=== PATIENT | male | born 1955 | race Caucasian/White ===

== ENCOUNTER 2021-09-04 23:52 | Emergency (ER) | payer MEDICARE, OTHER ==
[~2021-09-04] VITALS: Ht 182.9 cm; Wt 104.3 kg
[2021-09-05] MEDS ORDERED: METOPROLOL SUCCINATE XL 50 MG TAB PO ONE (00:15)
[2021-09-05] MEDS ORDERED: OXYCODONE W/ ACETAMINOPHEN 5/325MG TABLET PO ONE (03:30)
[2021-09-05] MEDS ORDERED: HYDROmorphone HCL 2 MG/ML VL IV ONE (04:30)
[2021-09-05] MEDS ORDERED: ONDANSETRON HCL 4 MG/2 ML VIAL IV ONE (04:30)
[2021-09-05 05:30] VITALS: BP 180/99
== END 2021-09-05 06:17 | disposition home or self-care (01) ==
LOC: EDBD 23:52 → ER 23:57
DX: S42.002A Fracture of unspecified part of left clavicle, initial encounter for closed fracture (principal); E78.5 Hyperlipidemia, unspecified; I10 Essential (primary) hypertension; W18.39XA Other fall on same level, initial encounter; Y93.89 Activity, other specified; Y92.89 Other specified places as the place of occurrence of the external cause; Y99.8 Other external cause status
CPT/HCPCS: 70450; 72125; 73030; 96374; 96375; 99285; J1170; J2405

== ENCOUNTER 2022-04-03 00:56 | Inpatient (IN) | payer OTHER ==
[~2022-04-03] VITALS: Ht 182.9 cm; Wt 93.4 kg
[2022-04-03 02:33] LABS: Basophils # (auto) 0 10 ^3/uL (0-0.2); Eosinophils # (auto) 0 10 ^3/uL (0-0.8); Eosinophils % (auto) 0.2 % (0.0-7.0); Lymphocytes # (auto) 0.5 10 ^3/uL (0.4-5.4); Monocytes # (auto) 0.4 10 ^3/uL (0-1.3)
[2022-04-03 02:34] LABS: Basophils % (auto) 0.2 % (0.0-2.0); Hematocrit 18.4 % (41.0-53.0); Lymphocytes % (auto) 6.4 % (10.0-50.0); Mean Corpuscular Hemoglobin 30.4 pg (28.0-32.0); Mean Corpuscular Hgb Conc. 33.8 g/dL (32.0-36.0); Mean Corpuscular Volume 89.8 fL (80.0-100.0); Monocytes % (auto) 4.6 % (0.0-12.0); Neutrophils # (auto) 7.2 10 ^3/uL (1.6-8.6); Neutrophils % (auto) 88.6 % (37.0-80.0); Red Blood Cells 2.05 10^6/uL (4.5-5.90); White Blood Cell 8.1 10^3/uL (4.4-10.8)
[2022-04-03 02:41] LABS: Hemoglobin 6.2 g/dL (13.5-17.5)
[2022-04-03 02:53] LABS: Urine Bacteria MANY /hpf (None Seen); Urine Blood 3+ /uL (Negative); Urine WBC 37 /hpf (0 - 3); Urine WBC Clumps PRESENT /hpf (None Seen)
[2022-04-03 02:53] LABS: Albumin 2.5 g/dL (3.4-5.0); BUN/Creatinine Ratio 24.9; Calcium 7.3 mg/dL (8.5-10.1); Potassium 4.4 mmol/L (3.5-5.1)
[2022-04-03 02:57] LABS: Bilirubin, Total 0.6 mg/dL (0.2-1.0)
[2022-04-03] MEDS ORDERED: PIPERACILLIN-TAZOB 3.375GM 100 ML IV ONE (04:30)
[2022-04-03] MEDS ORDERED: VANCOMYCIN 1GM/250ML 250 ML IV ONE (04:30)
[2022-04-03] MEDS ORDERED: DOCUSATE SOD 100 MG CAP PO PRN (06:45)
[2022-04-03] MEDS ORDERED: SODIUM CHLORIDE 0.9% 2,000 ML IV ONE (06:45)
[2022-04-03] MEDS ORDERED: FUROSEMIDE 40 MG/4 ML VIAL IV ONE (06:45)
[2022-04-03] MEDS ORDERED: MORPHINE SULFATE INJ 2 MG/ml SYRG IV PRN (07:15)
[2022-04-03] MEDS ORDERED: ALBUMIN 25% 100 ML IV ONE (07:15)
[2022-04-03] MEDS ORDERED: NITROGLYCERIN 0.4 MG SL TAB SL PRN (07:15)
[2022-04-03] MEDS: HYDROcodone-ACET 5/325MG TAB PO PRN ×2 (08:01→21:05)
[2022-04-03 08:18] LABS: Basophils # (auto) 0 10 ^3/uL (0-0.2); Basophils % (auto) 0.2 % (0.0-2.0); Eosinophils # (auto) 0 10 ^3/uL (0-0.8); Eosinophils % (auto) 0.2 % (0.0-7.0); Hematocrit 28.5 % (41.0-53.0); Hemoglobin 9.4 g/dL (13.5-17.5); Lymphocytes # (auto) 1.1 10 ^3/uL (0.4-5.4); Lymphocytes % (auto) 9.1 % (10.0-50.0); Mean Corpuscular Hemoglobin 29.4 pg (28.0-32.0); Mean Corpuscular Hgb Conc. 33.1 g/dL (32.0-36.0); Mean Corpuscular Volume 88.7 fL (80.0-100.0); Monocytes # (auto) 0.6 10 ^3/uL (0-1.3); Monocytes % (auto) 5.2 % (0.0-12.0); Neutrophils # (auto) 10.1 10 ^3/uL (1.6-8.6); Neutrophils % (auto) 85.3 % (37.0-80.0); Red Blood Cells 3.21 10^6/uL (4.5-5.90); Red Cell Distribution Width 19.3 % (11.8-14.3); White Blood Cell 11.8 10^3/uL (4.4-10.8)
[2022-04-03 08:39] LABS: Albumin 2.5 g/dL (3.4-5.0); Calcium 7.6 mg/dL (8.5-10.1); Potassium 4.4 mmol/L (3.5-5.1)
[2022-04-03 08:43] LABS: Bilirubin, Total 1.2 mg/dL (0.2-1.0); Total Protein 5.1 g/dL (6.4-8.2)
[2022-04-03] MEDS ORDERED: cefTRIAXone 1GM/50ML D5W 50 ML IV SCH (09:00)
[2022-04-03 09:10] LABS: BUN/Creatinine Ratio 25.7
[2022-04-03] MEDS: DOXYCYCLINE 100MG/250ML 250 ML IV SCH ×2 (09:15→21:06)
[2022-04-03 09:55] LABS: Thyroid Stimulating Hormone 6.49 uIU/mL (0.358-3.74)
[2022-04-03 10:01] LABS: % Iron Saturation 7.5 % (20-55)
[2022-04-03 10:12] LABS: Ferritin 813.4 ng/mL (10-322)
[2022-04-03 10:19] LABS: INR 1.09 (0.9-1.15); Partial Thromboplastin Time 28.1 sec (24.6-33.4)
[2022-04-03 10:22] LABS: Protein, Urine 127.4 mg/dL (0.0-11.9)
[2022-04-03] MEDS: PANTOPRAZOLE 40 MG/10 ML VIAL INJ IV SCH ×2 (11:08→21:05)
[2022-04-03] MEDS: FAMOTIDINE (10MG/ML) 2ML VL IV SCH (11:08)
[2022-04-03] MEDS: MULTIPLE VITAMIN TAB PO SCH (11:09)
[2022-04-03] MEDS: FUROSEMIDE 40 MG/4 ML VIAL IV SCH (11:09)
[2022-04-03] MEDS: PIPERACILLIN-TAZOB 2.25GM 50 ML IV SCH ×2 (13:42→20:58)
[2022-04-03] MEDS: LACTULOSE 20Gm/30ML SOLN PO SCH ×2 (13:51→20:57)
[2022-04-03] MEDS: SODIUM CHLOR 0.9% PF (SALINE LOCK) 10ML VIAL/SYR IV SCH ×2 (14:08→20:58)
[2022-04-03] MEDS: hydrALAZINE HCL 20 MG/ML VL IV PRN (20:57)
[2022-04-03 21:00] VITALS: BP 155/56
[2022-04-03 22:07] VITALS: BP 147/49
[2022-04-04] MEDS: PIPERACILLIN-TAZOB 2.25GM 50 ML IV SCH ×4 (00:59→19:19)
[2022-04-04] MEDS: HYDROcodone-ACET 5/325MG TAB PO PRN ×2 (00:59→06:00)
[2022-04-04] MEDS: LACTULOSE 20Gm/30ML SOLN PO SCH ×4 (00:59→18:00)
[2022-04-04] MEDS: SODIUM CHLOR 0.9% PF (SALINE LOCK) 10ML VIAL/SYR IV SCH ×3 (04:16→22:47)
[2022-04-04 05:00] VITALS: BP 156/55
[2022-04-04 05:21] LABS: Basophils # (auto) 0 10 ^3/uL (0-0.2); Eosinophils # (auto) 0.1 10 ^3/uL (0-0.8); Hematocrit 22.5 % (41.0-53.0); Hemoglobin 7.6 g/dL (13.5-17.5); Lymphocytes # (auto) 0.9 10 ^3/uL (0.4-5.4); Mean Corpuscular Hemoglobin 29.9 pg (28.0-32.0); Monocytes % (auto) 5.8 % (0.0-12.0); Red Blood Cells 2.55 10^6/uL (4.5-5.90)
[2022-04-04 05:24] LABS: Basophils % (auto) 0.2 % (0.0-2.0); Eosinophils % (auto) 1.2 % (0.0-7.0); Lymphocytes % (auto) 9.5 % (10.0-50.0); Mean Corpuscular Volume 88.1 fL (80.0-100.0); Monocytes # (auto) 0.6 10 ^3/uL (0-1.3); Neutrophils # (auto) 7.9 10 ^3/uL (1.6-8.6); Neutrophils % (auto) 83.3 % (37.0-80.0); Red Cell Distribution Width 18.8 % (11.8-14.3); White Blood Cell 9.5 10^3/uL (4.4-10.8)
[2022-04-04 05:48] LABS: Potassium 3.8 mmol/L (3.5-5.1)
[2022-04-04 05:58] LABS: Albumin 2.1 g/dL (3.4-5.0); BUN/Creatinine Ratio 22.7; Bilirubin, Total 0.7 mg/dL (0.2-1.0); Calcium 7.3 mg/dL (8.5-10.1); Magnesium 1.9 mg/dL (1.6-2.6); Phosphorus 4.6 mg/dL (2.5-4.90); Total Protein 4.5 g/dL (6.4-8.2); Uric Acid 8.8 mg/dL (3.5-7.2)
[2022-04-04] MEDS: LEVOTHYROXINE SODIUM 50 MCG TAB PO SCH (06:01)
[2022-04-04 09:50] LABS: Folate (Folic Acid) 13.62 ng/mL (5.38-24)
[2022-04-04] MEDS: DOXYCYCLINE 100MG/250ML 250 ML IV SCH ×2 (11:45→21:45)
[2022-04-04] MEDS: FAMOTIDINE (10MG/ML) 2ML VL IV SCH (12:16)
[2022-04-04] MEDS: PANTOPRAZOLE 40 MG/10 ML VIAL INJ IV SCH ×2 (12:16→22:46)
[2022-04-04] MEDS: LINEZOLID 600MG/300ML 300 ML IV SCH ×2 (12:16→22:46)
[2022-04-04] MEDS: MULTIPLE VITAMIN TAB PO SCH (12:17)
[2022-04-04] MEDS: FUROSEMIDE 40 MG/4 ML VIAL IV SCH (12:17)
[2022-04-04] MEDS ORDERED: SOD CHL 0.45% 1,000 ML IV SCH (12:45)
[2022-04-04 13:00] VITALS: BP 131/56
[2022-04-04 14:35] LABS: Calcium 7.6 mg/dL (8.5-10.1); Potassium 3.9 mmol/L (3.5-5.1)
[2022-04-04 16:47] VITALS: BP 162/55
[2022-04-04] MEDS ORDERED: CYANOCOBALAMIN (B-12) 1000 MCG/1 ML VIAL IM ONE (18:00)
[2022-04-04 21:43] VITALS: BP 177/60
[2022-04-05] MEDS: HYDROcodone-ACET 5/325MG TAB PO PRN ×3 (00:17→18:03)
[2022-04-05] MEDS: PIPERACILLIN-TAZOB 2.25GM 50 ML IV SCH ×4 (00:52→18:45)
[2022-04-05] MEDS: ONDANSETRON HCL 4 MG/2 ML VIAL IV PRN ×2 (02:10→20:47)
[2022-04-05 05:00] VITALS: BP 119/47
[2022-04-05] MEDS: LACTULOSE 20Gm/30ML SOLN PO SCH ×4 (06:00→18:00)
[2022-04-05 06:19] LABS: Basophils # (auto) 0 10 ^3/uL (0-0.2); Basophils % (auto) 0.3 % (0.0-2.0); Eosinophils # (auto) 0.1 10 ^3/uL (0-0.8); Eosinophils % (auto) 0.9 % (0.0-7.0); Hemoglobin 7.4 g/dL (13.5-17.5)
[2022-04-05] MEDS: SODIUM CHLOR 0.9% PF (SALINE LOCK) 10ML VIAL/SYR IV SCH ×3 (06:23→20:47)
[2022-04-05] MEDS: LEVOTHYROXINE SODIUM 50 MCG TAB PO SCH (06:34)
[2022-04-05 06:35] LABS: Hematocrit 21.9 % (41.0-53.0); Lymphocytes # (auto) 0.9 10 ^3/uL (0.4-5.4); Lymphocytes % (auto) 9.7 % (10.0-50.0); Mean Corpuscular Hemoglobin 29.9 pg (28.0-32.0); Mean Corpuscular Hgb Conc. 33.7 g/dL (32.0-36.0); Mean Corpuscular Volume 88.6 fL (80.0-100.0); Monocytes # (auto) 0.5 10 ^3/uL (0-1.3); Monocytes % (auto) 5.8 % (0.0-12.0); Neutrophils # (auto) 7.7 10 ^3/uL (1.6-8.6); Neutrophils % (auto) 83.3 % (37.0-80.0); Red Blood Cells 2.47 10^6/uL (4.5-5.90); White Blood Cell 9.3 10^3/uL (4.4-10.8)
[2022-04-05 06:46] LABS: BUN/Creatinine Ratio 19.5; Calcium 6.8 mg/dL (8.5-10.1); Potassium 3.6 mmol/L (3.5-5.1)
[2022-04-05 09:00] VITALS: BP 143/51
[2022-04-05] MEDS: DOXYCYCLINE 100MG/250ML 250 ML IV SCH ×2 (09:34→20:47)
[2022-04-05] MEDS: FAMOTIDINE (10MG/ML) 2ML VL IV SCH (09:35)
[2022-04-05] MEDS: CYANOCOBALAMIN (B-12) 1000 MCG/1 ML VIAL IM SCH (09:35)
[2022-04-05] MEDS: LINEZOLID 600MG/300ML 300 ML IV SCH ×2 (09:36→22:48)
[2022-04-05] MEDS: PANTOPRAZOLE 40 MG/10 ML VIAL INJ IV SCH ×2 (09:36→20:47)
[2022-04-05] MEDS: MULTIPLE VITAMIN TAB PO SCH (09:36)
[2022-04-05] MEDS: FUROSEMIDE 40 MG/4 ML VIAL IV SCH (09:38)
[2022-04-05] MEDS: ALBUMIN 25% 100 ML IV SCH ×2 (10:00→11:00)
[2022-04-05] MEDS: SODIUM FERR GLUC 62.5MG/5ML 125 MG in SODIUM CHL 0.9% 100 ML IV SCH (12:53)
[2022-04-05 12:54] VITALS: BP 156/55
[2022-04-05] MEDS: ALBUMIN 25% 50 ML IV SCH ×4 (16:01→18:02)
[2022-04-05 16:47] VITALS: BP 153/52
[2022-04-05 22:00] VITALS: BP 129/47
[2022-04-06] MEDS: PIPERACILLIN-TAZOB 2.25GM 50 ML IV SCH ×3 (00:02→14:42)
[2022-04-06] MEDS: HYDROcodone-ACET 5/325MG TAB PO PRN ×3 (02:54→21:05)
[2022-04-06 05:00] VITALS: BP 150/57
[2022-04-06] MEDS: SODIUM CHLOR 0.9% PF (SALINE LOCK) 10ML VIAL/SYR IV SCH ×3 (05:53→21:57)
[2022-04-06] MEDS: LEVOTHYROXINE SODIUM 50 MCG TAB PO SCH (05:54)
[2022-04-06] MEDS: LACTULOSE 20Gm/30ML SOLN PO SCH ×4 (05:54→17:29)
[2022-04-06 05:57] LABS: Basophils # (auto) 0 10 ^3/uL (0-0.2); Basophils % (auto) 0.6 % (0.0-2.0); Eosinophils # (auto) 0.2 10 ^3/uL (0-0.8); Hematocrit 21.7 % (41.0-53.0); Hemoglobin 7.3 g/dL (13.5-17.5); Lymphocytes # (auto) 0.9 10 ^3/uL (0.4-5.4); Mean Corpuscular Hgb Conc. 33.7 g/dL (32.0-36.0); Neutrophils # (auto) 4.7 10 ^3/uL (1.6-8.6); Red Blood Cells 2.44 10^6/uL (4.5-5.90)
[2022-04-06 06:01] LABS: Eosinophils % (auto) 3.2 % (0.0-7.0); Lymphocytes % (auto) 14.7 % (10.0-50.0); Monocytes # (auto) 0.6 10 ^3/uL (0-1.3); Neutrophils % (auto) 72.5 % (37.0-80.0); Nucleated Red Blood Cells % 0.1 %; Red Cell Distribution Width 18.8 % (11.8-14.3); White Blood Cell 6.4 10^3/uL (4.4-10.8)
[2022-04-06 06:04] LABS: BUN/Creatinine Ratio 17.7; Calcium 7.1 mg/dL (8.5-10.1); Potassium 3.6 mmol/L (3.5-5.1)
[2022-04-06 09:00] VITALS: BP 153/50
[2022-04-06] MEDS: SODIUM CHLORIDE 0.9% 1,000 ML IV SCH (09:30)
[2022-04-06] MEDS: CYANOCOBALAMIN (B-12) 1000 MCG/1 ML VIAL IM SCH (09:40)
[2022-04-06] MEDS: LINEZOLID 600MG/300ML 300 ML IV SCH ×2 (09:41→21:57)
[2022-04-06] MEDS: PANTOPRAZOLE 40 MG/10 ML VIAL INJ IV SCH ×2 (09:41→21:56)
[2022-04-06] MEDS: FAMOTIDINE (10MG/ML) 2ML VL IV SCH (09:41)
[2022-04-06] MEDS: MULTIPLE VITAMIN TAB PO SCH (09:42)
[2022-04-06] MEDS: FUROSEMIDE 40 MG/4 ML VIAL IV SCH (09:45)
[2022-04-06] MEDS: SODIUM FERR GLUC 62.5MG/5ML 125 MG in SODIUM CHL 0.9% 100 ML IV SCH (12:43)
[2022-04-06 12:53] VITALS: BP 148/51
[2022-04-06 16:21] LABS: Calcium 7.3 mg/dL (8.5-10.1); Potassium 3.6 mmol/L (3.5-5.1)
[2022-04-06 16:23] LABS: BUN/Creatinine Ratio 16.6
[2022-04-06 17:00] VITALS: BP 152/61
[2022-04-06] MEDS: hydrALAZINE HCL 20 MG/ML VL IV PRN (17:51)
[2022-04-06 22:00] VITALS: BP 163/60
[2022-04-07] MEDS: PIPERACILLIN-TAZOB 2.25GM 50 ML IV SCH ×3 (00:06→14:03)
[2022-04-07] MEDS: SODIUM CHLORIDE 0.9% 1,000 ML IV SCH (02:23)
[2022-04-07] MEDS: HYDROcodone-ACET 5/325MG TAB PO PRN ×3 (04:42→23:26)
[2022-04-07 05:00] VITALS: BP 152/63
[2022-04-07 05:44] LABS: Basophils # (auto) 0.1 10 ^3/uL (0-0.2); Eosinophils # (auto) 0.2 10 ^3/uL (0-0.8); Hemoglobin 7.8 g/dL (13.5-17.5); Monocytes # (auto) 0.6 10 ^3/uL (0-1.3); Neutrophils # (auto) 4.2 10 ^3/uL (1.6-8.6); Nucleated Red Blood Cells % 0.1 %; White Blood Cell 6.1 10^3/uL (4.4-10.8)
[2022-04-07 05:47] LABS: Basophils % (auto) 0.8 % (0.0-2.0); Eosinophils % (auto) 3.3 % (0.0-7.0); Hematocrit 23.1 % (41.0-53.0); Lymphocytes % (auto) 17.2 % (10.0-50.0); Mean Corpuscular Hemoglobin 29.7 pg (28.0-32.0); Mean Corpuscular Hgb Conc. 33.6 g/dL (32.0-36.0); Mean Corpuscular Volume 88.4 fL (80.0-100.0); Monocytes % (auto) 9.8 % (0.0-12.0); Neutrophils % (auto) 68.9 % (37.0-80.0); Red Blood Cells 2.62 10^6/uL (4.5-5.90); Red Cell Distribution Width 18.3 % (11.8-14.3)
[2022-04-07 05:53] LABS: BUN/Creatinine Ratio 15.8; Calcium 7.2 mg/dL (8.5-10.1); Potassium 3.5 mmol/L (3.5-5.1)
[2022-04-07] MEDS: LACTULOSE 20Gm/30ML SOLN PO SCH ×4 (06:00→17:37)
[2022-04-07] MEDS: LEVOTHYROXINE SODIUM 50 MCG TAB PO SCH (06:11)
[2022-04-07] MEDS: hydrALAZINE HCL 20 MG/ML VL IV PRN ×2 (08:00→14:04)
[2022-04-07 08:49] VITALS: BP 178/66
[2022-04-07] MEDS: FUROSEMIDE 40 MG/4 ML VIAL IV SCH (10:49)
[2022-04-07] MEDS: LINEZOLID 600MG/300ML 300 ML IV SCH ×2 (10:49→23:26)
[2022-04-07] MEDS: PANTOPRAZOLE 40 MG/10 ML VIAL INJ IV SCH ×2 (10:49→23:26)
[2022-04-07] MEDS: MULTIPLE VITAMIN TAB PO SCH (10:49)
[2022-04-07] MEDS: FAMOTIDINE (10MG/ML) 2ML VL IV SCH (10:49)
[2022-04-07] MEDS: CYANOCOBALAMIN (B-12) 1000 MCG/1 ML VIAL IM SCH (10:50)
[2022-04-07] MEDS: SODIUM CHLOR 0.9% PF (SALINE LOCK) 10ML VIAL/SYR IV SCH ×3 (12:00→23:26)
[2022-04-07] MEDS: SODIUM FERR GLUC 62.5MG/5ML 125 MG in SODIUM CHL 0.9% 100 ML IV SCH (12:30)
[2022-04-07 13:00] VITALS: BP 168/71
[2022-04-07 17:00] VITALS: BP 142/58
[2022-04-07 21:58] VITALS: BP 119/53
[2022-04-08] MEDS: SODIUM CHLORIDE 0.9% 1,000 ML IV SCH
[2022-04-08] MEDS: PIPERACILLIN-TAZOB 2.25GM 50 ML IV SCH ×4 (00:03→22:17)
[2022-04-08 05:00] VITALS: BP 162/64
[2022-04-08] MEDS: SODIUM CHLOR 0.9% PF (SALINE LOCK) 10ML VIAL/SYR IV SCH ×3 (06:14→22:12)
[2022-04-08] MEDS: LACTULOSE 20Gm/30ML SOLN PO SCH ×4 (06:24→18:00)
[2022-04-08] MEDS: LEVOTHYROXINE SODIUM 50 MCG TAB PO SCH (06:24)
[2022-04-08] MEDS: hydrALAZINE HCL 20 MG/ML VL IV PRN (06:27)
[2022-04-08 06:42] LABS: Basophils # (auto) 0 10 ^3/uL (0-0.2); Eosinophils # (auto) 0.1 10 ^3/uL (0-0.8); Eosinophils % (auto) 2.7 % (0.0-7.0); Mean Corpuscular Hemoglobin 30.9 pg (28.0-32.0); Mean Corpuscular Hgb Conc. 34.8 g/dL (32.0-36.0); Monocytes # (auto) 0.5 10 ^3/uL (0-1.3); Nucleated Red Blood Cells % 0.1 %; Red Cell Distribution Width 18.9 % (11.8-14.3); White Blood Cell 5.4 10^3/uL (4.4-10.8)
[2022-04-08 06:44] LABS: Basophils % (auto) 0.8 % (0.0-2.0); Hematocrit 23.4 % (41.0-53.0); Hemoglobin 8.1 g/dL (13.5-17.5); Lymphocytes % (auto) 18.1 % (10.0-50.0); Monocytes % (auto) 8.7 % (0.0-12.0); Neutrophils # (auto) 3.8 10 ^3/uL (1.6-8.6); Neutrophils % (auto) 69.7 % (37.0-80.0); Red Blood Cells 2.63 10^6/uL (4.5-5.90)
[2022-04-08 06:48] LABS: BUN/Creatinine Ratio 14.6; Calcium 7.4 mg/dL (8.5-10.1); Potassium 3.5 mmol/L (3.5-5.1)
[2022-04-08] MEDS ORDERED: SODIUM CHL 0.9% 1000 ML BAG XX ONE (07:00)
[2022-04-08] MEDS: LINEZOLID 600MG/300ML 300 ML IV SCH ×2 (09:40→22:17)
[2022-04-08] MEDS: FAMOTIDINE (10MG/ML) 2ML VL IV SCH (09:40)
[2022-04-08] MEDS: PANTOPRAZOLE 40 MG/10 ML VIAL INJ IV SCH ×2 (09:40→22:17)
[2022-04-08] MEDS: MULTIPLE VITAMIN TAB PO SCH (09:41)
[2022-04-08] MEDS: FUROSEMIDE 40 MG/4 ML VIAL IV SCH (09:42)
[2022-04-08] MEDS ORDERED: LIDOCAINE 2%HCL (LOCAL ANESTH.) INJ 20ML MDV ONE (10:13)
[2022-04-08] MEDS ORDERED: fentaNYL CITRATE 100 MCG/2 ML VL ONE (10:17)
[2022-04-08] MEDS ORDERED: MIDAZOLAM HCL 2MG/2ML 2ml VIAL (1mg/ml) ONE (10:18)
[2022-04-08 10:29] LABS: INR 1.06 (0.9-1.15); Partial Thromboplastin Time 34.4 sec (24.6-33.4)
[2022-04-08] MEDS ORDERED: HEPARIN SODIUM (PORCINE) 5000 UNITS/ML 1ML VIAL ONE (10:47)
[2022-04-08] MEDS: hydrALAZINE HCL 25 MG TAB PO PRN ×2 (11:13→22:16)
[2022-04-08] MEDS: CYANOCOBALAMIN (B-12) 1000 MCG/1 ML VIAL IM SCH (12:30)
[2022-04-08 13:00] VITALS: BP 195/83
[2022-04-08] MEDS: SODIUM FERR GLUC 62.5MG/5ML 125 MG in SODIUM CHL 0.9% 100 ML IV SCH (13:00)
[2022-04-08] MEDS: HYDROcodone-ACET 5/325MG TAB PO PRN ×2 (17:15→22:17)
[2022-04-08] MEDS: Juven Fruit Punch Powder PACKET 28.8gm PO SCH (18:00)
[2022-04-08] MEDS: SOD CHL 0.45% 1,000 ML IV SCH (18:15)
[2022-04-08] MEDS ORDERED: EPOETIN ALFA-EPBX 10,000 UNIT/1ML VIAL SC ONE (21:00)
[2022-04-08 22:00] VITALS: BP 185/67
[2022-04-09] MEDS: hydrALAZINE HCL 20 MG/ML VL IV PRN ×2 (01:34→23:19)
[2022-04-09] MEDS: SOD CHL 0.45% 1,000 ML IV SCH ×3 (02:15→18:15)
[2022-04-09 05:00] VITALS: BP 185/73
[2022-04-09] MEDS: LACTULOSE 20Gm/30ML SOLN PO SCH ×4 (06:00→18:00)
[2022-04-09 06:16] LABS: Basophils # (auto) 0.1 10 ^3/uL (0-0.2); Eosinophils # (auto) 0.1 10 ^3/uL (0-0.8); Eosinophils % (auto) 1.8 % (0.0-7.0); Hematocrit 24.9 % (41.0-53.0); Hemoglobin 8.5 g/dL (13.5-17.5); Lymphocytes # (auto) 1.1 10 ^3/uL (0.4-5.4); Lymphocytes % (auto) 17.1 % (10.0-50.0); Mean Corpuscular Hemoglobin 30.2 pg (28.0-32.0); Mean Corpuscular Hgb Conc. 34.1 g/dL (32.0-36.0); Mean Corpuscular Volume 88.4 fL (80.0-100.0); Monocytes # (auto) 0.4 10 ^3/uL (0-1.3); Monocytes % (auto) 7.2 % (0.0-12.0); Neutrophils # (auto) 4.5 10 ^3/uL (1.6-8.6); Neutrophils % (auto) 72.9 % (37.0-80.0); Red Blood Cells 2.82 10^6/uL (4.5-5.90); Red Cell Distribution Width 18.4 % (11.8-14.3); White Blood Cell 6.2 10^3/uL (4.4-10.8)
[2022-04-09] MEDS: LEVOTHYROXINE SODIUM 50 MCG TAB PO SCH (06:19)
[2022-04-09] MEDS: PIPERACILLIN-TAZOB 2.25GM 50 ML IV SCH ×3 (06:20→21:28)
[2022-04-09] MEDS: SODIUM CHLOR 0.9% PF (SALINE LOCK) 10ML VIAL/SYR IV SCH ×3 (06:20→21:28)
[2022-04-09 06:28] LABS: Calcium 7.4 mg/dL (8.5-10.1); Potassium 3.4 mmol/L (3.5-5.1)
[2022-04-09 06:32] LABS: BUN/Creatinine Ratio 12.9
[2022-04-09 08:00] VITALS: BP 196/78
[2022-04-09] MEDS: Juven Fruit Punch Powder PACKET 28.8gm PO SCH ×2 (08:00→18:00)
[2022-04-09 08:57] VITALS: BP 180/75
[2022-04-09] MEDS ORDERED: SODIUM CHL 0.9% 1000 ML BAG XX ONE (09:30)
[2022-04-09] MEDS: PANTOPRAZOLE 40 MG/10 ML VIAL INJ IV SCH ×2 (09:33→21:26)
[2022-04-09] MEDS: ONDANSETRON HCL 4 MG/2 ML VIAL IV PRN (09:38)
[2022-04-09] MEDS: FAMOTIDINE (10MG/ML) 2ML VL IV SCH (09:39)
[2022-04-09] MEDS: LINEZOLID 600MG/300ML 300 ML IV SCH ×2 (12:14→23:58)
[2022-04-09] MEDS: MULTIPLE VITAMIN TAB PO SCH (12:14)
[2022-04-09 12:30] VITALS: BP 172/62
[2022-04-09] MEDS: hydrALAZINE HCL 25 MG TAB PO PRN ×2 (12:43→21:40)
[2022-04-09] MEDS: CYANOCOBALAMIN (B-12) 1000 MCG/1 ML VIAL IM SCH (13:05)
[2022-04-09] MEDS: HYDROcodone-ACET 5/325MG TAB PO PRN ×2 (13:24→21:25)
[2022-04-09 16:38] VITALS: BP 167/64
[2022-04-09] MEDS: SODIUM FERR GLUC 62.5MG/5ML 125 MG in SODIUM CHL 0.9% 100 ML IV SCH (17:27)
[2022-04-09 22:00] VITALS: BP 177/73
[2022-04-10 00:33] VITALS: BP 147/81
[2022-04-10 05:00] VITALS: BP 149/57
[2022-04-10] MEDS: PIPERACILLIN-TAZOB 2.25GM 50 ML IV SCH ×3 (05:33→22:58)
[2022-04-10] MEDS: LACTULOSE 20Gm/30ML SOLN PO SCH ×4 (05:33→17:29)
[2022-04-10] MEDS: SODIUM CHLOR 0.9% PF (SALINE LOCK) 10ML VIAL/SYR IV SCH ×3 (05:35→20:47)
[2022-04-10] MEDS: LEVOTHYROXINE SODIUM 50 MCG TAB PO SCH (06:07)
[2022-04-10 08:00] VITALS: BP_SYST 178; BP_SYST 188; BP_DIAS 75; BP_DIAS 81
[2022-04-10] MEDS: Juven Fruit Punch Powder PACKET 28.8gm PO SCH ×2 (08:00→17:29)
[2022-04-10] MEDS: hydrALAZINE HCL 25 MG TAB PO PRN ×2 (09:27→17:35)
[2022-04-10] MEDS: ACETAMINOPHEN 325 MG TAB PO PRN ×2 (09:28→20:02)
[2022-04-10] MEDS: CYANOCOBALAMIN (B-12) 1000 MCG/1 ML VIAL IM SCH (09:28)
[2022-04-10] MEDS: MULTIPLE VITAMIN TAB PO SCH (09:29)
[2022-04-10] MEDS: LINEZOLID 600MG/300ML 300 ML IV SCH ×2 (09:29→20:47)
[2022-04-10] MEDS: PANTOPRAZOLE 40 MG/10 ML VIAL INJ IV SCH ×2 (09:29→22:40)
[2022-04-10] MEDS: SOD CHL 0.45% 1,000 ML IV SCH ×2 (10:15→10:28)
[2022-04-10 11:47] LABS: Potassium 3.3 mmol/L (3.5-5.1)
[2022-04-10 11:49] LABS: BUN/Creatinine Ratio 10.9; Calcium 7.2 mg/dL (8.5-10.1)
[2022-04-10] MEDS: SODIUM FERR GLUC 62.5MG/5ML 125 MG in SODIUM CHL 0.9% 100 ML IV SCH (11:49)
[2022-04-10 12:00] VITALS: BP 176/70
[2022-04-10] MEDS: hydrALAZINE HCL 20 MG/ML VL IV PRN (12:41)
[2022-04-10] MEDS ORDERED: MECLIZINE HCL 25 MG TAB PO PRN (15:15)
[2022-04-10 16:00] VITALS: BP 179/79
[2022-04-10 22:00] VITALS: BP 179/74
[2022-04-10] MEDS: hydrALAZINE HCL 25 MG TAB PO SCH (22:40)
[2022-04-11] VITALS (7 sets, daily range): BP systolic 155–187; BP diastolic 60–81
[2022-04-11] MEDS: hydrALAZINE HCL 20 MG/ML VL IV PRN ×2 (00:05→07:22)
[2022-04-11] MEDS: hydrALAZINE HCL 25 MG TAB PO SCH ×3 (04:58→22:59)
[2022-04-11] MEDS: SODIUM CHLOR 0.9% PF (SALINE LOCK) 10ML VIAL/SYR IV SCH ×3 (04:58→22:57)
[2022-04-11] MEDS: PIPERACILLIN-TAZOB 2.25GM 50 ML IV SCH ×3 (05:31→22:57)
[2022-04-11] MEDS: LACTULOSE 20Gm/30ML SOLN PO SCH ×4 (05:46→17:36)
[2022-04-11] MEDS: LEVOTHYROXINE SODIUM 50 MCG TAB PO SCH (06:04)
[2022-04-11 06:23] LABS: Basophils # (auto) 0 10 ^3/uL (0-0.2); Basophils % (auto) 0.9 % (0.0-2.0); Eosinophils # (auto) 0.1 10 ^3/uL (0-0.8); Hematocrit 24.6 % (41.0-53.0); Hemoglobin 8.5 g/dL (13.5-17.5); Lymphocytes % (auto) 21.3 % (10.0-50.0); Mean Corpuscular Hgb Conc. 34.6 g/dL (32.0-36.0); Mean Corpuscular Volume 89.5 fL (80.0-100.0); Monocytes # (auto) 0.3 10 ^3/uL (0-1.3); Neutrophils # (auto) 3.1 10 ^3/uL (1.6-8.6); Neutrophils % (auto) 68.8 % (37.0-80.0); Nucleated Red Blood Cells % 0.1 %; Red Blood Cells 2.74 10^6/uL (4.5-5.90); White Blood Cell 4.5 10^3/uL (4.4-10.8)
[2022-04-11 06:39] LABS: BUN/Creatinine Ratio 10.5; Calcium 7.3 mg/dL (8.5-10.1); Potassium 3.3 mmol/L (3.5-5.1)
[2022-04-11] MEDS: Juven Fruit Punch Powder PACKET 28.8gm PO SCH ×2 (08:00→18:00)
[2022-04-11] MEDS: HYDROcodone-ACET 5/325MG TAB PO PRN ×2 (09:03→20:35)
[2022-04-11] MEDS: LINEZOLID 600MG/300ML 300 ML IV SCH ×2 (10:52→22:58)
[2022-04-11] MEDS: FAMOTIDINE (10MG/ML) 2ML VL IV SCH (10:54)
[2022-04-11] MEDS: CYANOCOBALAMIN (B-12) 1000 MCG/1 ML VIAL IM SCH (10:56)
[2022-04-11] MEDS: PANTOPRAZOLE 40 MG/10 ML VIAL INJ IV SCH ×2 (10:56→22:57)
[2022-04-11] MEDS: MULTIPLE VITAMIN TAB PO SCH (10:57)
[2022-04-11] MEDS: ONDANSETRON HCL 4 MG/2 ML VIAL IV PRN ×2 (11:01→20:35)
[2022-04-11] MEDS ORDERED: FUROSEMIDE 40 MG/4 ML VIAL IV ONE (12:30)
[2022-04-11 14:00] LABS: Protein, Urine 227.2 mg/dL (0.0-11.9)
[2022-04-11] MEDS ORDERED: SODIUM FERR GLUC 62.5MG/5ML 125 MG in SODIUM CHL 0.9% 100 ML IV ONE (14:00)
[2022-04-12] MEDS: LACTULOSE 20Gm/30ML SOLN PO SCH ×4 (01:15→18:00)
[2022-04-12 05:00] VITALS: BP 162/65
[2022-04-12] MEDS: SODIUM CHLOR 0.9% PF (SALINE LOCK) 10ML VIAL/SYR IV SCH ×3 (05:47→21:26)
[2022-04-12] MEDS: hydrALAZINE HCL 25 MG TAB PO SCH ×3 (05:47→21:28)
[2022-04-12] MEDS: LEVOTHYROXINE SODIUM 25 MCG TAB PO SCH (05:48)
[2022-04-12] MEDS: LEVOTHYROXINE SODIUM 50 MCG TAB PO SCH (05:48)
[2022-04-12 06:10] LABS: Eosinophils # (auto) 0.1 10 ^3/uL (0-0.8); Hemoglobin 7.6 g/dL (13.5-17.5); Monocytes # (auto) 0.3 10 ^3/uL (0-1.3)
[2022-04-12] MEDS: PIPERACILLIN-TAZOB 2.25GM 50 ML IV SCH (06:14)
[2022-04-12 06:15] LABS: Basophils # (auto) 0 10 ^3/uL (0-0.2); Eosinophils % (auto) 1.8 % (0.0-7.0); Hematocrit 21.8 % (41.0-53.0); Lymphocytes % (auto) 24.7 % (10.0-50.0); Mean Corpuscular Hemoglobin 30.6 pg (28.0-32.0); Mean Corpuscular Hgb Conc. 34.7 g/dL (32.0-36.0); Mean Corpuscular Volume 88.2 fL (80.0-100.0); Monocytes % (auto) 7.2 % (0.0-12.0); Neutrophils # (auto) 2.7 10 ^3/uL (1.6-8.6); Neutrophils % (auto) 65.3 % (37.0-80.0); Nucleated Red Blood Cells % 0.2 %; Red Blood Cells 2.47 10^6/uL (4.5-5.90); Red Cell Distribution Width 19.1 % (11.8-14.3); White Blood Cell 4.2 10^3/uL (4.4-10.8)
[2022-04-12 06:30] LABS: BUN/Creatinine Ratio 9.7; Calcium 7.3 mg/dL (8.5-10.1); Potassium 3.4 mmol/L (3.5-5.1)
[2022-04-12] MEDS ORDERED: SODIUM CHL 0.9% 1000 ML BAG XX ONE (07:00)
[2022-04-12] MEDS: HYDROcodone-ACET 5/325MG TAB PO PRN ×3 (07:14→21:29)
[2022-04-12] MEDS: Juven Fruit Punch Powder PACKET 28.8gm PO SCH ×2 (08:00→18:18)
[2022-04-12 08:25] VITALS: BP 170/75
[2022-04-12] MEDS ORDERED: POTASSIUM CHL 10 Meq TABLET PO ONE (08:30)
[2022-04-12] MEDS ORDERED: POTASSIUM CHL 20 Meq TABLET PO ONE (10:15)
[2022-04-12] MEDS: PANTOPRAZOLE 40 MG/10 ML VIAL INJ IV SCH ×2 (14:46→21:26)
[2022-04-12] MEDS: CYANOCOBALAMIN (B-12) 1000 MCG/1 ML VIAL IM SCH (14:54)
[2022-04-12] MEDS: MULTIPLE VITAMIN TAB PO SCH (14:55)
[2022-04-12] MEDS ORDERED: FUROSEMIDE 40 MG/4 ML VIAL ONE (15:16)
[2022-04-12] MEDS: SODIUM FERR GLUC 62.5MG/5ML 125 MG in SODIUM CHL 0.9% 100 ML IV SCH (16:07)
[2022-04-12 16:20] VITALS: BP 187/74
[2022-04-12] MEDS: hydrALAZINE HCL 20 MG/ML VL IV PRN (16:59)
[2022-04-12] MEDS ORDERED: EPOETIN ALFA-EPBX 10,000 UNIT/1ML VIAL SC ONE (21:00)
[2022-04-12 21:29] VITALS: BP 159/60
[2022-04-12 22:00] VITALS: BP 159/60
[2022-04-13] VITALS (8 sets, daily range): BP systolic 141–181; BP diastolic 45–81
[2022-04-13] MEDS: LACTULOSE 20Gm/30ML SOLN PO SCH ×4 (05:13→18:00)
[2022-04-13] MEDS: SODIUM CHLOR 0.9% PF (SALINE LOCK) 10ML VIAL/SYR IV SCH ×3 (05:13→21:39)
[2022-04-13] MEDS: hydrALAZINE HCL 25 MG TAB PO SCH ×3 (05:20→21:38)
[2022-04-13] MEDS: LEVOTHYROXINE SODIUM 50 MCG TAB PO SCH (05:20)
[2022-04-13] MEDS: LEVOTHYROXINE SODIUM 25 MCG TAB PO SCH (05:20)
[2022-04-13 06:23] LABS: Basophils # (auto) 0 10 ^3/uL (0-0.2); Hemoglobin 7.7 g/dL (13.5-17.5)
[2022-04-13 06:28] LABS: Basophils % (auto) 1.2 % (0.0-2.0); Eosinophils # (auto) 0.1 10 ^3/uL (0-0.8); Eosinophils % (auto) 1.4 % (0.0-7.0); Hematocrit 23.3 % (41.0-53.0); Lymphocytes # (auto) 1.1 10 ^3/uL (0.4-5.4); Mean Corpuscular Hemoglobin 30.1 pg (28.0-32.0); Mean Corpuscular Hgb Conc. 33.1 g/dL (32.0-36.0); Mean Corpuscular Volume 90.7 fL (80.0-100.0); Monocytes # (auto) 0.3 10 ^3/uL (0-1.3); Monocytes % (auto) 8.9 % (0.0-12.0); Neutrophils # (auto) 2.1 10 ^3/uL (1.6-8.6); Neutrophils % (auto) 58.5 % (37.0-80.0); Nucleated Red Blood Cells % 0.3 %; Red Blood Cells 2.57 10^6/uL (4.5-5.90); Red Cell Distribution Width 18.8 % (11.8-14.3); White Blood Cell 3.6 10^3/uL (4.4-10.8)
[2022-04-13 06:39] LABS: BUN/Creatinine Ratio 8.5; Calcium 7.3 mg/dL (8.5-10.1); Potassium 3.4 mmol/L (3.5-5.1)
[2022-04-13] MEDS: Juven Fruit Punch Powder PACKET 28.8gm PO SCH ×2 (08:00→18:00)
[2022-04-13] MEDS: PANTOPRAZOLE 40 MG/10 ML VIAL INJ IV SCH (09:50)
[2022-04-13] MEDS: CYANOCOBALAMIN (B-12) 1000 MCG/1 ML VIAL IM SCH (09:50)
[2022-04-13] MEDS: MULTIPLE VITAMIN TAB PO SCH (09:50)
[2022-04-13] MEDS: SODIUM FERR GLUC 62.5MG/5ML 125 MG in SODIUM CHL 0.9% 100 ML IV SCH (11:33)
[2022-04-13] MEDS: Pro-Stat SF 30ml Vanilla PO SCH (18:00)
[2022-04-13] MEDS: HYDROcodone-ACET 5/325MG TAB PO PRN (18:54)
[2022-04-13] MEDS: FAMOTIDINE 20 MG TAB PO SCH (21:38)
[2022-04-14] VITALS (7 sets, daily range): BP systolic 149–189; BP diastolic 69–81
[2022-04-14] MEDS: hydrALAZINE HCL 20 MG/ML VL IV PRN (04:43)
[2022-04-14] MEDS: HYDROcodone-ACET 5/325MG TAB PO PRN (04:44)
[2022-04-14] MEDS: SODIUM CHLOR 0.9% PF (SALINE LOCK) 10ML VIAL/SYR IV SCH ×3 (05:46→21:34)
[2022-04-14 06:30] LABS: Basophils # (auto) 0 10 ^3/uL (0-0.2); Eosinophils # (auto) 0 10 ^3/uL (0-0.8); Hemoglobin 7.8 g/dL (13.5-17.5); Mean Corpuscular Hemoglobin 30.4 pg (28.0-32.0); Monocytes # (auto) 0.4 10 ^3/uL (0-1.3); Red Blood Cells 2.58 10^6/uL (4.5-5.90); White Blood Cell 4.1 10^3/uL (4.4-10.8)
[2022-04-14 06:32] LABS: Hematocrit 22.9 % (41.0-53.0); Lymphocytes # (auto) 1.5 10 ^3/uL (0.4-5.4); Lymphocytes % (auto) 35.6 % (10.0-50.0); Mean Corpuscular Hgb Conc. 34.2 g/dL (32.0-36.0); Mean Corpuscular Volume 88.9 fL (80.0-100.0); Monocytes % (auto) 10.7 % (0.0-12.0); Neutrophils # (auto) 2.1 10 ^3/uL (1.6-8.6); Neutrophils % (auto) 51.7 % (37.0-80.0); Nucleated Red Blood Cells % 0.2 %; Red Cell Distribution Width 18.9 % (11.8-14.3)
[2022-04-14] MEDS: LEVOTHYROXINE SODIUM 25 MCG TAB PO SCH (06:34)
[2022-04-14] MEDS: hydrALAZINE HCL 25 MG TAB PO SCH ×3 (06:34→21:34)
[2022-04-14] MEDS ORDERED: SODIUM CHL 0.9% 1000 ML BAG XX ONE (07:00)
[2022-04-14] MEDS: Pro-Stat SF 30ml Vanilla PO SCH ×2 (08:00→18:45)
[2022-04-14] MEDS: LACTULOSE 20Gm/30ML SOLN PO SCH ×4 (08:30→18:00)
[2022-04-14] MEDS: MULTIPLE VITAMIN TAB PO SCH (09:40)
[2022-04-14] MEDS: CYANOCOBALAMIN (B-12) 1000 MCG/1 ML VIAL IM SCH (09:48)
[2022-04-14] MEDS: Juven Fruit Punch Powder PACKET 28.8gm PO SCH ×2 (09:49→18:45)
[2022-04-14] MEDS ORDERED: cloNIDine HCL 0.1 MG TAB PO PRN (11:30)
[2022-04-14] MEDS ORDERED: hydrALAZINE HCL 25 MG TAB PO PRN (11:30)
[2022-04-14] MEDS: SODIUM FERR GLUC 62.5MG/5ML 125 MG in SODIUM CHL 0.9% 100 ML IV SCH (12:56)
[2022-04-14] MEDS ORDERED: hydrALAZINE HCL 25 MG TAB PO ONE (13:45)
[2022-04-14] MEDS ORDERED: hydrALAZINE HCL 25 MG TAB PO SCH (14:00)
[2022-04-14] MEDS: amLODIPine BESYLATE 5 MG TAB PO SCH (16:00)
[2022-04-14] MEDS: cloNIDine HCL 0.1 MG TAB PO PRN (18:44)
[2022-04-14] MEDS ORDERED: EPOETIN ALFA-EPBX 10,000 UNIT/1ML VIAL SC ONE (21:00)
[2022-04-14] MEDS: FAMOTIDINE 20 MG TAB PO SCH (21:33)
[2022-04-15 05:00] VITALS: BP 175/76
[2022-04-15] MEDS: cloNIDine HCL 0.1 MG TAB PO PRN ×2 (05:01→12:50)
[2022-04-15] MEDS: hydrALAZINE HCL 25 MG TAB PO SCH (06:05)
[2022-04-15] MEDS: LACTULOSE 20Gm/30ML SOLN PO SCH ×2 (06:05)
[2022-04-15] MEDS: SODIUM CHLOR 0.9% PF (SALINE LOCK) 10ML VIAL/SYR IV SCH (06:06)
[2022-04-15 06:12] LABS: Albumin 2.4 g/dL (3.4-5.0); BUN/Creatinine Ratio 7.6; Calcium 7.7 mg/dL (8.5-10.1); Phosphorus 2.1 mg/dL (2.5-4.90); Potassium 3.2 mmol/L (3.5-5.1)
[2022-04-15] MEDS: LEVOTHYROXINE SODIUM 25 MCG TAB PO SCH (06:28)
[2022-04-15] MEDS ORDERED: POTASSIUM PHOSPHATE 22 MEQ in SODIUM CHL 0.9% 100 ML IV ONE (07:30)
[2022-04-15] MEDS: Pro-Stat SF 30ml Vanilla PO SCH (08:00)
[2022-04-15] MEDS: Juven Fruit Punch Powder PACKET 28.8gm PO SCH (08:00)
[2022-04-15 09:00] VITALS: BP 169/72
[2022-04-15] MEDS ORDERED: LOSARTAN POTASSIUM 50 MG TAB PO SCH (10:00)
[2022-04-15] MEDS: MULTIPLE VITAMIN TAB PO SCH (10:21)
[2022-04-15] MEDS: CYANOCOBALAMIN (B-12) 1000 MCG/1 ML VIAL IM SCH (10:21)
[2022-04-15] MEDS: amLODIPine BESYLATE 5 MG TAB PO SCH (10:21)
[2022-04-15 11:33] VITALS: BP 150/88
[2022-04-15 13:00] VITALS: BP 162/76
== END 2022-04-15 14:15 | DRG 673 ==
LOC: EDBD 00:56 → ER 00:56 → TELE 07:08 → TELE-EAST 19:40
PROVIDERS: ADMIT Nurse Practitioner Family; ATTEND Internal Medicine
PROC: 0JH63XZ Insertion of Tunneled Vascular Access Device into Chest Subcutaneous Tissue and Fascia, Percutaneous Approach (ICD-10-PCS; principal; 2022-04-08)
PROC: 02H633Z Insertion of Infusion Device into Right Atrium, Percutaneous Approach (ICD-10-PCS; 2022-04-08)
PROC: B5181ZA Fluoroscopy of Superior Vena Cava using Low Osmolar Contrast, Guidance (ICD-10-PCS; 2022-04-08)
PROC: B548ZZA Ultrasonography of Superior Vena Cava, Guidance (ICD-10-PCS; 2022-04-08)
PROC: 5A1D70Z Performance of Urinary Filtration, Intermittent, Less than 6 Hours Per Day (ICD-10-PCS; 2022-04-09)
PROC: 5A1D70Z Performance of Urinary Filtration, Intermittent, Less than 6 Hours Per Day (ICD-10-PCS; 2022-04-12)
PROC: 5A1D70Z Performance of Urinary Filtration, Intermittent, Less than 6 Hours Per Day (ICD-10-PCS; 2022-04-14)
DX: N17.0 Acute kidney failure with tubular necrosis (principal); E43 Unspecified severe protein-calorie malnutrition; J69.0 Pneumonitis due to inhalation of food and vomit; G92.8 Other toxic encephalopathy; L89.154 Pressure ulcer of sacral region, stage 4; E87.1 Hypo-osmolality and hyponatremia; I13.2 Hypertensive heart and chronic kidney disease with heart failure and with stage 5 chronic kidney disease, or end stage renal disease; I50.30 Unspecified diastolic (congestive) heart failure; J91.8 Pleural effusion in other conditions classified elsewhere; N18.6 End stage renal disease; N13.6 Pyonephrosis; Z20.822 Contact with and (suspected) exposure to COVID-19; D50.9 Iron deficiency anemia, unspecified; E16.2 Hypoglycemia, unspecified; E78.5 Hyperlipidemia, unspecified; E83.51 Hypocalcemia; K72.90 Hepatic failure, unspecified without coma; D69.59 Other secondary thrombocytopenia; E78.00 Pure hypercholesterolemia, unspecified; Z99.2 Dependence on renal dialysis; N40.0 Benign prostatic hyperplasia without lower urinary tract symptoms; F03.90 Unspecified dementia, unspecified severity, without behavioral disturbance, psychotic disturbance, mood disturbance, and anxiety; Z68.27 Body mass index [BMI] 27.0-27.9, adult; D63.1 Anemia in chronic kidney disease
CPT/HCPCS: 36415; 36558; 70450; 71045; 71250; 74176; 76775; 77001; 78707; 80048; 80053; 80069; 81001; 82105; 82140; 82270; 82306; 82378; 82550; 82570; 82607; 82668; 82728; 82746; 82962; 83516; 83540; 83550; 83605; 83615; 83735; 83880; 83935; 83970; 84100; 84154; 84156; 84300; 84439; 84443; 84484; 84550; 85025; 85045; 85610; 85652; 85730; 86225; 86235; 86301; 86850; 86900; 86901; 86920; 87040; 87076; 87077; 87086; 87088; 87186; 87205; 87340; 90935; 93005; 93306; 96365; 96367; 96375; 97110; 97116; 97163; 97530; 99152; 99291; C9113; G0378; J0696; J1642; J2250; J2405; J2543; J3490; P9047

== ENCOUNTER 2022-05-17 23:44 | Inpatient (IN) | payer MEDICARE, OTHER ==
[~2022-05-17] VITALS: Ht 185.4 cm; Wt 73.5 kg
[~2022-05-17 23:44] MED LIST: FERRTAB18 OR; LOP2C PO; SACC250C PO
[2022-05-18 01:46] LABS: Basophils # (auto) 0.1 10 ^3/uL (0-0.2); Basophils % (auto) 0.9 % (0.0-2.0); Eosinophils # (auto) 0 10 ^3/uL (0-0.8); Eosinophils % (auto) 0.2 % (0.0-7.0); Hematocrit 28.1 % (41.0-53.0); Lymphocytes # (auto) 2.2 10 ^3/uL (0.4-5.4); Lymphocytes % (auto) 18.8 % (10.0-50.0); Mean Corpuscular Hemoglobin 30.7 pg (28.0-32.0); Mean Corpuscular Hgb Conc. 32.1 g/dL (32.0-36.0); Mean Corpuscular Volume 95.8 fL (80.0-100.0); Monocytes # (auto) 0.6 10 ^3/uL (0-1.3); Monocytes % (auto) 5.4 % (0.0-12.0); Neutrophils # (auto) 8.6 10 ^3/uL (1.6-8.6); Neutrophils % (auto) 74.7 % (37.0-80.0); Red Blood Cells 2.93 10^6/uL (4.5-5.90); White Blood Cell 11.5 10^3/uL (4.4-10.8)
[2022-05-18 01:58] LABS: Red Cell Distribution Width 20.4 % (11.8-14.3)
[2022-05-18 02:05] LABS: Albumin 2.6 g/dL (3.4-5.0); BUN/Creatinine Ratio 7.7; Calcium 7.7 mg/dL (8.5-10.1); Magnesium 1.9 mg/dL (1.6-2.6); Potassium 4.1 mmol/L (3.5-5.1)
[2022-05-18 02:08] LABS: Bilirubin, Total 0.7 mg/dL (0.2-1.0); Total Protein 5.3 g/dL (6.4-8.2)
[2022-05-18 02:30] LABS: CRP High Sensitivity 2.44 mg/dL (< 0.3)
[2022-05-18] MEDS ORDERED: ACETAMINOPHEN 325 MG TAB PO ONE (03:15)
[2022-05-18] MEDS ORDERED: SODIUM CHLORIDE 0.9% 500 ML IV ONE (06:30)
[2022-05-18] MEDS ORDERED: VANCOMYCIN 1GM/250ML 250 ML IV ONE (06:30)
[2022-05-18] MEDS ORDERED: DOCUSATE SOD 100 MG CAP PO PRN (10:30)
[2022-05-18] MEDS ORDERED: ACETAMINOPHEN 325 MG TAB PO PRN (10:30)
[2022-05-18] MEDS ORDERED: ONDANSETRON HCL 4 MG/2 ML VIAL IV PRN (10:30)
[2022-05-18] MEDS ORDERED: MORPHINE SULFATE INJ 2 MG/ml SYRG IV PRN (10:30)
[2022-05-18] MEDS: ENOXAPARIN SOD 30 MG/0.3 ML SYRINGE SC SCH (11:11)
[2022-05-18] MEDS: PIPERACILLIN-TAZOB 2.25GM 50 ML IV SCH ×2 (11:33→19:53)
[2022-05-18 11:56] LABS: Urine Bacteria MANY /hpf (None Seen); Urine Blood 3+ /uL (Negative); Urine Specific Gravity 1.012 (1.001-1.035); Urine WBC 54 /hpf (0 - 3)
[2022-05-18] MEDS: metroNIDAZOLE 500MG/100ML 100 ML IV SCH ×2 (14:18→23:05)
[2022-05-18] MEDS: VANCOMYCIN HCL 500MG/5ML ORAL SOL PO SCH ×2 (18:06→22:00)
[2022-05-18] MEDS: HYDROcodone-ACET 5/325MG TAB PO PRN (19:57)
[2022-05-18 23:53] VITALS: BP 141/67
[2022-05-19] MEDS ORDERED: CARV12.544 PO (02:44)
[2022-05-19] MEDS ORDERED: TAMS0.4C36 PO (02:44)
[2022-05-19] MEDS ORDERED: ASPI-543 PO (02:44)
[2022-05-19] MEDS ORDERED: LEVO50TA7 PO (02:44)
[2022-05-19] MEDS ORDERED: FERR-20 PO (02:44)
[2022-05-19] MEDS ORDERED: TRAZ50TA2 PO (02:44)
[2022-05-19] MEDS: PIPERACILLIN-TAZOB 2.25GM 50 ML IV SCH ×3 (03:14→19:12)
[2022-05-19 05:00] VITALS: BP 138/62
[2022-05-19] MEDS: VANCOMYCIN HCL 500MG/5ML ORAL SOL PO SCH ×4 (06:00→21:50)
[2022-05-19] MEDS: metroNIDAZOLE 500MG/100ML 100 ML IV SCH ×3 (06:15→21:47)
[2022-05-19 06:50] LABS: Basophils # (auto) 0.1 10 ^3/uL (0-0.2); Basophils % (auto) 1.3 % (0.0-2.0); Eosinophils # (auto) 0.4 10 ^3/uL (0-0.8); Hemoglobin 8.5 g/dL (13.5-17.5); Lymphocytes # (auto) 1.3 10 ^3/uL (0.4-5.4); Lymphocytes % (auto) 24.1 % (10.0-50.0); Mean Corpuscular Hemoglobin 30.5 pg (28.0-32.0); Mean Corpuscular Hgb Conc. 32.7 g/dL (32.0-36.0); Mean Corpuscular Volume 93.4 fL (80.0-100.0); Monocytes # (auto) 0.4 10 ^3/uL (0-1.3); Monocytes % (auto) 6.6 % (0.0-12.0); Neutrophils # (auto) 3.4 10 ^3/uL (1.6-8.6); Nucleated Red Blood Cells % 0.1 %; Red Blood Cells 2.78 10^6/uL (4.5-5.90); White Blood Cell 5.6 10^3/uL (4.4-10.8)
[2022-05-19 07:04] LABS: Potassium 3.5 mmol/L (3.5-5.1)
[2022-05-19 07:13] LABS: BUN/Creatinine Ratio 8.8; Bilirubin, Total 0.4 mg/dL (0.2-1.0); Calcium 6.9 mg/dL (8.5-10.1); Total Protein 4.1 g/dL (6.4-8.2)
[2022-05-19] MEDS ORDERED: SODIUM CHL 0.9% 1000 ML BAG XX ONE (07:15)
[2022-05-19 09:00] VITALS: BP 138/71
[2022-05-19] MEDS: ENOXAPARIN SOD 30 MG/0.3 ML SYRINGE SC SCH (11:47)
[2022-05-19] MEDS ORDERED: CATHFLO ACTIVASE (ALTEPLASE) 2 MG VIAL IV ONE (12:45)
[2022-05-19 13:20] VITALS: BP_SYST 115; BP_SYST 117; BP_DIAS 58; BP_DIAS 77
[2022-05-19 16:47] VITALS: BP 97/61
[2022-05-19] MEDS: SODIUM CHLORIDE 0.9% 1,000 ML IV SCH ×2 (17:02→20:45)
[2022-05-19] MEDS: HYDROcodone-ACET 5/325MG TAB PO PRN (19:03)
[2022-05-19] MEDS ORDERED: EPOETIN ALFA-EPBX 10,000 UNIT/1ML VIAL SC ONE (21:00)
[2022-05-19] MEDS ORDERED: LORazepam 2MG/ML-1ML VIAL IV PRN (21:00)
[2022-05-19 21:27] LABS: Cholesterol 89 mg/dL (< 200)
[2022-05-19 21:30] LABS: HDL Cholesterol 26 mg/dL (40-59); LDL Cholesterol 50 mg/dL (< 100); Triglycerides 75 mg/dL (< 150)
[2022-05-19] MEDS: LINEZOLID 600MG/300ML 300 ML IV SCH (21:50)
[2022-05-19 22:00] VITALS: BP 156/66
[2022-05-19] MEDS ORDERED: ATORVASTATIN 20 MG TAB PO SCH (22:00)
[2022-05-20] VITALS (7 sets, daily range): BP systolic 137–165; BP diastolic 49–71
[2022-05-20] MEDS: PIPERACILLIN-TAZOB 2.25GM 50 ML IV SCH ×2 (02:29→18:37)
[2022-05-20] MEDS: SODIUM CHLORIDE 0.9% 1,000 ML IV SCH ×3 (04:45→20:21)
[2022-05-20] MEDS: metroNIDAZOLE 500MG/100ML 100 ML IV SCH ×2 (05:28→16:54)
[2022-05-20] MEDS: VANCOMYCIN HCL 500MG/5ML ORAL SOL PO SCH ×4 (05:29→22:02)
[2022-05-20] MEDS: LINEZOLID 600MG/300ML 300 ML IV SCH ×2 (11:44→22:01)
[2022-05-20] MEDS: ASPirin 81 mg TAB PO SCH (11:44)
[2022-05-20] MEDS: HYDROcodone-ACET 5/325MG TAB PO PRN (18:38)
[2022-05-21] MEDS: metroNIDAZOLE 500MG/100ML 100 ML IV SCH ×3 (00:13→16:29)
[2022-05-21] MEDS: PIPERACILLIN-TAZOB 2.25GM 50 ML IV SCH ×3 (01:32→19:04)
[2022-05-21] MEDS: SODIUM CHLORIDE 0.9% 1,000 ML IV SCH ×3 (04:45→20:45)
[2022-05-21 05:00] VITALS: BP 149/64
[2022-05-21] MEDS: VANCOMYCIN HCL 500MG/5ML ORAL SOL PO SCH ×4 (05:31→21:59)
[2022-05-21 08:00] VITALS: BP 143/48
[2022-05-21] MEDS: HYDROcodone-ACET 5/325MG TAB PO PRN (08:29)
[2022-05-21 08:35] VITALS: BP 143/48
[2022-05-21] MEDS: ENOXAPARIN SOD 30 MG/0.3 ML SYRINGE SC SCH (09:49)
[2022-05-21] MEDS: LINEZOLID 600MG/300ML 300 ML IV SCH ×2 (09:50→21:58)
[2022-05-21] MEDS: ASPirin 81 mg TAB PO SCH (09:50)
[2022-05-21 12:49] VITALS: BP 161/71
[2022-05-21] MEDS: cloNIDine HCL 0.1 MG TAB PO PRN (14:27)
[2022-05-21 16:17] VITALS: BP 147/62
[2022-05-21 18:29] LABS: Mean Corpuscular Hemoglobin 30.1 pg (28.0-32.0); Mean Corpuscular Hgb Conc. 32.3 g/dL (32.0-36.0)
[2022-05-21 18:30] LABS: Hematocrit 26.2 % (41.0-53.0); Hemoglobin 8.5 g/dL (13.5-17.5); Mean Corpuscular Volume 93.1 fL (80.0-100.0); Red Blood Cells 2.82 10^6/uL (4.5-5.90); Red Cell Distribution Width 18.8 % (11.8-14.3); White Blood Cell 4.6 10^3/uL (4.4-10.8)
[2022-05-21 18:34] LABS: BUN/Creatinine Ratio 9.2; Basophils % (manual) 0 (0.0-2.0); Blast Cells 0; Calcium 6.6 mg/dL (8.5-10.1); Metamyelocytes % 0; Myelocytes % 0; Promyelocytes % 0; Reactive Lymphocytes 0
[2022-05-21 18:58] LABS: Band Neutrophils % (manual) 1; Eosinophils % (manual) 7 (0-7); Lymphocytes % (manual) 65 (10.0-50.0); Monocytes % (manual) 7 (0-12)
[2022-05-21 19:33] LABS: Potassium 2.9 mmol/L (3.5-5.1)
[2022-05-21 22:39] VITALS: BP 149/71
[2022-05-22] MEDS ORDERED: POTASSIUM EFFERVESENT TAB 25 MEQ PO ONE (00:15)
[2022-05-22] MEDS: metroNIDAZOLE 500MG/100ML 100 ML IV SCH ×3 (00:45→16:20)
[2022-05-22] MEDS: PIPERACILLIN-TAZOB 2.25GM 50 ML IV SCH ×3 (02:40→18:16)
[2022-05-22 05:00] VITALS: BP 152/78
[2022-05-22] MEDS: SODIUM CHLORIDE 0.9% 1,000 ML IV SCH ×3 (05:23→20:45)
[2022-05-22] MEDS: VANCOMYCIN HCL 500MG/5ML ORAL SOL PO SCH ×4 (05:23→22:48)
[2022-05-22 08:00] VITALS: BP 161/57
[2022-05-22 09:26] VITALS: BP 161/57
[2022-05-22] MEDS: ASPirin 81 mg TAB PO SCH (10:57)
[2022-05-22] MEDS: LINEZOLID 600MG/300ML 300 ML IV SCH ×2 (10:58→22:48)
[2022-05-22] MEDS: ENOXAPARIN SOD 30 MG/0.3 ML SYRINGE SC SCH (10:58)
[2022-05-22 12:46] VITALS: BP 161/73
[2022-05-22 16:19] VITALS: BP 150/66
[2022-05-22] MEDS: HYDROcodone-ACET 5/325MG TAB PO PRN (16:26)
[2022-05-22 22:00] VITALS: BP 176/81
[2022-05-23] MEDS: metroNIDAZOLE 500MG/100ML 100 ML IV SCH ×2 (01:11→08:18)
[2022-05-23] MEDS: cloNIDine HCL 0.1 MG TAB PO PRN (01:11)
[2022-05-23] MEDS: PIPERACILLIN-TAZOB 2.25GM 50 ML IV SCH ×3 (02:37→21:25)
[2022-05-23] MEDS: SODIUM CHLORIDE 0.9% 1,000 ML IV SCH ×3 (04:45→20:45)
[2022-05-23] MEDS: VANCOMYCIN HCL 500MG/5ML ORAL SOL PO SCH ×4 (05:39→21:26)
[2022-05-23 05:52] VITALS: BP 148/75
[2022-05-23 06:33] LABS: White Blood Cell 3.2 10^3/uL (4.4-10.8)
[2022-05-23 06:35] LABS: Hematocrit 25.1 % (41.0-53.0); Hemoglobin 8.3 g/dL (13.5-17.5); Mean Corpuscular Hemoglobin 30.7 pg (28.0-32.0); Mean Corpuscular Hgb Conc. 33.2 g/dL (32.0-36.0); Mean Corpuscular Volume 92.5 fL (80.0-100.0); Red Blood Cells 2.72 10^6/uL (4.5-5.90); Red Cell Distribution Width 18.3 % (11.8-14.3)
[2022-05-23 06:39] LABS: Band Neutrophils % (manual) 0; Blast Cells 0; Metamyelocytes % 0; Myelocytes % 0; Promyelocytes % 0; Reactive Lymphocytes 0
[2022-05-23 06:48] LABS: INR 1.2 (0.9-1.15)
[2022-05-23 06:51] LABS: Albumin 1.8 g/dL (3.4-5.0); Calcium 6.8 mg/dL (8.5-10.1); Potassium 3.4 mmol/L (3.5-5.1)
[2022-05-23 06:55] LABS: Bilirubin, Total 0.3 mg/dL (0.2-1.0)
[2022-05-23 06:57] LABS: BUN/Creatinine Ratio 8.7
[2022-05-23 08:00] VITALS: BP 155/65
[2022-05-23 08:48] LABS: Basophils % (manual) 4 (0.0-2.0); Eosinophils % (manual) 9 (0-7); Lymphocytes % (manual) 69 (10.0-50.0); Monocytes % (manual) 6 (0-12)
[2022-05-23 09:00] VITALS: BP 155/65
[2022-05-23] MEDS: LINEZOLID 600MG/300ML 300 ML IV SCH ×2 (10:26→21:25)
[2022-05-23] MEDS: ASPirin 81 mg TAB PO SCH (10:27)
[2022-05-23] MEDS: ENOXAPARIN SOD 30 MG/0.3 ML SYRINGE SC SCH (10:27)
[2022-05-23] MEDS ORDERED: SODIUM CHL 0.9% 1000 ML BAG XX ONE (11:15)
[2022-05-23 13:00] VITALS: BP 156/80
[2022-05-23 17:00] VITALS: BP 176/78
[2022-05-23] MEDS ORDERED: LIDOCAINE 1% (LOCAL ANESTH.) PF 5ml SDV ID ONE (17:30)
[2022-05-23] MEDS ORDERED: EPOETIN ALFA-EPBX 10,000 UNIT/1ML VIAL SC ONE (21:00)
[2022-05-23] MEDS: SODIUM CHLOR 0.9% PF (SALINE LOCK) 10ML VIAL/SYR IV SCH (21:25)
[2022-05-23] MEDS: HYDROcodone-ACET 5/325MG TAB PO PRN (21:26)
[2022-05-23 22:00] VITALS: BP 151/64
[2022-05-24 05:00] VITALS: BP 171/73
[2022-05-24] MEDS: SODIUM CHLORIDE 0.9% 1,000 ML IV SCH ×2 (05:06→12:45)
[2022-05-24] MEDS: VANCOMYCIN HCL 500MG/5ML ORAL SOL PO SCH ×3 (05:06→18:00)
[2022-05-24] MEDS: PIPERACILLIN-TAZOB 2.25GM 50 ML IV SCH ×2 (05:06→12:49)
[2022-05-24] MEDS: cloNIDine HCL 0.1 MG TAB PO PRN ×2 (05:06→17:48)
[2022-05-24 09:00] VITALS: BP 141/45
[2022-05-24] MEDS: LINEZOLID 600MG/300ML 300 ML IV SCH (09:59)
[2022-05-24] MEDS: ENOXAPARIN SOD 30 MG/0.3 ML SYRINGE SC SCH (10:01)
[2022-05-24] MEDS: ASPirin 81 mg TAB PO SCH (10:01)
[2022-05-24] MEDS: SODIUM CHLOR 0.9% PF (SALINE LOCK) 10ML VIAL/SYR IV SCH (10:07)
[2022-05-24 13:00] VITALS: BP 165/69
[2022-05-24 17:00] VITALS: BP 183/82
[2022-05-24 18:40] VITALS: BP 140/71
[2022-05-25] MEDS ORDERED: SODIUM CHL 0.9% 1000 ML BAG XX ONE (07:00)
[2022-05-25] MEDS ORDERED: EPOETIN ALFA-EPBX 10,000 UNIT/1ML VIAL SC ONE (21:00)
== END 2022-05-24 18:50 | DRG 871 ==
LOC: EDBD 23:44 → ER 23:47 → TELE 05-18 10:32 → TELE-WESTW 05-18 20:50
PROVIDERS: ADMIT Internal Medicine; ATTEND Family Medicine
PROC: 5A1D70Z Performance of Urinary Filtration, Intermittent, Less than 6 Hours Per Day (ICD-10-PCS; principal; 2022-05-19)
PROC: 5A1D70Z Performance of Urinary Filtration, Intermittent, Less than 6 Hours Per Day (ICD-10-PCS; 2022-05-23)
DX: A41.9 Sepsis, unspecified organism (principal); E43 Unspecified severe protein-calorie malnutrition; N18.6 End stage renal disease; A04.72 Enterocolitis due to Clostridium difficile, not specified as recurrent; N39.0 Urinary tract infection, site not specified; N17.9 Acute kidney failure, unspecified; I13.2 Hypertensive heart and chronic kidney disease with heart failure and with stage 5 chronic kidney disease, or end stage renal disease; Z16.21 Resistance to vancomycin; Z20.822 Contact with and (suspected) exposure to COVID-19; D63.1 Anemia in chronic kidney disease; G58.9 Mononeuropathy, unspecified; B95.2 Enterococcus as the cause of diseases classified elsewhere; E03.9 Hypothyroidism, unspecified; E78.00 Pure hypercholesterolemia, unspecified; E88.09 Other disorders of plasma-protein metabolism, not elsewhere classified; I50.9 Heart failure, unspecified; M89.8X9 Other specified disorders of bone, unspecified site; R32 Unspecified urinary incontinence; Z79.82 Long term (current) use of aspirin; S50.812A Abrasion of left forearm, initial encounter; W18.39XA Other fall on same level, initial encounter; Y93.89 Activity, other specified; Y92.89 Other specified places as the place of occurrence of the external cause; Y99.8 Other external cause status; Z86.73 Personal history of transient ischemic attack (TIA), and cerebral infarction without residual deficits; Z79.899 Other long term (current) drug therapy; Z99.2 Dependence on renal dialysis; Z68.21 Body mass index [BMI] 21.0-21.9, adult
CPT/HCPCS: 36415; 36569; 70551; 71045; 72141; 73090; 74176; 80048; 80053; 80061; 81001; 82140; 83605; 83735; 84484; 85007; 85025; 85027; 85610; 86141; 87040; 87045; 87081; 87086; 87088; 87177; 87186; 87427; 87493; 90935; 93005; 93886; 96365; 96366; 97110; 97163; 97530; G0378; J1642; J2543; J3490

== ENCOUNTER 2022-06-17 15:16 | Inpatient (IN) | payer MEDICARE, OTHER ==
[~2022-06-17] VITALS: Ht 185.4 cm; Wt 75.6 kg
[~2022-06-17 15:16] MED LIST changes: +ASPI-543 PO; +CARV12.544 PO; +FERR-20 PO; +LEVO50TA7 PO; +TAMS0.4C36 PO; +TRAZ50TA2 PO
[2022-06-17 17:07] LABS: Basophils # (auto) 0.1 10 ^3/uL (0-0.2); Basophils % (auto) 0.5 % (0.0-2.0); Eosinophils # (auto) 0 10 ^3/uL (0-0.8); Hemoglobin 8.2 g/dL (13.5-17.5); Monocytes # (auto) 0.8 10 ^3/uL (0-1.3)
[2022-06-17 17:09] LABS: Hematocrit 24.9 % (41.0-53.0); Lymphocytes # (auto) 1.9 10 ^3/uL (0.4-5.4); Lymphocytes % (auto) 12.5 % (10.0-50.0); Mean Corpuscular Hgb Conc. 32.7 g/dL (32.0-36.0); Mean Corpuscular Volume 91.7 fL (80.0-100.0); Monocytes % (auto) 5.3 % (0.0-12.0); Neutrophils # (auto) 12.3 10 ^3/uL (1.6-8.6); Neutrophils % (auto) 81.7 % (37.0-80.0); Red Blood Cells 2.72 10^6/uL (4.5-5.90); Red Cell Distribution Width 19.5 % (11.8-14.3); White Blood Cell 15.1 10^3/uL (4.4-10.8)
[2022-06-17 17:27] LABS: Albumin 2.3 g/dL (3.4-5.0); Calcium 7.5 mg/dL (8.5-10.1); Potassium 3.3 mmol/L (3.5-5.1)
[2022-06-17 17:30] LABS: Bilirubin, Total 0.6 mg/dL (0.2-1.0); Total Protein 5.4 g/dL (6.4-8.2)
[2022-06-17 18:39] LABS: Urine Bacteria NONE SEEN /hpf (None Seen); Urine Blood 3+ /uL (Negative); Urine Specific Gravity 1.015 (1.001-1.035); Urine WBC 42 /hpf (0 - 3)
[2022-06-17] MEDS ORDERED: cefTRIAXone 1GM/50ML D5W 50 ML IV ONE (20:15)
[2022-06-17] MEDS ORDERED: SODIUM CHLORIDE 0.9% 2,000 ML IV ONE (20:15)
[2022-06-17] MEDS ORDERED: levoFLOXacin 750MG 150 ML IV ONE (20:15)
[2022-06-17] MEDS ORDERED: DOCUSATE SOD 100 MG CAP PO PRN (22:45)
[2022-06-17] MEDS ORDERED: ALBUMIN 25% 100 ML IV ONE (22:45)
[2022-06-17] MEDS ORDERED: ONDANSETRON HCL 4 MG/2 ML VIAL IV PRN (22:45)
[2022-06-17] MEDS ORDERED: HYDROcodone-ACET 5/325MG TAB PO PRN (22:45)
[2022-06-17] MEDS ORDERED: MORPHINE SULFATE INJ 2 MG/ml SYRG IV PRN (22:45)
[2022-06-17] MEDS ORDERED: ACETAMINOPHEN 325 MG TAB PO PRN (22:45)
[2022-06-17] MEDS ORDERED: NITROGLYCERIN 0.4 MG SL TAB SL PRN (22:45)
[2022-06-18 05:03] LABS: Eosinophils # (auto) 0.2 10 ^3/uL (0-0.8); Eosinophils % (auto) 1.4 % (0.0-7.0); Lymphocytes # (auto) 1.5 10 ^3/uL (0.4-5.4); Monocytes # (auto) 0.5 10 ^3/uL (0-1.3); Neutrophils # (auto) 9.6 10 ^3/uL (1.6-8.6)
[2022-06-18 05:05] LABS: Basophils # (auto) 0 10 ^3/uL (0-0.2); Basophils % (auto) 0.4 % (0.0-2.0); Hematocrit 23.7 % (41.0-53.0); Hemoglobin 8.2 g/dL (13.5-17.5); Lymphocytes % (auto) 12.3 % (10.0-50.0); Mean Corpuscular Hemoglobin 31.8 pg (28.0-32.0); Mean Corpuscular Hgb Conc. 34.4 g/dL (32.0-36.0); Mean Corpuscular Volume 92.3 fL (80.0-100.0); Monocytes % (auto) 4.6 % (0.0-12.0); Neutrophils % (auto) 81.3 % (37.0-80.0); Red Blood Cells 2.57 10^6/uL (4.5-5.90); Red Cell Distribution Width 19.7 % (11.8-14.3); White Blood Cell 11.8 10^3/uL (4.4-10.8)
[2022-06-18 05:24] LABS: Albumin 2.1 g/dL (3.4-5.0); Calcium 7.5 mg/dL (8.5-10.1); Potassium 3.4 mmol/L (3.5-5.1)
[2022-06-18 05:27] LABS: BUN/Creatinine Ratio 10.3; Bilirubin, Total 0.3 mg/dL (0.2-1.0); Total Protein 4.8 g/dL (6.4-8.2)
[2022-06-18] MEDS: SODIUM CHLOR 0.9% PF (SALINE LOCK) 10ML VIAL/SYR IV SCH ×3 (06:38→22:16)
[2022-06-18] MEDS: SEVELAMER 800 MG TAB PO SCH ×3 (08:37→18:21)
[2022-06-18] MEDS ORDERED: cefTRIAXone 1GM/50ML D5W 50 ML IV SCH (09:00)
[2022-06-18] MEDS ORDERED: POTASSIUM CHL 20 Meq TABLET PO ONE (10:00)
[2022-06-18] MEDS ORDERED: AZITHROMYCIN 500MG/ 250ML 250 ML IV SCH (10:00)
[2022-06-18] MEDS: FAMOTIDINE (10MG/ML) 2ML VL IV SCH (10:49)
[2022-06-18] MEDS: CARVEDILOL 12.5 MG TAB PO SCH ×2 (10:50→22:14)
[2022-06-18] MEDS: B-COMPLEX W/ C & FOLIC ACID(NEPHROVITE TAB) PO SCH (10:50)
[2022-06-18] MEDS: HEPARIN SODIUM (PORCINE) 5000 UNITS/ML 1ML VIAL SC SCH ×2 (10:52→22:31)
[2022-06-18] MEDS: LINEZOLID 600MG/300ML 300 ML IV SCH ×2 (10:53→22:15)
[2022-06-18] MEDS: FUROSEMIDE 40 MG/4 ML VIAL IV SCH (10:53)
[2022-06-18] MEDS ORDERED: VANCOMYCIN HCL 125MG/5ML ORAL SOL GT SCH (12:00)
[2022-06-18 12:34] LABS: Protein, Urine 635.3 mg/dL (0.0-11.9)
[2022-06-18] MEDS: VANCOMYCIN HCL 125MG/5ML ORAL SOL PO SCH ×2 (18:20→22:00)
[2022-06-18 22:00] VITALS: BP 165/66
[2022-06-19] VITALS (7 sets, daily range): BP systolic 108–162; BP diastolic 53–61
[2022-06-19] MEDS: SODIUM CHLOR 0.9% PF (SALINE LOCK) 10ML VIAL/SYR IV SCH ×3 (05:22→21:15)
[2022-06-19] MEDS: VANCOMYCIN HCL 125MG/5ML ORAL SOL PO SCH ×5 (05:23→21:15)
[2022-06-19 08:16] LABS: Eosinophils # (auto) 0.5 10 ^3/uL (0-0.8); Hemoglobin 7.9 g/dL (13.5-17.5); Monocytes # (auto) 0.4 10 ^3/uL (0-1.3)
[2022-06-19 08:17] LABS: Basophils # (auto) 0.1 10 ^3/uL (0-0.2); Basophils % (auto) 0.9 % (0.0-2.0); Hematocrit 23.5 % (41.0-53.0); Lymphocytes # (auto) 1.8 10 ^3/uL (0.4-5.4); Lymphocytes % (auto) 26.7 % (10.0-50.0); Mean Corpuscular Hemoglobin 30.9 pg (28.0-32.0); Mean Corpuscular Hgb Conc. 33.7 g/dL (32.0-36.0); Mean Corpuscular Volume 91.7 fL (80.0-100.0); Neutrophils # (auto) 4.1 10 ^3/uL (1.6-8.6); Neutrophils % (auto) 59.4 % (37.0-80.0); Nucleated Red Blood Cells % 0.1 %; Red Blood Cells 2.56 10^6/uL (4.5-5.90); Red Cell Distribution Width 19.1 % (11.8-14.3); White Blood Cell 6.9 10^3/uL (4.4-10.8)
[2022-06-19] MEDS: CARVEDILOL 12.5 MG TAB PO SCH ×2 (08:38→21:14)
[2022-06-19] MEDS: B-COMPLEX W/ C & FOLIC ACID(NEPHROVITE TAB) PO SCH (08:38)
[2022-06-19] MEDS: SEVELAMER 800 MG TAB PO SCH ×3 (08:39→16:52)
[2022-06-19 08:40] LABS: BUN/Creatinine Ratio 10.1; Calcium 7.4 mg/dL (8.5-10.1); Potassium 3.4 mmol/L (3.5-5.1)
[2022-06-19] MEDS: FAMOTIDINE (10MG/ML) 2ML VL IV SCH (08:40)
[2022-06-19] MEDS: FUROSEMIDE 40 MG/4 ML VIAL IV SCH (08:41)
[2022-06-19] MEDS: LINEZOLID 600MG/300ML 300 ML IV SCH ×2 (08:42→21:15)
[2022-06-19] MEDS: HEPARIN SODIUM (PORCINE) 5000 UNITS/ML 1ML VIAL SC SCH ×2 (08:48→21:22)
[2022-06-19] MEDS: metroNIDAZOLE 500MG/100ML 100 ML IV SCH ×2 (13:45→21:14)
[2022-06-19] MEDS: hydrALAZINE HCL 20 MG/ML VL IV PRN ×2 (13:45→23:44)
[2022-06-19] MEDS: FLORASTOR (S. BOULARDII) 250 MG CAP PO SCH (21:12)
[2022-06-20 05:00] VITALS: BP 169/70
[2022-06-20] MEDS: metroNIDAZOLE 500MG/100ML 100 ML IV SCH ×3 (05:37→21:56)
[2022-06-20] MEDS: SODIUM CHLOR 0.9% PF (SALINE LOCK) 10ML VIAL/SYR IV SCH ×3 (05:37→22:09)
[2022-06-20] MEDS: VANCOMYCIN HCL 125MG/5ML ORAL SOL PO SCH ×4 (05:38→21:53)
[2022-06-20 06:19] LABS: Basophils # (auto) 0.1 10 ^3/uL (0-0.2); Eosinophils # (auto) 0.4 10 ^3/uL (0-0.8); Hematocrit 24.3 % (41.0-53.0); Monocytes # (auto) 0.4 10 ^3/uL (0-1.3); Red Blood Cells 2.67 10^6/uL (4.5-5.90)
[2022-06-20 06:22] LABS: Eosinophils % (auto) 6.5 % (0.0-7.0); Hemoglobin 8.2 g/dL (13.5-17.5); Lymphocytes # (auto) 1.7 10 ^3/uL (0.4-5.4); Lymphocytes % (auto) 30.3 % (10.0-50.0); Mean Corpuscular Hemoglobin 30.5 pg (28.0-32.0); Mean Corpuscular Hgb Conc. 33.6 g/dL (32.0-36.0); Mean Corpuscular Volume 90.9 fL (80.0-100.0); Monocytes % (auto) 6.8 % (0.0-12.0); Neutrophils # (auto) 3.2 10 ^3/uL (1.6-8.6); Neutrophils % (auto) 55.4 % (37.0-80.0); Red Cell Distribution Width 19.1 % (11.8-14.3); White Blood Cell 5.7 10^3/uL (4.4-10.8)
[2022-06-20 06:36] LABS: Albumin 2.3 g/dL (3.4-5.0); Calcium 7.4 mg/dL (8.5-10.1); Potassium 3.2 mmol/L (3.5-5.1)
[2022-06-20 06:41] LABS: BUN/Creatinine Ratio 9.7; Bilirubin, Total 0.3 mg/dL (0.2-1.0); Total Protein 4.7 g/dL (6.4-8.2)
[2022-06-20 08:10] VITALS: BP 144/59
[2022-06-20] MEDS: FLORASTOR (S. BOULARDII) 250 MG CAP PO SCH ×2 (08:52→21:52)
[2022-06-20] MEDS: SEVELAMER 800 MG TAB PO SCH ×3 (08:52→17:53)
[2022-06-20] MEDS: B-COMPLEX W/ C & FOLIC ACID(NEPHROVITE TAB) PO SCH (08:52)
[2022-06-20] MEDS: CARVEDILOL 12.5 MG TAB PO SCH ×2 (08:54→21:52)
[2022-06-20] MEDS: FUROSEMIDE 40 MG/4 ML VIAL IV SCH (08:55)
[2022-06-20] MEDS: LINEZOLID 600MG/300ML 300 ML IV SCH (08:57)
[2022-06-20 09:00] VITALS: BP 144/59
[2022-06-20] MEDS: HEPARIN SODIUM (PORCINE) 5000 UNITS/ML 1ML VIAL SC SCH ×2 (09:08→22:03)
[2022-06-20] MEDS ORDERED: ZOLPIDEM TARTRATE 5 MG TAB PO PRN (09:30)
[2022-06-20] MEDS: DIFICID 200 MG PO SCH ×2 (10:00→22:00)
[2022-06-20] MEDS: POTASSIUM EFFERVESENT TAB 25 MEQ PO ONE ×2 (10:45→12:28)
[2022-06-20 12:29] VITALS: BP 136/58
[2022-06-20] MEDS ORDERED: POTASSIUM EFFERVESENT TAB 25 MEQ PO ONE (12:45)
[2022-06-20 17:00] VITALS: BP 148/59
[2022-06-20] MEDS ORDERED: EPOETIN ALFA-EPBX 4,000 UNIT/ML VIAL SC ONE (21:00)
[2022-06-20 22:00] VITALS: BP 159/61
[2022-06-21 05:00] VITALS: BP 126/76
[2022-06-21] MEDS: SODIUM CHLOR 0.9% PF (SALINE LOCK) 10ML VIAL/SYR IV SCH ×3 (06:14→22:20)
[2022-06-21] MEDS: VANCOMYCIN HCL 125MG/5ML ORAL SOL PO SCH ×4 (06:15→22:21)
[2022-06-21] MEDS: metroNIDAZOLE 500MG/100ML 100 ML IV SCH ×3 (06:15→22:19)
[2022-06-21 08:50] VITALS: BP 153/62
[2022-06-21] MEDS: B-COMPLEX W/ C & FOLIC ACID(NEPHROVITE TAB) PO SCH (09:33)
[2022-06-21] MEDS: SEVELAMER 800 MG TAB PO SCH ×3 (09:33→17:48)
[2022-06-21] MEDS: FUROSEMIDE 40 MG/4 ML VIAL IV SCH (09:34)
[2022-06-21] MEDS: FLORASTOR (S. BOULARDII) 250 MG CAP PO SCH ×2 (09:34→22:19)
[2022-06-21] MEDS: CARVEDILOL 12.5 MG TAB PO SCH ×2 (09:34→22:20)
[2022-06-21] MEDS: DIFICID 200 MG PO SCH ×2 (09:35→22:00)
[2022-06-21] MEDS ORDERED: FAMOTIDINE (10MG/ML) 2ML VL IV SCH (10:00)
[2022-06-21] MEDS: HEPARIN SODIUM (PORCINE) 5000 UNITS/ML 1ML VIAL SC SCH ×2 (12:58→22:26)
[2022-06-21 13:00] VITALS: BP 122/58
[2022-06-21 16:51] VITALS: BP 136/81
[2022-06-21 22:00] VITALS: BP 127/67
[2022-06-21] MEDS: LINEZOLID 600MG TABLET PO SCH (22:19)
[2022-06-22 05:00] VITALS: BP 150/74
[2022-06-22] MEDS: VANCOMYCIN HCL 125MG/5ML ORAL SOL PO SCH ×2 (06:16→12:04)
[2022-06-22] MEDS: SODIUM CHLOR 0.9% PF (SALINE LOCK) 10ML VIAL/SYR IV SCH ×2 (06:16→13:57)
[2022-06-22] MEDS: metroNIDAZOLE 500MG/100ML 100 ML IV SCH ×2 (06:16→13:53)
[2022-06-22 08:05] VITALS: BP 137/55
[2022-06-22] MEDS: SEVELAMER 800 MG TAB PO SCH ×2 (08:09→12:04)
[2022-06-22 09:00] VITALS: BP 137/55
[2022-06-22] MEDS: B-COMPLEX W/ C & FOLIC ACID(NEPHROVITE TAB) PO SCH (10:34)
[2022-06-22] MEDS: FLORASTOR (S. BOULARDII) 250 MG CAP PO SCH (10:34)
[2022-06-22] MEDS: HEPARIN SODIUM (PORCINE) 5000 UNITS/ML 1ML VIAL SC SCH (10:36)
[2022-06-22] MEDS: DIFICID 200 MG PO SCH (10:37)
[2022-06-22] MEDS: LINEZOLID 600MG TABLET PO SCH (12:04)
[2022-06-22 12:43] VITALS: BP 183/83
[2022-06-22] MEDS: CARVEDILOL 12.5 MG TAB PO SCH (13:53)
[2022-06-22] MEDS: FUROSEMIDE 40 MG/4 ML VIAL IV SCH (13:53)
[2022-06-22 15:26] VITALS: BP 144/63
[2022-06-22 17:00] VITALS: BP 150/72
== END 2022-06-22 16:30 | DRG 871 ==
LOC: ER 15:16 → EDBD 15:16 → TELE 22:49 → TELE-CENTR 06-18 20:49
PROVIDERS: ADMIT Nurse Practitioner Family; ATTEND Family Medicine
PROC: 5A1D70Z Performance of Urinary Filtration, Intermittent, Less than 6 Hours Per Day (ICD-10-PCS; principal; 2022-06-20)
PROC: 5A1D70Z Performance of Urinary Filtration, Intermittent, Less than 6 Hours Per Day (ICD-10-PCS; 2022-06-22)
DX: A41.89 Other specified sepsis (principal); J18.9 Pneumonia, unspecified organism; N18.6 End stage renal disease; N39.0 Urinary tract infection, site not specified; A04.72 Enterocolitis due to Clostridium difficile, not specified as recurrent; E44.0 Moderate protein-calorie malnutrition; I12.0 Hypertensive chronic kidney disease with stage 5 chronic kidney disease or end stage renal disease; Z16.21 Resistance to vancomycin; N17.9 Acute kidney failure, unspecified; R65.20 Severe sepsis without septic shock; E88.09 Other disorders of plasma-protein metabolism, not elsewhere classified; E87.6 Hypokalemia; D63.1 Anemia in chronic kidney disease; E03.9 Hypothyroidism, unspecified; E78.5 Hyperlipidemia, unspecified; Z99.2 Dependence on renal dialysis; Z68.22 Body mass index [BMI] 22.0-22.9, adult; Z86.73 Personal history of transient ischemic attack (TIA), and cerebral infarction without residual deficits
CPT/HCPCS: 36415; 71045; 76775; 80048; 80053; 81001; 82306; 82570; 83605; 83615; 83735; 83935; 83970; 84156; 84300; 84484; 85025; 86850; 86900; 86901; 87040; 87081; 87086; 87493; 90935; 93005; 96365; 96368; G0378; J0696; J1956; J3490; P9047

== ENCOUNTER 2022-07-26 18:30 | Inpatient (IN) | payer MEDICARE, MEDICAID ==
[~2022-07-26] VITALS: Ht 182.9 cm; Wt 67.8 kg
[2022-07-26 20:27] LABS: Basophils # (auto) 0 10 ^3/uL (0-0.2); Basophils % (auto) 0.5 % (0.0-2.0); Eosinophils # (auto) 0.2 10 ^3/uL (0-0.8); Eosinophils % (auto) 3.6 % (0.0-7.0); Hematocrit 26.2 % (41.0-53.0); Hemoglobin 8.6 g/dL (13.5-17.5); Lymphocytes # (auto) 1.8 10 ^3/uL (0.4-5.4); Lymphocytes % (auto) 41.4 % (10.0-50.0); Mean Corpuscular Hemoglobin 31.4 pg (28.0-32.0); Mean Corpuscular Hgb Conc. 32.9 g/dL (32.0-36.0); Mean Corpuscular Volume 95.4 fL (80.0-100.0); Monocytes # (auto) 0.5 10 ^3/uL (0-1.3); Monocytes % (auto) 12.5 % (0.0-12.0); Neutrophils # (auto) 1.8 10 ^3/uL (1.6-8.6); Nucleated Red Blood Cells % 0.1 %; Red Blood Cells 2.75 10^6/uL (4.5-5.90); White Blood Cell 4.3 10^3/uL (4.4-10.8)
[2022-07-26 20:45] LABS: Red Cell Distribution Width 21.4 % (11.8-14.3)
[2022-07-26 20:50] LABS: INR 1.02 (0.9-1.15)
[2022-07-26 20:57] LABS: Albumin 3.1 g/dL (3.4-5.0); Calcium 7.8 mg/dL (8.5-10.1); Potassium 4.2 mmol/L (3.5-5.1)
[2022-07-26 20:59] LABS: BUN/Creatinine Ratio 15.1
[2022-07-26 21:02] LABS: Bilirubin, Total 0.3 mg/dL (0.2-1.0)
[2022-07-27] MEDS ORDERED: TEMAZEPAM 15 MG CAP PO PRN (03:00)
[2022-07-27] MEDS ORDERED: ONDANSETRON HCL 4 MG/2 ML VIAL IV PRN (03:00)
[2022-07-27] MEDS ORDERED: VANCOMYCIN HCL 125MG/5ML ORAL SOL PO SCH (06:00)
[2022-07-27] MEDS: metroNIDAZOLE 500MG/100ML 100 ML IV SCH ×2 (10:59→22:34)
[2022-07-27] MEDS: ASPirin 81 mg TAB PO SCH (11:00)
[2022-07-27] MEDS: LEVOTHYROXINE SODIUM 50 MCG TAB PO SCH (11:00)
[2022-07-27] MEDS: CARVEDILOL 3.125 MG TAB PO SCH ×2 (11:02→22:35)
[2022-07-27] MEDS: VANCOMYCIN HCL 125MG/5ML ORAL SOL PO SCH ×2 (18:00→22:00)
[2022-07-27 22:00] VITALS: BP 131/52
[2022-07-27] MEDS: FLORASTOR (S. BOULARDII) 250 MG CAP PO SCH (22:34)
[2022-07-28 05:00] VITALS: BP 129/51
[2022-07-28] MEDS: VANCOMYCIN HCL 125MG/5ML ORAL SOL PO SCH (05:42)
[2022-07-28 06:22] LABS: Basophils # (auto) 0 10 ^3/uL (0-0.2); Eosinophils # (auto) 0.1 10 ^3/uL (0-0.8); Hemoglobin 8.3 g/dL (13.5-17.5); Lymphocytes # (auto) 1.4 10 ^3/uL (0.4-5.4); Neutrophils # (auto) 1.9 10 ^3/uL (1.6-8.6); Nucleated Red Blood Cells % 0.1 %
[2022-07-28] MEDS: LEVOTHYROXINE SODIUM 50 MCG TAB PO SCH (06:23)
[2022-07-28 06:25] LABS: Basophils % (auto) 0.7 % (0.0-2.0); Eosinophils % (auto) 3.6 % (0.0-7.0); Hematocrit 25.1 % (41.0-53.0); Lymphocytes % (auto) 33.6 % (10.0-50.0); Mean Corpuscular Hemoglobin 31.4 pg (28.0-32.0); Mean Corpuscular Hgb Conc. 33.1 g/dL (32.0-36.0); Monocytes # (auto) 0.6 10 ^3/uL (0-1.3); Monocytes % (auto) 15.6 % (0.0-12.0); Neutrophils % (auto) 46.5 % (37.0-80.0); Red Blood Cells 2.64 10^6/uL (4.5-5.90); White Blood Cell 4.1 10^3/uL (4.4-10.8)
[2022-07-28 06:48] LABS: Red Cell Distribution Width 20.5 % (11.8-14.3)
[2022-07-28 06:55] LABS: Albumin 2.7 g/dL (3.4-5.0); Calcium 7.8 mg/dL (8.5-10.1); Potassium 4.1 mmol/L (3.5-5.1)
[2022-07-28 06:58] LABS: BUN/Creatinine Ratio 14.1
[2022-07-28 07:00] LABS: Bilirubin, Total 0.4 mg/dL (0.2-1.0); Total Protein 5.2 g/dL (6.4-8.2)
[2022-07-28 08:51] VITALS: BP 149/61
[2022-07-28] MEDS: FLORASTOR (S. BOULARDII) 250 MG CAP PO SCH ×2 (10:15→22:26)
[2022-07-28] MEDS: metroNIDAZOLE 500MG/100ML 100 ML IV SCH (10:15)
[2022-07-28] MEDS: ASPirin 81 mg TAB PO SCH (10:16)
[2022-07-28] MEDS: CARVEDILOL 3.125 MG TAB PO SCH ×2 (10:17→22:25)
[2022-07-28 12:49] LABS: Magnesium 2.6 mg/dL (1.6-2.6); Phosphorus 5.2 mg/dL (2.5-4.90)
[2022-07-28 13:00] VITALS: BP 113/50
[2022-07-28] MEDS ORDERED: TPN PER PHARMACY 0 ML IV SCH (14:45)
[2022-07-28 16:25] VITALS: BP 137/54
[2022-07-28 22:00] VITALS: BP 123/58
[2022-07-28] MEDS: AMINO ACID INFUSION IN D10W 1,000 ML IV NR (22:25)
[2022-07-28] MEDS: PANTOPRAZOLE 40 MG TAB PO SCH (22:26)
[2022-07-29 05:00] VITALS: BP 124/54
[2022-07-29 06:38] LABS: Hemoglobin 7.7 g/dL (13.5-17.5)
[2022-07-29 06:41] LABS: Hematocrit 23.4 % (41.0-53.0)
[2022-07-29] MEDS: LEVOTHYROXINE SODIUM 50 MCG TAB PO SCH (06:53)
[2022-07-29] MEDS ORDERED: SODIUM CHL 0.9% 1000 ML BAG XX ONE (07:00)
[2022-07-29] MEDS: PANTOPRAZOLE 40 MG TAB PO SCH ×2 (08:00→21:51)
[2022-07-29 09:00] VITALS: BP 111/57
[2022-07-29] MEDS ORDERED: TPN PER PHARMACY 0 ML IV SCH (09:45)
[2022-07-29] MEDS ORDERED: FECAL MICROBIOTA TRANSPLANTATION 30mL SUSPENSION NG ONE (10:00)
[2022-07-29] MEDS: FLORASTOR (S. BOULARDII) 250 MG CAP PO SCH ×2 (10:00→21:51)
[2022-07-29] MEDS: ASPirin 81 mg TAB PO SCH (10:00)
[2022-07-29 10:55] LABS: Albumin 2.5 g/dL (3.4-5.0); Calcium 7.3 mg/dL (8.5-10.1); Magnesium 2.4 mg/dL (1.6-2.6); Potassium 3.4 mmol/L (3.5-5.1)
[2022-07-29 11:00] LABS: BUN/Creatinine Ratio 14.5; Bilirubin, Total 0.2 mg/dL (0.2-1.0); Phosphorus 4.8 mg/dL (2.5-4.90); Total Protein 5.2 g/dL (6.4-8.2)
[2022-07-29] MEDS ORDERED: POTASSIUM CHL 20MEQ/100ML 100 ML IV ONE (11:45)
[2022-07-29] MEDS: ACCU-CHEK COMFORT CURVE STRIP VI SCH ×2 (12:00→18:00)
[2022-07-29] MEDS ORDERED: DEXTROSE (50%) 50ML SYRG IV SCH (12:00)
[2022-07-29] MEDS: InsuLIN REG 1unit/0.01ml Soln (100units/ml) SC SCH ×2 (12:00→18:00)
[2022-07-29] MEDS: CARVEDILOL 3.125 MG TAB PO SCH ×2 (12:00→21:50)
[2022-07-29 13:00] VITALS: BP 129/54
[2022-07-29] MEDS ORDERED: LIDOCAINE 1% (LOCAL ANESTH.) PF 5ml SDV ID ONE (13:45)
[2022-07-29] MEDS ORDERED: CALCIUM GLUC 1,000mg/50ml-NS 50 ML IV ONE (14:00)
[2022-07-29 16:53] VITALS: BP 130/68
[2022-07-29] MEDS: AMINO ACID INFUSION IN D10W 1,000 ML IV NR (19:49)
[2022-07-29 20:00] VITALS: BP 107/47
[2022-07-29] MEDS ORDERED: PPN PER PHARMACY IV NR ×8 (20:00)
[2022-07-29] MEDS ORDERED: EPOETIN ALFA-EPBX 10,000 UNIT/1ML VIAL SC ONE (21:00)
[2022-07-29] MEDS: SODIUM CHLOR 0.9% PF (SALINE LOCK) 10ML VIAL/SYR IV SCH (21:50)
[2022-07-29] MEDS: HYDROcodone-ACET 5/325MG TAB PO PRN (21:55)
[2022-07-29 22:00] VITALS: BP 102/41
[2022-07-30 05:22] LABS: Potassium 3.1 mmol/L (3.5-5.1)
[2022-07-30 05:29] VITALS: BP 125/47
[2022-07-30 05:30] LABS: Albumin 2.5 g/dL (3.4-5.0); BUN/Creatinine Ratio 10.7; Bilirubin, Total 0.3 mg/dL (0.2-1.0); Calcium 7.2 mg/dL (8.5-10.1); Magnesium 2.2 mg/dL (1.6-2.6); Phosphorus 2.9 mg/dL (2.5-4.90); Total Protein 5.1 g/dL (6.4-8.2)
[2022-07-30] MEDS: InsuLIN REG 1unit/0.01ml Soln (100units/ml) SC SCH ×4 (06:00→18:00)
[2022-07-30] MEDS: ACCU-CHEK COMFORT CURVE STRIP VI SCH ×4 (06:18→18:15)
[2022-07-30] MEDS: LEVOTHYROXINE SODIUM 50 MCG TAB PO SCH (06:35)
[2022-07-30] MEDS: PANTOPRAZOLE 40 MG TAB PO SCH (08:46)
[2022-07-30 08:47] VITALS: BP 124/50
[2022-07-30] MEDS ORDERED: POTASSIUM CHL 20MEQ/100ML 100 ML IV ONE ×2 (09:30→12:00)
[2022-07-30] MEDS ORDERED: FECAL MICROBIOTA TRANSPLANTATION 30mL SUSPENSION NG ONE (10:00)
[2022-07-30] MEDS: ASPirin 81 mg TAB PO SCH (10:45)
[2022-07-30] MEDS: SODIUM CHLOR 0.9% PF (SALINE LOCK) 10ML VIAL/SYR IV SCH ×2 (10:47→22:13)
[2022-07-30] MEDS: CARVEDILOL 3.125 MG TAB PO SCH ×2 (10:47→22:13)
[2022-07-30] MEDS: FLORASTOR (S. BOULARDII) 250 MG CAP PO SCH ×2 (10:47→22:12)
[2022-07-30 12:41] VITALS: BP 121/55
[2022-07-30] MEDS ORDERED: POTASSIUM PHOSP 22MEQ(15MMOLE) in NS 100 ML IV ONE (14:00)
[2022-07-30] MEDS ORDERED: CALCIUM GLUC 1,000mg/50ml-NS 50 ML IV ONE (16:00)
[2022-07-30 17:00] VITALS: BP 121/52
[2022-07-30 17:02] LABS: Basophils # (auto) 0 10 ^3/uL (0-0.2); Eosinophils # (auto) 0.1 10 ^3/uL (0-0.8); Hematocrit 22.1 % (41.0-53.0); Hemoglobin 7.5 g/dL (13.5-17.5); Lymphocytes # (auto) 1.4 10 ^3/uL (0.4-5.4); Monocytes # (auto) 0.4 10 ^3/uL (0-1.3); Neutrophils # (auto) 2.2 10 ^3/uL (1.6-8.6); Nucleated Red Blood Cells % 0.1 %; White Blood Cell 4.1 10^3/uL (4.4-10.8)
[2022-07-30 17:04] LABS: Basophils % (auto) 0.3 % (0.0-2.0); Eosinophils % (auto) 2.7 % (0.0-7.0); Lymphocytes % (auto) 34.2 % (10.0-50.0); Mean Corpuscular Hemoglobin 31.4 pg (28.0-32.0); Mean Corpuscular Hgb Conc. 33.9 g/dL (32.0-36.0); Mean Corpuscular Volume 92.4 fL (80.0-100.0); Monocytes % (auto) 9.5 % (0.0-12.0); Neutrophils % (auto) 53.3 % (37.0-80.0); Red Blood Cells 2.39 10^6/uL (4.5-5.90)
[2022-07-30 17:07] LABS: Red Cell Distribution Width 20.5 % (11.8-14.3)
[2022-07-30 17:35] LABS: Albumin 2.5 g/dL (3.4-5.0); BUN/Creatinine Ratio 11.5; Potassium 3.1 mmol/L (3.5-5.1)
[2022-07-30 17:37] LABS: Bilirubin, Total 0.2 mg/dL (0.2-1.0)
[2022-07-30] MEDS ORDERED: TPN PER PHARMACY IV NR ×8 (20:00)
[2022-07-30 22:00] VITALS: BP 116/52
[2022-07-31] MEDS: ACCU-CHEK COMFORT CURVE STRIP VI SCH ×4 (00:19→18:00)
[2022-07-31 05:00] VITALS: BP 139/56
[2022-07-31 05:53] LABS: Albumin 2.4 g/dL (3.4-5.0); BUN/Creatinine Ratio 13.1; Calcium 7.1 mg/dL (8.5-10.1); Magnesium 2.3 mg/dL (1.6-2.6); Potassium 3.7 mmol/L (3.5-5.1)
[2022-07-31 05:56] LABS: Bilirubin, Total 0.3 mg/dL (0.2-1.0); Phosphorus 3.8 mg/dL (2.5-4.90)
[2022-07-31] MEDS: InsuLIN REG 1unit/0.01ml Soln (100units/ml) SC SCH ×4 (06:00→18:00)
[2022-07-31] MEDS: LEVOTHYROXINE SODIUM 50 MCG TAB PO SCH (06:47)
[2022-07-31 08:00] VITALS: BP 114/50
[2022-07-31] MEDS: SODIUM CHLOR 0.9% PF (SALINE LOCK) 10ML VIAL/SYR IV SCH ×2 (09:29→22:42)
[2022-07-31] MEDS: ASPirin 81 mg TAB PO SCH (09:29)
[2022-07-31] MEDS: FLORASTOR (S. BOULARDII) 250 MG CAP PO SCH ×2 (09:29→22:19)
[2022-07-31] MEDS: CARVEDILOL 3.125 MG TAB PO SCH ×2 (09:30→22:00)
[2022-07-31 12:00] VITALS: BP 112/53
[2022-07-31 16:00] VITALS: BP 119/53
[2022-07-31] MEDS: ENSURE CLEAR Mixed Berry 8oz Carton PO SCH (18:00)
[2022-07-31] MEDS: TPN PER PHARMACY IV NR ×10 (20:00)
[2022-07-31 22:00] VITALS: BP 118/55
[2022-08-01] MEDS: TPN PER PHARMACY IV NR ×10 (00:53)
[2022-08-01 05:00] VITALS: BP 126/61
[2022-08-01] MEDS: InsuLIN REG 1unit/0.01ml Soln (100units/ml) SC SCH ×5 (06:00→23:56)
[2022-08-01] MEDS: ACCU-CHEK COMFORT CURVE STRIP VI SCH ×5 (06:12→23:56)
[2022-08-01] MEDS: LEVOTHYROXINE SODIUM 50 MCG TAB PO SCH (06:13)
[2022-08-01] MEDS ORDERED: SODIUM CHL 0.9% 1000 ML BAG XX ONE (07:00)
[2022-08-01 07:04] LABS: BUN/Creatinine Ratio 14.5; Potassium 4.1 mmol/L (3.5-5.1)
[2022-08-01 07:05] LABS: Albumin 2.5 g/dL (3.4-5.0); Bilirubin, Total 0.4 mg/dL (0.2-1.0); Calcium 7.4 mg/dL (8.5-10.1); Magnesium 2.4 mg/dL (1.6-2.6); Phosphorus 3.4 mg/dL (2.5-4.90)
[2022-08-01 08:00] VITALS: BP 120/49
[2022-08-01] MEDS: CARVEDILOL 3.125 MG TAB PO SCH ×2 (10:00→23:13)
[2022-08-01 12:00] VITALS: BP 99/47
[2022-08-01] MEDS: ASPirin 81 mg TAB PO SCH (12:04)
[2022-08-01] MEDS: FLORASTOR (S. BOULARDII) 250 MG CAP PO SCH ×2 (12:04→23:14)
[2022-08-01] MEDS: ENSURE CLEAR Mixed Berry 8oz Carton PO SCH ×3 (12:26→19:15)
[2022-08-01] MEDS: SODIUM CHLOR 0.9% PF (SALINE LOCK) 10ML VIAL/SYR IV SCH ×2 (12:26→23:13)
[2022-08-01 16:00] VITALS: BP 136/60
[2022-08-01 20:00] VITALS: BP 122/61
[2022-08-01] MEDS ORDERED: TPN PER PHARMACY IV NR ×7 (20:00)
[2022-08-01] MEDS ORDERED: EPOETIN ALFA-EPBX 10,000 UNIT/1ML VIAL SC ONE (21:00)
[2022-08-01 22:00] VITALS: BP 127/61
[2022-08-02] VITALS (7 sets, daily range): BP systolic 104–121; BP diastolic 46–56
[2022-08-02] MEDS: ACCU-CHEK COMFORT CURVE STRIP VI SCH ×3 (06:00→17:43)
[2022-08-02] MEDS: InsuLIN REG 1unit/0.01ml Soln (100units/ml) SC SCH ×3 (06:00→17:44)
[2022-08-02] MEDS: LEVOTHYROXINE SODIUM 50 MCG TAB PO SCH (06:17)
[2022-08-02 06:40] LABS: Albumin 2.5 g/dL (3.4-5.0); BUN/Creatinine Ratio 13.7; Bilirubin, Total 0.3 mg/dL (0.2-1.0); Calcium 7.4 mg/dL (8.5-10.1); Magnesium 2.3 mg/dL (1.6-2.6); Phosphorus 2.2 mg/dL (2.5-4.90); Potassium 3.5 mmol/L (3.5-5.1)
[2022-08-02] MEDS: ENSURE CLEAR Mixed Berry 8oz Carton PO SCH ×3 (08:00→17:44)
[2022-08-02] MEDS: ASPirin 81 mg TAB PO SCH (09:40)
[2022-08-02] MEDS: FLORASTOR (S. BOULARDII) 250 MG CAP PO SCH ×2 (09:40→22:26)
[2022-08-02] MEDS: SODIUM CHLOR 0.9% PF (SALINE LOCK) 10ML VIAL/SYR IV SCH ×2 (09:40→22:25)
[2022-08-02] MEDS: CARVEDILOL 3.125 MG TAB PO SCH ×2 (09:40→22:00)
[2022-08-02] MEDS: LOPERAMIDE HCL 2 MG CAP/TAB PO PRN ×2 (11:20→18:16)
[2022-08-02] MEDS ORDERED: TPN PER PHARMACY IV NR ×8 (20:00)
[2022-08-02] MEDS: ACETAMINOPHEN 325 MG TAB PO PRN (22:27)
[2022-08-03] MEDS: ACCU-CHEK COMFORT CURVE STRIP VI SCH ×3 (00:20→17:32)
[2022-08-03] MEDS: LOPERAMIDE HCL 2 MG CAP/TAB PO PRN ×2 (00:45→10:11)
[2022-08-03 04:56] VITALS: BP 101/51
[2022-08-03] MEDS: InsuLIN REG 1unit/0.01ml Soln (100units/ml) SC SCH ×2 (05:59)
[2022-08-03 06:03] LABS: Albumin 2.3 g/dL (3.4-5.0); Calcium 7.6 mg/dL (8.5-10.1); Magnesium 1.9 mg/dL (1.6-2.6); Potassium 3.2 mmol/L (3.5-5.1)
[2022-08-03 06:05] LABS: BUN/Creatinine Ratio 15.3
[2022-08-03 06:08] LABS: Bilirubin, Total 0.3 mg/dL (0.2-1.0); Phosphorus 2.8 mg/dL (2.5-4.90)
[2022-08-03] MEDS ORDERED: SODIUM CHL 0.9% 1000 ML BAG XX ONE (07:00)
[2022-08-03 08:54] VITALS: BP 107/47
[2022-08-03] MEDS ORDERED: POTASSIUM CHL 20MEQ/100ML 100 ML IV ONE (09:30)
[2022-08-03] MEDS: ASPirin 81 mg TAB PO SCH (10:11)
[2022-08-03] MEDS: FLORASTOR (S. BOULARDII) 250 MG CAP PO SCH ×2 (10:11→22:34)
[2022-08-03] MEDS: LEVOTHYROXINE SODIUM 50 MCG TAB PO SCH (10:11)
[2022-08-03] MEDS: CARVEDILOL 3.125 MG TAB PO SCH ×2 (10:11→22:38)
[2022-08-03] MEDS: SODIUM CHLOR 0.9% PF (SALINE LOCK) 10ML VIAL/SYR IV SCH ×2 (10:12→22:37)
[2022-08-03] MEDS: ENSURE CLEAR Mixed Berry 8oz Carton PO SCH ×3 (12:00→18:00)
[2022-08-03 13:00] VITALS: BP 111/49
[2022-08-03] MEDS ORDERED: DEXTROSE (50%) 50ML SYRG IV PRN (16:45)
[2022-08-03] MEDS ORDERED: TPN PER PHARMACY IV NR ×9 (20:00)
[2022-08-03] MEDS ORDERED: EPOETIN ALFA-EPBX 10,000 UNIT/1ML VIAL SC ONE ×2 (21:00→22:05)
[2022-08-03 21:47] LABS: Basophils # (auto) 0 10 ^3/uL (0-0.2); Basophils % (auto) 0.4 % (0.0-2.0); Eosinophils # (auto) 0.2 10 ^3/uL (0-0.8); Eosinophils % (auto) 1.8 % (0.0-7.0); Hematocrit 22.4 % (41.0-53.0); Hemoglobin 7.5 g/dL (13.5-17.5); Lymphocytes # (auto) 1.7 10 ^3/uL (0.4-5.4); Lymphocytes % (auto) 17.4 % (10.0-50.0); Mean Corpuscular Hgb Conc. 33.4 g/dL (32.0-36.0); Mean Corpuscular Volume 92.7 fL (80.0-100.0); Monocytes # (auto) 0.9 10 ^3/uL (0-1.3); Monocytes % (auto) 8.8 % (0.0-12.0); Neutrophils # (auto) 6.9 10 ^3/uL (1.6-8.6); Neutrophils % (auto) 71.6 % (37.0-80.0); Red Blood Cells 2.42 10^6/uL (4.5-5.90); Red Cell Distribution Width 19.9 % (11.8-14.3); White Blood Cell 9.7 10^3/uL (4.4-10.8)
[2022-08-03 22:00] VITALS: BP 110/40
[2022-08-04 05:00] VITALS: BP 103/41
[2022-08-04] MEDS: ACCU-CHEK COMFORT CURVE STRIP VI SCH ×5 (05:58→23:07)
[2022-08-04] MEDS: LEVOTHYROXINE SODIUM 50 MCG TAB PO SCH (06:45)
[2022-08-04 07:06] LABS: Potassium 3.4 mmol/L (3.5-5.1)
[2022-08-04 07:21] LABS: Albumin 2.3 g/dL (3.4-5.0); BUN/Creatinine Ratio 13.6; Calcium 7.6 mg/dL (8.5-10.1); Magnesium 1.9 mg/dL (1.6-2.6); Phosphorus 2.7 mg/dL (2.5-4.90); Total Protein 4.8 g/dL (6.4-8.2)
[2022-08-04 07:25] LABS: Bilirubin, Total 0.3 mg/dL (0.2-1.0)
[2022-08-04] MEDS: ENSURE CLEAR Mixed Berry 8oz Carton PO SCH ×3 (08:00→18:16)
[2022-08-04] MEDS ORDERED: POTASSIUM CHL 20MEQ/100ML 100 ML IV ONE (08:30)
[2022-08-04 09:00] VITALS: BP 101/46
[2022-08-04] MEDS: CARVEDILOL 3.125 MG TAB PO SCH ×2 (10:00→22:03)
[2022-08-04] MEDS: SODIUM CHLOR 0.9% PF (SALINE LOCK) 10ML VIAL/SYR IV SCH ×2 (10:00→22:03)
[2022-08-04] MEDS: FLORASTOR (S. BOULARDII) 250 MG CAP PO SCH ×2 (10:41→22:04)
[2022-08-04] MEDS: ASPirin 81 mg TAB PO SCH (10:41)
[2022-08-04] MEDS: LOPERAMIDE HCL 2 MG CAP/TAB PO PRN ×2 (11:12→18:16)
[2022-08-04 13:00] VITALS: BP 123/59
[2022-08-04 17:00] VITALS: BP 127/49
[2022-08-04] MEDS ORDERED: TPN PER PHARMACY IV NR ×9 (20:00)
[2022-08-04 21:53] VITALS: BP 110/44
[2022-08-04] MEDS: HYDROcodone-ACET 5/325MG TAB PO PRN (23:08)
[2022-08-05 04:33] VITALS: BP 109/37
[2022-08-05 06:11] LABS: Potassium 3.6 mmol/L (3.5-5.1)
[2022-08-05 06:16] LABS: Albumin 2.2 g/dL (3.4-5.0); BUN/Creatinine Ratio 14.2; Calcium 7.7 mg/dL (8.5-10.1); Magnesium 1.9 mg/dL (1.6-2.6)
[2022-08-05 06:18] LABS: Bilirubin, Total 0.3 mg/dL (0.2-1.0); Phosphorus 4.2 mg/dL (2.5-4.90); Total Protein 4.8 g/dL (6.4-8.2)
[2022-08-05] MEDS: LEVOTHYROXINE SODIUM 50 MCG TAB PO SCH (06:31)
[2022-08-05] MEDS: ACCU-CHEK COMFORT CURVE STRIP VI SCH ×3 (06:31→17:54)
[2022-08-05] MEDS: ENSURE CLEAR Mixed Berry 8oz Carton PO SCH ×3 (08:00→17:54)
[2022-08-05 09:00] VITALS: BP 109/49
[2022-08-05] MEDS: SODIUM CHLOR 0.9% PF (SALINE LOCK) 10ML VIAL/SYR IV SCH ×2 (10:00→22:00)
[2022-08-05] MEDS: CARVEDILOL 3.125 MG TAB PO SCH ×2 (10:00→22:01)
[2022-08-05] MEDS: ASPirin 81 mg TAB PO SCH (10:27)
[2022-08-05] MEDS: FLORASTOR (S. BOULARDII) 250 MG CAP PO SCH ×2 (10:27→22:00)
[2022-08-05] MEDS: LOPERAMIDE HCL 2 MG CAP/TAB PO PRN ×2 (10:32→17:57)
[2022-08-05 13:00] VITALS: BP 111/59
[2022-08-05 17:00] VITALS: BP 111/64
[2022-08-05] MEDS ORDERED: TPN PER PHARMACY IV NR ×9 (20:00)
[2022-08-05 22:00] VITALS: BP 113/35
[2022-08-05] MEDS: HYDROcodone-ACET 5/325MG TAB PO PRN (22:01)
[2022-08-06] MEDS: LOPERAMIDE HCL 2 MG CAP/TAB PO PRN ×2 (00:19→19:39)
[2022-08-06] MEDS: ACCU-CHEK COMFORT CURVE STRIP VI SCH ×4 (00:25→19:43)
[2022-08-06 05:25] VITALS: BP 116/29
[2022-08-06] MEDS: LEVOTHYROXINE SODIUM 50 MCG TAB PO SCH (06:23)
[2022-08-06] MEDS: ENSURE CLEAR Mixed Berry 8oz Carton PO SCH ×3 (08:00→19:42)
[2022-08-06 09:00] VITALS: BP 107/48
[2022-08-06] MEDS: ASPirin 81 mg TAB PO SCH (09:54)
[2022-08-06] MEDS: CARVEDILOL 3.125 MG TAB PO SCH ×2 (09:54→22:21)
[2022-08-06] MEDS: FLORASTOR (S. BOULARDII) 250 MG CAP PO SCH ×2 (09:54→22:18)
[2022-08-06 11:02] LABS: Albumin 2.2 g/dL (3.4-5.0); Calcium 7.4 mg/dL (8.5-10.1); Magnesium 2.1 mg/dL (1.6-2.6); Potassium 3.8 mmol/L (3.5-5.1)
[2022-08-06 11:05] LABS: Bilirubin, Total 0.2 mg/dL (0.2-1.0); Phosphorus 3.8 mg/dL (2.5-4.90)
[2022-08-06 13:00] VITALS: BP 105/53
[2022-08-06 17:00] VITALS: BP 111/55
[2022-08-06] MEDS: SODIUM CHLOR 0.9% PF (SALINE LOCK) 10ML VIAL/SYR IV SCH ×2 (19:42→22:24)
[2022-08-06] MEDS ORDERED: TPN PER PHARMACY IV NR ×10 (20:00)
[2022-08-06 22:00] VITALS: BP 119/41
[2022-08-07] MEDS: ACCU-CHEK COMFORT CURVE STRIP VI SCH ×4 (02:03→19:29)
[2022-08-07 05:00] VITALS: BP 104/43
[2022-08-07] MEDS: LEVOTHYROXINE SODIUM 50 MCG TAB PO SCH (06:29)
[2022-08-07] MEDS: LOPERAMIDE HCL 2 MG CAP/TAB PO PRN ×2 (06:54→10:00)
[2022-08-07 08:00] VITALS: BP 115/49
[2022-08-07] MEDS: ASPirin 81 mg TAB PO SCH (10:00)
[2022-08-07] MEDS: FLORASTOR (S. BOULARDII) 250 MG CAP PO SCH ×2 (10:00→21:44)
[2022-08-07] MEDS: CARVEDILOL 3.125 MG TAB PO SCH ×2 (10:01→21:43)
[2022-08-07] MEDS: SODIUM CHLOR 0.9% PF (SALINE LOCK) 10ML VIAL/SYR IV SCH ×2 (10:06→21:41)
[2022-08-07] MEDS: ENSURE CLEAR Mixed Berry 8oz Carton PO SCH ×3 (10:06→18:00)
[2022-08-07 11:09] LABS: Albumin 2.1 g/dL (3.4-5.0); BUN/Creatinine Ratio 17.6; Calcium 7.9 mg/dL (8.5-10.1); Magnesium 2.1 mg/dL (1.6-2.6)
[2022-08-07 11:11] LABS: Bilirubin, Total 0.3 mg/dL (0.2-1.0); Phosphorus 4.3 mg/dL (2.5-4.90)
[2022-08-07 12:00] VITALS: BP 107/38
[2022-08-07 17:03] VITALS: BP 106/46
[2022-08-07] MEDS ORDERED: SODIUM CHL 0.9% 1000 ML BAG XX ONE (19:00)
[2022-08-07] MEDS: TPN PER PHARMACY IV NR ×8 (21:41)
[2022-08-07 22:00] VITALS: BP 115/54
[2022-08-08] MEDS: ACCU-CHEK COMFORT CURVE STRIP VI SCH ×5 (00:25→23:54)
[2022-08-08 05:00] VITALS: BP 123/48
[2022-08-08] MEDS: LEVOTHYROXINE SODIUM 50 MCG TAB PO SCH (06:35)
[2022-08-08] MEDS: LOPERAMIDE HCL 2 MG CAP/TAB PO PRN ×2 (06:36→22:18)
[2022-08-08 09:00] VITALS: BP 120/56
[2022-08-08 09:23] LABS: Basophils # (auto) 0 10 ^3/uL (0-0.2); Eosinophils # (auto) 0.2 10 ^3/uL (0-0.8); Hemoglobin 7.8 g/dL (13.5-17.5); Red Blood Cells 2.47 10^6/uL (4.5-5.90); Red Cell Distribution Width 20.5 % (11.8-14.3)
[2022-08-08 09:25] LABS: Basophils % (auto) 0.4 % (0.0-2.0); Eosinophils % (auto) 3.3 % (0.0-7.0); Hematocrit 22.9 % (41.0-53.0); Lymphocytes # (auto) 1.7 10 ^3/uL (0.4-5.4); Lymphocytes % (auto) 24.5 % (10.0-50.0); Mean Corpuscular Hemoglobin 31.8 pg (28.0-32.0); Mean Corpuscular Hgb Conc. 34.3 g/dL (32.0-36.0); Mean Corpuscular Volume 92.7 fL (80.0-100.0); Monocytes # (auto) 0.9 10 ^3/uL (0-1.3); Monocytes % (auto) 12.9 % (0.0-12.0); Neutrophils # (auto) 4.1 10 ^3/uL (1.6-8.6); Neutrophils % (auto) 58.9 % (37.0-80.0); Nucleated Red Blood Cells % 0.1 %
[2022-08-08] MEDS: ASPirin 81 mg TAB PO SCH (10:12)
[2022-08-08] MEDS: FLORASTOR (S. BOULARDII) 250 MG CAP PO SCH ×2 (10:12→22:17)
[2022-08-08] MEDS: CARVEDILOL 3.125 MG TAB PO SCH ×2 (10:12→22:00)
[2022-08-08 10:57] LABS: Albumin 2.1 g/dL (3.4-5.0); Anion Gap 15 (5-15); Calcium 7.6 mg/dL (8.5-10.1); Carbon Dioxide 19 mmol/L (21-32); Chloride 99 mmol/L (98-107); Glucose 112 mg/dL (74-106); Magnesium 2.1 mg/dL (1.6-2.6); Potassium 4.2 mmol/L (3.5-5.1); Sodium 133 mmol/L (136-145)
[2022-08-08 11:00] LABS: Alanine Aminotransferase 12 U/L (16-61); Alkaline Phosphatase 51 U/L (45-117); Aspartate Aminotransferase 9 U/L (15-37); BUN/Creatinine Ratio 18.5; Bilirubin, Total 0.2 mg/dL (0.2-1.0); GFR African American 13 mL/min; GFR Non-African American 11 mL/min; Phosphorus 4.3 mg/dL (2.5-4.90)
[2022-08-08 11:10] LABS: Blood Urea Nitrogen 101 mg/dL (7-18)
[2022-08-08] MEDS: ENSURE CLEAR Mixed Berry 8oz Carton PO SCH ×3 (12:00→17:54)
[2022-08-08 13:00] VITALS: BP 121/51
[2022-08-08] MEDS: SODIUM CHLOR 0.9% PF (SALINE LOCK) 10ML VIAL/SYR IV SCH ×2 (13:27→22:17)
[2022-08-08 17:00] VITALS: BP 99/47
[2022-08-08] MEDS: TPN PER PHARMACY IV NR ×8 (19:49)
[2022-08-08] MEDS ORDERED: TPN PER PHARMACY IV NR ×17 (20:00)
[2022-08-08 22:00] VITALS: BP 92/39
[2022-08-09 05:00] VITALS: BP 105/41
[2022-08-09] MEDS: LEVOTHYROXINE SODIUM 50 MCG TAB PO SCH (06:40)
[2022-08-09] MEDS: LOPERAMIDE HCL 2 MG CAP/TAB PO PRN ×2 (06:40→12:46)
[2022-08-09] MEDS: ACCU-CHEK COMFORT CURVE STRIP VI SCH ×3 (06:40→17:47)
[2022-08-09 06:42] LABS: Albumin 2.1 g/dL (3.4-5.0); Calcium 7.6 mg/dL (8.5-10.1); Magnesium 1.9 mg/dL (1.6-2.6); Potassium 4.3 mmol/L (3.5-5.1)
[2022-08-09 06:44] LABS: BUN/Creatinine Ratio 17.4
[2022-08-09] MEDS ORDERED: SODIUM CHL 0.9% 1000 ML BAG XX ONE (07:00)
[2022-08-09 07:24] LABS: Bilirubin, Total 0.2 mg/dL (0.2-1.0); Total Protein 4.6 g/dL (6.4-8.2)
[2022-08-09 09:00] VITALS: BP 110/40
[2022-08-09] MEDS: SODIUM CHLOR 0.9% PF (SALINE LOCK) 10ML VIAL/SYR IV SCH ×2 (09:22→22:30)
[2022-08-09] MEDS: ENSURE CLEAR Mixed Berry 8oz Carton PO SCH ×3 (09:22→17:47)
[2022-08-09] MEDS: CARVEDILOL 3.125 MG TAB PO SCH ×2 (09:22→22:00)
[2022-08-09] MEDS: FLORASTOR (S. BOULARDII) 250 MG CAP PO SCH ×2 (09:39→22:30)
[2022-08-09] MEDS: ASPirin 81 mg TAB PO SCH (09:39)
[2022-08-09 14:00] VITALS: BP 100/36
[2022-08-09 17:00] VITALS: BP 122/36
[2022-08-09] MEDS ORDERED: TPN PER PHARMACY IV NR ×10 (20:00)
[2022-08-09] MEDS ORDERED: EPOETIN ALFA-EPBX 10,000 UNIT/1ML VIAL SC ONE (21:00)
[2022-08-09 22:00] VITALS: BP 94/49
[2022-08-10 05:00] VITALS: BP 118/50
[2022-08-10] MEDS: ACCU-CHEK COMFORT CURVE STRIP VI SCH ×5 (06:24→22:45)
[2022-08-10] MEDS: LEVOTHYROXINE SODIUM 50 MCG TAB PO SCH (06:24)
[2022-08-10] MEDS: LOPERAMIDE HCL 2 MG CAP/TAB PO PRN (06:25)
[2022-08-10] MEDS: ENSURE CLEAR Mixed Berry 8oz Carton PO SCH ×3 (08:00→18:00)
[2022-08-10 08:43] VITALS: BP 105/44
[2022-08-10 09:03] LABS: Basophils # (auto) 0 10 ^3/uL (0-0.2); Eosinophils # (auto) 0.2 10 ^3/uL (0-0.8); Lymphocytes # (auto) 1.4 10 ^3/uL (0.4-5.4); Mean Corpuscular Hemoglobin 30.5 pg (28.0-32.0)
[2022-08-10 09:05] LABS: Basophils % (auto) 0.5 % (0.0-2.0); Eosinophils % (auto) 3.4 % (0.0-7.0); Hematocrit 24.4 % (41.0-53.0); Lymphocytes % (auto) 20.6 % (10.0-50.0); Mean Corpuscular Hgb Conc. 32.6 g/dL (32.0-36.0); Mean Corpuscular Volume 93.5 fL (80.0-100.0); Monocytes # (auto) 0.8 10 ^3/uL (0-1.3); Monocytes % (auto) 11.1 % (0.0-12.0); Neutrophils # (auto) 4.4 10 ^3/uL (1.6-8.6); Neutrophils % (auto) 64.4 % (37.0-80.0); Red Blood Cells 2.62 10^6/uL (4.5-5.90); White Blood Cell 6.8 10^3/uL (4.4-10.8)
[2022-08-10 09:28] LABS: Albumin 2.1 g/dL (3.4-5.0); BUN/Creatinine Ratio 20.4; Bilirubin, Direct 0.1 mg/dL (0-0.2); Calcium 7.7 mg/dL (8.5-10.1); Magnesium 2.2 mg/dL (1.6-2.6); Phosphorus 4.6 mg/dL (2.5-4.90); Potassium 4.2 mmol/L (3.5-5.1); Total Protein 4.5 g/dL (6.4-8.2)
[2022-08-10 09:30] LABS: Bilirubin, Total 0.7 mg/dL (0.2-1.0)
[2022-08-10] MEDS: SODIUM CHLOR 0.9% PF (SALINE LOCK) 10ML VIAL/SYR IV SCH (10:00)
[2022-08-10] MEDS: FLORASTOR (S. BOULARDII) 250 MG CAP PO SCH ×2 (10:30→22:00)
[2022-08-10] MEDS: ASPirin 81 mg TAB PO SCH (10:30)
[2022-08-10] MEDS: CARVEDILOL 3.125 MG TAB PO SCH ×2 (10:31→22:00)
[2022-08-10 12:39] VITALS: BP 92/41
[2022-08-10 17:00] VITALS: BP 114/43
[2022-08-10 22:00] VITALS: BP 100/46
[2022-08-10] MEDS: TPN PER PHARMACY IV NR ×8 (22:12)
[2022-08-11 05:00] VITALS: BP 107/41
[2022-08-11] MEDS: ACCU-CHEK COMFORT CURVE STRIP VI SCH ×3 (05:38→18:00)
[2022-08-11] MEDS: LEVOTHYROXINE SODIUM 50 MCG TAB PO SCH (06:08)
[2022-08-11 06:28] LABS: Albumin 1.9 g/dL (3.4-5.0); BUN/Creatinine Ratio 20.5; Bilirubin, Total 0.4 mg/dL (0.2-1.0); Calcium 7.3 mg/dL (8.5-10.1); Magnesium 2.3 mg/dL (1.6-2.6); Phosphorus 3.7 mg/dL (2.5-4.90); Potassium 4.1 mmol/L (3.5-5.1); Total Protein 4.2 g/dL (6.4-8.2)
[2022-08-11] MEDS: ENSURE CLEAR Mixed Berry 8oz Carton PO SCH ×3 (08:00→18:00)
[2022-08-11 08:56] VITALS: BP 110/75
[2022-08-11] MEDS ORDERED: cefTRIAXone 1GM/50ML D5W 50 ML IV ONE (09:30)
[2022-08-11] MEDS: SODIUM CHLOR 0.9% PF (SALINE LOCK) 10ML VIAL/SYR IV SCH ×3 (10:00→22:00)
[2022-08-11] MEDS: CARVEDILOL 3.125 MG TAB PO SCH ×2 (10:39→22:56)
[2022-08-11] MEDS: ASPirin 81 mg TAB PO SCH (10:39)
[2022-08-11] MEDS: FLORASTOR (S. BOULARDII) 250 MG CAP PO SCH ×2 (10:39→22:52)
[2022-08-11] MEDS: TPN PER PHARMACY IV NR ×16 (11:07→11:53)
[2022-08-11 13:00] VITALS: BP 118/70
[2022-08-11] MEDS: DIFICID 200 MG TABLET PO SCH ×2 (15:23→22:52)
[2022-08-11 17:00] VITALS: BP 112/42
[2022-08-11] MEDS ORDERED: PPN PER PHARMACY IV NR ×8 (20:00)
[2022-08-11] MEDS ORDERED: TPN PER PHARMACY IV NR ×9 (20:00)
[2022-08-11 22:00] VITALS: BP 111/36
[2022-08-12 05:00] VITALS: BP 135/37
[2022-08-12] MEDS: ACCU-CHEK COMFORT CURVE STRIP VI SCH ×5 (05:49→23:40)
[2022-08-12] MEDS: LEVOTHYROXINE SODIUM 50 MCG TAB PO SCH (06:28)
[2022-08-12] MEDS ORDERED: SODIUM CHL 0.9% 1000 ML BAG XX ONE (07:00)
[2022-08-12 07:45] VITALS: BP 103/40
[2022-08-12 09:14] VITALS: BP 103/40
[2022-08-12] MEDS: CARVEDILOL 3.125 MG TAB PO SCH ×2 (10:00→21:08)
[2022-08-12] MEDS: ENSURE CLEAR Mixed Berry 8oz Carton PO SCH ×3 (10:36→17:58)
[2022-08-12] MEDS: ASPirin 81 mg TAB PO SCH (10:38)
[2022-08-12] MEDS: FLORASTOR (S. BOULARDII) 250 MG CAP PO SCH ×2 (10:39→21:07)
[2022-08-12] MEDS: SODIUM CHLOR 0.9% PF (SALINE LOCK) 10ML VIAL/SYR IV SCH ×2 (10:40→21:07)
[2022-08-12] MEDS: cefTRIAXone 1GM/50ML D5W 50 ML IV SCH (10:40)
[2022-08-12] MEDS: DIFICID 200 MG TABLET PO SCH ×2 (10:41→21:07)
[2022-08-12 11:15] LABS: Albumin 1.8 g/dL (3.4-5.0); Calcium 7.4 mg/dL (8.5-10.1); Magnesium 1.9 mg/dL (1.6-2.6); Potassium 3.7 mmol/L (3.5-5.1)
[2022-08-12 11:19] LABS: BUN/Creatinine Ratio 22.2; Bilirubin, Total 0.4 mg/dL (0.2-1.0); Total Protein 4.5 g/dL (6.4-8.2)
[2022-08-12 12:30] VITALS: BP 128/51
[2022-08-12 17:00] VITALS: BP_SYST 108; BP_SYST 128; BP_DIAS 41; BP_DIAS 51
[2022-08-12] MEDS ORDERED: TPN PER PHARMACY IV NR ×9 (20:00)
[2022-08-12] MEDS ORDERED: EPOETIN ALFA-EPBX 10,000 UNIT/1ML VIAL SC ONE (21:00)
[2022-08-12 22:00] VITALS: BP 117/50
[2022-08-13 05:00] VITALS: BP 115/42
[2022-08-13] MEDS: ACCU-CHEK COMFORT CURVE STRIP VI SCH ×3 (06:00→17:58)
[2022-08-13] MEDS: LEVOTHYROXINE SODIUM 50 MCG TAB PO SCH (06:08)
[2022-08-13 08:15] VITALS: BP 139/89
[2022-08-13 08:44] VITALS: BP 139/89
[2022-08-13] MEDS: FLORASTOR (S. BOULARDII) 250 MG CAP PO SCH ×2 (09:53→22:33)
[2022-08-13] MEDS: ASPirin 81 mg TAB PO SCH (09:53)
[2022-08-13] MEDS: cefTRIAXone 1GM/50ML D5W 50 ML IV SCH (09:53)
[2022-08-13] MEDS: DIFICID 200 MG TABLET PO SCH ×2 (09:56→22:31)
[2022-08-13] MEDS: CARVEDILOL 3.125 MG TAB PO SCH ×2 (09:56→22:32)
[2022-08-13] MEDS: ENSURE CLEAR Mixed Berry 8oz Carton PO SCH ×3 (10:02→18:30)
[2022-08-13] MEDS: SODIUM CHLOR 0.9% PF (SALINE LOCK) 10ML VIAL/SYR IV SCH ×2 (10:03→22:31)
[2022-08-13 10:59] LABS: Albumin 1.9 g/dL (3.4-5.0); Calcium 7.5 mg/dL (8.5-10.1); Magnesium 2.3 mg/dL (1.6-2.6); Potassium 3.8 mmol/L (3.5-5.1)
[2022-08-13 11:01] LABS: BUN/Creatinine Ratio 23.5; Phosphorus 4.1 mg/dL (2.5-4.90)
[2022-08-13 13:00] VITALS: BP 110/54
[2022-08-13 17:00] VITALS: BP 109/53
[2022-08-13] MEDS ORDERED: TPN PER PHARMACY IV NR ×8 (20:00)
[2022-08-13 22:00] VITALS: BP 118/49
[2022-08-14 05:00] VITALS: BP 119/48
[2022-08-14] MEDS: ACCU-CHEK COMFORT CURVE STRIP VI SCH ×4 (05:45→18:08)
[2022-08-14] MEDS: LEVOTHYROXINE SODIUM 50 MCG TAB PO SCH (06:36)
[2022-08-14 07:45] VITALS: BP 116/57
[2022-08-14 09:00] VITALS: BP 116/57
[2022-08-14] MEDS: SODIUM CHLOR 0.9% PF (SALINE LOCK) 10ML VIAL/SYR IV SCH ×2 (09:09→22:14)
[2022-08-14] MEDS: DIFICID 200 MG TABLET PO SCH ×2 (09:10→22:16)
[2022-08-14] MEDS: ASPirin 81 mg TAB PO SCH (09:10)
[2022-08-14] MEDS: FLORASTOR (S. BOULARDII) 250 MG CAP PO SCH ×2 (09:10→22:14)
[2022-08-14] MEDS: CARVEDILOL 3.125 MG TAB PO SCH ×2 (09:10→22:15)
[2022-08-14] MEDS: cefTRIAXone 1GM/50ML D5W 50 ML IV SCH (09:11)
[2022-08-14] MEDS: ENSURE CLEAR Mixed Berry 8oz Carton PO SCH ×3 (09:28→18:07)
[2022-08-14 13:00] VITALS: BP 119/72
[2022-08-14 14:07] LABS: Albumin 1.9 g/dL (3.4-5.0); BUN/Creatinine Ratio 25.9; Calcium 7.6 mg/dL (8.5-10.1); Phosphorus 4.1 mg/dL (2.5-4.90); Potassium 3.8 mmol/L (3.5-5.1)
[2022-08-14 14:09] LABS: Bilirubin, Total 0.2 mg/dL (0.2-1.0); Total Protein 4.7 g/dL (6.4-8.2)
[2022-08-14 17:00] VITALS: BP 122/50
[2022-08-14] MEDS ORDERED: TPN PER PHARMACY IV NR ×21 (20:00)
[2022-08-14 21:44] VITALS: BP 136/52
[2022-08-15 04:47] VITALS: BP 111/42
[2022-08-15] MEDS: ACCU-CHEK COMFORT CURVE STRIP VI SCH ×5 (05:03→23:48)
[2022-08-15] MEDS: LEVOTHYROXINE SODIUM 50 MCG TAB PO SCH (06:36)
[2022-08-15 08:30] VITALS: BP 134/47
[2022-08-15] MEDS: ENSURE CLEAR Mixed Berry 8oz Carton PO SCH ×3 (09:44→17:31)
[2022-08-15] MEDS: ASPirin 81 mg TAB PO SCH (09:45)
[2022-08-15] MEDS: cefTRIAXone 1GM/50ML D5W 50 ML IV SCH (09:45)
[2022-08-15] MEDS: SODIUM CHLOR 0.9% PF (SALINE LOCK) 10ML VIAL/SYR IV SCH ×2 (09:45→23:46)
[2022-08-15] MEDS: FLORASTOR (S. BOULARDII) 250 MG CAP PO SCH ×2 (09:46→23:48)
[2022-08-15] MEDS: DIFICID 200 MG TABLET PO SCH ×2 (09:46→23:47)
[2022-08-15] MEDS: CARVEDILOL 3.125 MG TAB PO SCH ×2 (09:54→23:48)
[2022-08-15 11:40] LABS: Albumin 1.9 g/dL (3.4-5.0); Calcium 7.5 mg/dL (8.5-10.1); Potassium 3.9 mmol/L (3.5-5.1)
[2022-08-15 11:43] LABS: BUN/Creatinine Ratio 26.5; Bilirubin, Total 0.1 mg/dL (0.2-1.0); Phosphorus 4.3 mg/dL (2.5-4.90); Total Protein 4.9 g/dL (6.4-8.2)
[2022-08-15 12:30] VITALS: BP 115/51
[2022-08-15] MEDS ORDERED: SODIUM CHL 0.9% 1000 ML BAG XX ONE (13:45)
[2022-08-15 16:52] VITALS: BP 95/56
[2022-08-15 20:00] VITALS: BP 134/47
[2022-08-15] MEDS ORDERED: TPN PER PHARMACY IV NR ×9 (20:00)
[2022-08-15] MEDS ORDERED: EPOETIN ALFA-EPBX 10,000 UNIT/1ML VIAL SC ONE (21:00)
[2022-08-15 22:00] VITALS: BP 139/50
[2022-08-16 05:00] VITALS: BP 115/48
[2022-08-16] MEDS: ACCU-CHEK COMFORT CURVE STRIP VI SCH ×4 (06:00→23:38)
[2022-08-16] MEDS: LEVOTHYROXINE SODIUM 50 MCG TAB PO SCH (06:43)
[2022-08-16 08:00] VITALS: BP 134/47
[2022-08-16] MEDS: ENSURE CLEAR Mixed Berry 8oz Carton PO SCH ×3 (08:00→18:00)
[2022-08-16 09:00] VITALS: BP 148/53
[2022-08-16] MEDS: SODIUM CHLOR 0.9% PF (SALINE LOCK) 10ML VIAL/SYR IV SCH ×2 (10:00→21:31)
[2022-08-16 10:51] LABS: Basophils # (auto) 0 10 ^3/uL (0-0.2); Eosinophils # (auto) 0.1 10 ^3/uL (0-0.8); Eosinophils % (auto) 1.9 % (0.0-7.0); Hematocrit 23.5 % (41.0-53.0); Hemoglobin 7.8 g/dL (13.5-17.5); Lymphocytes # (auto) 0.8 10 ^3/uL (0.4-5.4); Lymphocytes % (auto) 19.2 % (10.0-50.0); Mean Corpuscular Hemoglobin 30.7 pg (28.0-32.0); Mean Corpuscular Hgb Conc. 33.4 g/dL (32.0-36.0); Mean Corpuscular Volume 91.9 fL (80.0-100.0); Monocytes # (auto) 0.2 10 ^3/uL (0-1.3); Monocytes % (auto) 5.4 % (0.0-12.0); Neutrophils # (auto) 3.1 10 ^3/uL (1.6-8.6); Neutrophils % (auto) 72.5 % (37.0-80.0); Red Blood Cells 2.56 10^6/uL (4.5-5.90); White Blood Cell 4.3 10^3/uL (4.4-10.8)
[2022-08-16 11:07] LABS: Albumin 2.1 g/dL (3.4-5.0); Calcium 7.7 mg/dL (8.5-10.1); Magnesium 1.8 mg/dL (1.6-2.6); Potassium 3.5 mmol/L (3.5-5.1)
[2022-08-16 11:20] LABS: BUN/Creatinine Ratio 21.8; Bilirubin, Total 0.3 mg/dL (0.2-1.0); Phosphorus 3.4 mg/dL (2.5-4.90); Total Protein 5.2 g/dL (6.4-8.2)
[2022-08-16] MEDS: ASPirin 81 mg TAB PO SCH (12:00)
[2022-08-16] MEDS: CARVEDILOL 3.125 MG TAB PO SCH ×2 (12:02→21:31)
[2022-08-16] MEDS: DIFICID 200 MG TABLET PO SCH ×2 (12:03→21:31)
[2022-08-16] MEDS: FLORASTOR (S. BOULARDII) 250 MG CAP PO SCH ×2 (12:03→21:30)
[2022-08-16 13:16] VITALS: BP 148/51
[2022-08-16 16:40] VITALS: BP 145/51
[2022-08-16] MEDS ORDERED: TPN PER PHARMACY IV NR ×10 (20:00)
[2022-08-16] MEDS: LOPERAMIDE HCL 2 MG CAP/TAB PO PRN (21:31)
[2022-08-16 22:00] VITALS: BP 102/44
[2022-08-17] VITALS (7 sets, daily range): BP systolic 121–140; BP diastolic 46–75
[2022-08-17] MEDS: LEVOTHYROXINE SODIUM 50 MCG TAB PO SCH (05:10)
[2022-08-17] MEDS: ACCU-CHEK COMFORT CURVE STRIP VI SCH ×4 (05:10→23:14)
[2022-08-17] MEDS: LOPERAMIDE HCL 2 MG CAP/TAB PO PRN (05:10)
[2022-08-17] MEDS: ACETAMINOPHEN 325 MG TAB PO PRN (06:44)
[2022-08-17] MEDS ORDERED: SODIUM CHL 0.9% 1000 ML BAG XX ONE (07:00)
[2022-08-17 07:04] LABS: Calcium 7.4 mg/dL (8.5-10.1); Magnesium 1.9 mg/dL (1.6-2.6)
[2022-08-17 07:07] LABS: BUN/Creatinine Ratio 24.1; Bilirubin, Total 0.2 mg/dL (0.2-1.0); Phosphorus 2.8 mg/dL (2.5-4.90); Total Protein 4.9 g/dL (6.4-8.2)
[2022-08-17 07:12] LABS: Potassium 2.9 mmol/L (3.5-5.1)
[2022-08-17] MEDS: ENSURE CLEAR Mixed Berry 8oz Carton PO SCH ×3 (08:00→18:00)
[2022-08-17] MEDS ORDERED: POTASSIUM CHL 20 Meq TABLET PO ONE (09:30)
[2022-08-17] MEDS: SODIUM CHLOR 0.9% PF (SALINE LOCK) 10ML VIAL/SYR IV SCH ×2 (10:20→22:22)
[2022-08-17] MEDS: ASPirin 81 mg TAB PO SCH (10:20)
[2022-08-17] MEDS: FLORASTOR (S. BOULARDII) 250 MG CAP PO SCH ×2 (10:22→22:21)
[2022-08-17] MEDS: DIFICID 200 MG TABLET PO SCH ×2 (10:22→22:00)
[2022-08-17] MEDS: CARVEDILOL 3.125 MG TAB PO SCH ×2 (10:25→21:47)
[2022-08-17] MEDS ORDERED: TPN PER PHARMACY IV NR ×10 (20:00)
[2022-08-17] MEDS ORDERED: EPOETIN ALFA-EPBX 10,000 UNIT/1ML VIAL SC ONE (21:00)
[2022-08-18] VITALS (8 sets, daily range): BP systolic 115–146; BP diastolic 42–52
[2022-08-18] MEDS: ACCU-CHEK COMFORT CURVE STRIP VI SCH ×3 (06:21→18:00)
[2022-08-18 06:24] LABS: Albumin 2.1 g/dL (3.4-5.0); Calcium 7.6 mg/dL (8.5-10.1); Magnesium 2.2 mg/dL (1.6-2.6); Potassium 4.1 mmol/L (3.5-5.1)
[2022-08-18 06:27] LABS: BUN/Creatinine Ratio 20.1
[2022-08-18 06:30] LABS: Bilirubin, Total 0.3 mg/dL (0.2-1.0); Total Protein 5.1 g/dL (6.4-8.2)
[2022-08-18] MEDS: LEVOTHYROXINE SODIUM 50 MCG TAB PO SCH (06:57)
[2022-08-18] MEDS: ENSURE CLEAR Mixed Berry 8oz Carton PO SCH ×3 (08:00→18:00)
[2022-08-18] MEDS: DIFICID 200 MG TABLET PO SCH ×2 (10:07→22:11)
[2022-08-18] MEDS: ASPirin 81 mg TAB PO SCH (10:07)
[2022-08-18] MEDS: SODIUM CHLOR 0.9% PF (SALINE LOCK) 10ML VIAL/SYR IV SCH ×2 (10:07→22:08)
[2022-08-18] MEDS: CARVEDILOL 3.125 MG TAB PO SCH ×2 (10:09→21:45)
[2022-08-18] MEDS: FLORASTOR (S. BOULARDII) 250 MG CAP PO SCH ×2 (10:10→21:20)
[2022-08-18] MEDS ORDERED: TPN PER PHARMACY IV NR ×10 (20:00)
[2022-08-19 05:00] VITALS: BP 139/80
[2022-08-19] MEDS: ACCU-CHEK COMFORT CURVE STRIP VI SCH ×4 (05:42→18:00)
[2022-08-19 06:37] LABS: Albumin 2.1 g/dL (3.4-5.0); Calcium 7.6 mg/dL (8.5-10.1)
[2022-08-19 06:41] LABS: BUN/Creatinine Ratio 23.2; Bilirubin, Total 0.3 mg/dL (0.2-1.0); Phosphorus 4.6 mg/dL (2.5-4.90); Total Protein 4.9 g/dL (6.4-8.2)
[2022-08-19] MEDS: LEVOTHYROXINE SODIUM 50 MCG TAB PO SCH (06:54)
[2022-08-19] MEDS ORDERED: SODIUM CHL 0.9% 1000 ML BAG XX ONE (07:00)
[2022-08-19 08:00] VITALS: BP 134/47
[2022-08-19] MEDS: ENSURE CLEAR Mixed Berry 8oz Carton PO SCH ×3 (08:00→18:09)
[2022-08-19 09:00] VITALS: BP 126/50
[2022-08-19] MEDS: SODIUM CHLOR 0.9% PF (SALINE LOCK) 10ML VIAL/SYR IV SCH ×2 (10:00→21:20)
[2022-08-19 13:00] VITALS: BP 123/50
[2022-08-19] MEDS: FLORASTOR (S. BOULARDII) 250 MG CAP PO SCH ×2 (15:25→22:07)
[2022-08-19] MEDS: DIFICID 200 MG TABLET PO SCH ×2 (15:26→22:07)
[2022-08-19] MEDS: ASPirin 81 mg TAB PO SCH (15:26)
[2022-08-19] MEDS: CARVEDILOL 3.125 MG TAB PO SCH ×2 (15:27→22:08)
[2022-08-19 17:00] VITALS: BP 112/58
[2022-08-19] MEDS: TPN PER PHARMACY IV NR ×18 (20:26→22:21)
[2022-08-19] MEDS ORDERED: EPOETIN ALFA-EPBX 10,000 UNIT/1ML VIAL SC ONE (21:00)
[2022-08-19 22:00] VITALS: BP 156/57
[2022-08-20 05:00] VITALS: BP 134/50
[2022-08-20] MEDS: ACCU-CHEK COMFORT CURVE STRIP VI SCH ×4 (05:48→18:00)
[2022-08-20] MEDS: LEVOTHYROXINE SODIUM 50 MCG TAB PO SCH (06:05)
[2022-08-20 08:36] VITALS: BP 159/59
[2022-08-20] MEDS: ENSURE CLEAR Mixed Berry 8oz Carton PO SCH ×3 (09:11→18:04)
[2022-08-20] MEDS: SODIUM CHLOR 0.9% PF (SALINE LOCK) 10ML VIAL/SYR IV SCH ×2 (09:39→21:34)
[2022-08-20] MEDS: CARVEDILOL 3.125 MG TAB PO SCH ×2 (09:43→21:34)
[2022-08-20] MEDS ORDERED: SODIUM CHL 0.9% 1000 ML BAG XX ONE (09:45)
[2022-08-20] MEDS: ASPirin 81 mg TAB PO SCH (09:49)
[2022-08-20] MEDS: DIFICID 200 MG TABLET PO SCH ×2 (09:49→21:35)
[2022-08-20] MEDS: FLORASTOR (S. BOULARDII) 250 MG CAP PO SCH ×2 (09:49→21:34)
[2022-08-20 11:39] LABS: Calcium 8.2 mg/dL (8.5-10.1); Magnesium 1.8 mg/dL (1.6-2.6); Potassium 3.7 mmol/L (3.5-5.1)
[2022-08-20 11:46] LABS: Albumin 2.5 g/dL (3.4-5.0); BUN/Creatinine Ratio 22.3; Bilirubin, Total 0.3 mg/dL (0.2-1.0); Phosphorus 1.9 mg/dL (2.5-4.90); Total Protein 5.9 g/dL (6.4-8.2)
[2022-08-20 13:00] VITALS: BP 124/54
[2022-08-20] MEDS ORDERED: SODIUM PHOSP 20MEQ(15MMOL) IN NS 100 ML IV ONE (13:00)
[2022-08-20 17:00] VITALS: BP 164/65
[2022-08-20] MEDS ORDERED: TPN PER PHARMACY IV NR ×9 (20:00)
[2022-08-20 22:00] VITALS: BP 142/50
[2022-08-21 05:00] VITALS: BP 145/55
[2022-08-21] MEDS: ACCU-CHEK COMFORT CURVE STRIP VI SCH ×4 (06:00→17:34)
[2022-08-21] MEDS: LEVOTHYROXINE SODIUM 50 MCG TAB PO SCH (06:40)
[2022-08-21 08:00] VITALS: BP 158/50
[2022-08-21] MEDS: ENSURE CLEAR Mixed Berry 8oz Carton PO SCH ×3 (08:10→18:15)
[2022-08-21 09:50] LABS: Albumin 2.1 g/dL (3.4-5.0); Calcium 7.9 mg/dL (8.5-10.1); Magnesium 2.3 mg/dL (1.6-2.6); Potassium 3.9 mmol/L (3.5-5.1)
[2022-08-21 09:55] LABS: BUN/Creatinine Ratio 22.4; Bilirubin, Total 0.4 mg/dL (0.2-1.0); Phosphorus 4.4 mg/dL (2.5-4.90); Total Protein 5.2 g/dL (6.4-8.2)
[2022-08-21] MEDS: DIFICID 200 MG TABLET PO SCH ×2 (10:42→22:00)
[2022-08-21] MEDS: ASPirin 81 mg TAB PO SCH (10:42)
[2022-08-21] MEDS: SODIUM CHLOR 0.9% PF (SALINE LOCK) 10ML VIAL/SYR IV SCH ×2 (10:42→22:27)
[2022-08-21] MEDS: FLORASTOR (S. BOULARDII) 250 MG CAP PO SCH ×2 (10:43→22:28)
[2022-08-21] MEDS: CARVEDILOL 3.125 MG TAB PO SCH ×2 (10:43→22:28)
[2022-08-21 12:00] VITALS: BP 97/67
[2022-08-21 16:00] VITALS: BP 136/52
[2022-08-21 20:00] VITALS: BP 154/64
[2022-08-21] MEDS ORDERED: TPN PER PHARMACY IV NR ×9 (20:00)
[2022-08-21 22:00] VITALS: BP 154/64
[2022-08-22 05:00] VITALS: BP 160/55
[2022-08-22] MEDS: ACCU-CHEK COMFORT CURVE STRIP VI SCH ×5 (05:45→23:42)
[2022-08-22] MEDS: LEVOTHYROXINE SODIUM 50 MCG TAB PO SCH (06:45)
[2022-08-22 08:00] VITALS: BP 161/54
[2022-08-22] MEDS: ENSURE CLEAR Mixed Berry 8oz Carton PO SCH ×3 (08:00→18:42)
[2022-08-22 09:29] LABS: Albumin 2.2 g/dL (3.4-5.0); Calcium 7.5 mg/dL (8.5-10.1); Magnesium 2.2 mg/dL (1.6-2.6); Potassium 4.5 mmol/L (3.5-5.1)
[2022-08-22 09:34] LABS: BUN/Creatinine Ratio 24.4; Bilirubin, Total 0.5 mg/dL (0.2-1.0); Phosphorus 4.7 mg/dL (2.5-4.90); Total Protein 4.9 g/dL (6.4-8.2)
[2022-08-22] MEDS: DIFICID 200 MG TABLET PO SCH ×2 (10:00→22:00)
[2022-08-22] MEDS: CARVEDILOL 3.125 MG TAB PO SCH ×2 (10:02→22:33)
[2022-08-22] MEDS: ASPirin 81 mg TAB PO SCH (10:02)
[2022-08-22] MEDS: SODIUM CHLOR 0.9% PF (SALINE LOCK) 10ML VIAL/SYR IV SCH ×2 (10:02→22:31)
[2022-08-22] MEDS: FLORASTOR (S. BOULARDII) 250 MG CAP PO SCH ×2 (10:02→22:31)
[2022-08-22 12:00] VITALS: BP 149/53
[2022-08-22 16:00] VITALS: BP 136/48
[2022-08-22 20:00] VITALS: BP 135/50
[2022-08-22] MEDS ORDERED: TPN PER PHARMACY IV NR ×8 (20:00)
[2022-08-22 22:00] VITALS: BP 135/50
[2022-08-23 05:00] VITALS: BP 99/51
[2022-08-23] MEDS: ACCU-CHEK COMFORT CURVE STRIP VI SCH ×4 (05:51→23:26)
[2022-08-23] MEDS: LEVOTHYROXINE SODIUM 50 MCG TAB PO SCH (06:49)
[2022-08-23] MEDS ORDERED: SODIUM CHL 0.9% 1000 ML BAG XX ONE (07:00)
[2022-08-23 08:00] VITALS: BP 154/68
[2022-08-23 09:00] VITALS: BP 154/68
[2022-08-23] MEDS: DIFICID 200 MG TABLET PO SCH ×2 (10:00→22:00)
[2022-08-23] MEDS: CARVEDILOL 3.125 MG TAB PO SCH ×2 (10:14→23:08)
[2022-08-23] MEDS: ASPirin 81 mg TAB PO SCH (10:14)
[2022-08-23] MEDS: FLORASTOR (S. BOULARDII) 250 MG CAP PO SCH ×2 (10:14→23:09)
[2022-08-23] MEDS: SODIUM CHLOR 0.9% PF (SALINE LOCK) 10ML VIAL/SYR IV SCH ×2 (10:21→23:07)
[2022-08-23] MEDS: ENSURE CLEAR Mixed Berry 8oz Carton PO SCH ×2 (10:22→12:00)
[2022-08-23 11:04] LABS: Albumin 2.4 g/dL (3.4-5.0); BUN/Creatinine Ratio 21.4; Calcium 7.9 mg/dL (8.5-10.1); Potassium 3.9 mmol/L (3.5-5.1)
[2022-08-23 11:07] LABS: Bilirubin, Total 0.4 mg/dL (0.2-1.0); Phosphorus 2.5 mg/dL (2.5-4.90); Total Protein 5.3 g/dL (6.4-8.2)
[2022-08-23 13:00] VITALS: BP 129/48
[2022-08-23 17:00] VITALS: BP 170/53
[2022-08-23 19:21] LABS: Albumin 2.6 g/dL (3.4-5.0); BUN/Creatinine Ratio 21.7
[2022-08-23 19:24] LABS: Bilirubin, Total 0.4 mg/dL (0.2-1.0); Total Protein 5.9 g/dL (6.4-8.2)
[2022-08-23 19:55] LABS: Hematocrit 24.4 % (41.0-53.0); Hemoglobin 8.1 g/dL (13.5-17.5); Mean Corpuscular Hemoglobin 31.4 pg (28.0-32.0); Mean Corpuscular Hgb Conc. 33.4 g/dL (32.0-36.0); Mean Corpuscular Volume 93.9 fL (80.0-100.0); White Blood Cell 5.8 10^3/uL (4.4-10.8)
[2022-08-23 20:00] LABS: Band Neutrophils % (manual) 0; Basophils % (manual) 0 (0.0-2.0); Blast Cells 0; Metamyelocytes % 0; Myelocytes % 0; Promyelocytes % 0; Red Cell Distribution Width 20.2 % (11.8-14.3)
[2022-08-23] MEDS ORDERED: TPN PER PHARMACY IV NR ×10 (20:00)
[2022-08-23] MEDS ORDERED: EPOETIN ALFA-EPBX 10,000 UNIT/1ML VIAL SC ONE (21:00)
[2022-08-23 21:17] LABS: Eosinophils % (manual) 2 (0-7); Lymphocytes % (manual) 7 (10.0-50.0); Monocytes % (manual) 7 (0-12); Reactive Lymphocytes 2
[2022-08-24] MEDS: ACCU-CHEK COMFORT CURVE STRIP VI SCH ×2 (05:53→13:04)
[2022-08-24] MEDS: LEVOTHYROXINE SODIUM 50 MCG TAB PO SCH (06:55)
[2022-08-24 09:00] VITALS: BP 125/53
[2022-08-24] MEDS: SODIUM CHLOR 0.9% PF (SALINE LOCK) 10ML VIAL/SYR IV SCH ×2 (09:55→21:33)
[2022-08-24] MEDS: ASPirin 81 mg TAB PO SCH (09:55)
[2022-08-24] MEDS: FLORASTOR (S. BOULARDII) 250 MG CAP PO SCH ×2 (09:56→21:34)
[2022-08-24] MEDS: CARVEDILOL 3.125 MG TAB PO SCH ×2 (09:57→21:34)
[2022-08-24] MEDS: DIFICID 200 MG TABLET PO SCH ×2 (10:00→21:33)
[2022-08-24 11:11] LABS: Calcium 7.5 mg/dL (8.5-10.1); Potassium 4.2 mmol/L (3.5-5.1)
[2022-08-24 11:16] LABS: Albumin 2.3 g/dL (3.4-5.0); BUN/Creatinine Ratio 22.9; Bilirubin, Total 0.5 mg/dL (0.2-1.0); Magnesium 2.2 mg/dL (1.6-2.6); Phosphorus 5.1 mg/dL (2.5-4.90); Total Protein 5.2 g/dL (6.4-8.2)
[2022-08-24 13:00] VITALS: BP 128/48
[2022-08-24 17:00] VITALS: BP 129/44
[2022-08-24 21:50] VITALS: BP 155/66
[2022-08-25] MEDS: ACCU-CHEK COMFORT CURVE STRIP VI SCH ×3 (06:00→12:00)
[2022-08-25] MEDS: LEVOTHYROXINE SODIUM 50 MCG TAB PO SCH (06:59)
[2022-08-25] MEDS ORDERED: SODIUM CHL 0.9% 1000 ML BAG XX ONE (07:00)
[2022-08-25 08:45] VITALS: BP 129/48
[2022-08-25] MEDS: DIFICID 200 MG TABLET PO SCH ×2 (10:00→22:00)
[2022-08-25 13:00] VITALS: BP 156/57
[2022-08-25] MEDS: SODIUM CHLOR 0.9% PF (SALINE LOCK) 10ML VIAL/SYR IV SCH ×2 (16:25→22:40)
[2022-08-25] MEDS: ASPirin 81 mg TAB PO SCH (16:27)
[2022-08-25] MEDS: CARVEDILOL 3.125 MG TAB PO SCH ×2 (16:27→22:40)
[2022-08-25] MEDS: FLORASTOR (S. BOULARDII) 250 MG CAP PO SCH ×2 (16:28→22:41)
[2022-08-25 16:48] VITALS: BP 153/57
[2022-08-25] MEDS ORDERED: EPOETIN ALFA-EPBX 10,000 UNIT/1ML VIAL SC ONE (21:00)
[2022-08-25 22:00] VITALS: BP 138/63
[2022-08-26 05:00] VITALS: BP 133/69
[2022-08-26] MEDS: ACCU-CHEK COMFORT CURVE STRIP VI SCH ×2 (06:00)
[2022-08-26] MEDS: LEVOTHYROXINE SODIUM 50 MCG TAB PO SCH (06:50)
[2022-08-26 09:00] VITALS: BP 151/57
[2022-08-26] MEDS: SODIUM CHLOR 0.9% PF (SALINE LOCK) 10ML VIAL/SYR IV SCH ×2 (09:59→22:00)
[2022-08-26] MEDS: ASPirin 81 mg TAB PO SCH (09:59)
[2022-08-26] MEDS: FLORASTOR (S. BOULARDII) 250 MG CAP PO SCH ×2 (09:59→22:59)
[2022-08-26] MEDS: CARVEDILOL 3.125 MG TAB PO SCH ×2 (09:59→22:58)
[2022-08-26] MEDS: DIFICID 200 MG TABLET PO SCH ×2 (10:00→22:00)
[2022-08-26 13:00] VITALS: BP 105/57
[2022-08-26 17:00] VITALS: BP 129/57
[2022-08-26 20:00] VITALS: BP 154/79
[2022-08-26 22:00] VITALS: BP 154/71
[2022-08-27] VITALS (7 sets, daily range): BP systolic 132–152; BP diastolic 54–89
[2022-08-27] MEDS: ACCU-CHEK COMFORT CURVE STRIP VI SCH ×3 (06:00→17:07)
[2022-08-27] MEDS ORDERED: SODIUM CHL 0.9% 1000 ML BAG XX ONE (07:00)
[2022-08-27] MEDS: DIFICID 200 MG TABLET PO SCH (10:00)
[2022-08-27] MEDS: CARVEDILOL 3.125 MG TAB PO SCH ×2 (10:00→21:20)
[2022-08-27 13:24] LABS: BUN/Creatinine Ratio 17.6; Potassium 4.2 mmol/L (3.5-5.1)
[2022-08-27] MEDS: SODIUM CHLOR 0.9% PF (SALINE LOCK) 10ML VIAL/SYR IV SCH ×2 (16:47→21:15)
[2022-08-27] MEDS ORDERED: EPOETIN ALFA-EPBX 10,000 UNIT/1ML VIAL SC ONE (21:00)
[2022-08-28 05:00] VITALS: BP 140/81
[2022-08-28] MEDS: ACCU-CHEK COMFORT CURVE STRIP VI SCH ×5 (05:12→23:55)
[2022-08-28 08:00] VITALS: BP 123/72
[2022-08-28 08:42] VITALS: BP 133/55
[2022-08-28] MEDS: ENSURE CLEAR Mixed Berry 8oz Carton PO SCH ×3 (08:52→17:05)
[2022-08-28] MEDS: SODIUM CHLOR 0.9% PF (SALINE LOCK) 10ML VIAL/SYR IV SCH ×2 (10:32→22:19)
[2022-08-28] MEDS: CARVEDILOL 3.125 MG TAB PO SCH (10:33)
[2022-08-28 12:30] VITALS: BP 97/49
[2022-08-28 17:04] VITALS: BP 144/69
[2022-08-28 22:00] VITALS: BP 169/74
[2022-08-28] MEDS ORDERED: CARVEDILOL 3.125 MG TAB PO ONE (23:00)
[2022-08-29 05:00] VITALS: BP 156/68
[2022-08-29] MEDS: ACCU-CHEK COMFORT CURVE STRIP VI SCH ×3 (05:46→18:00)
[2022-08-29 08:30] VITALS: BP 151/70
[2022-08-29] MEDS: ENSURE CLEAR Mixed Berry 8oz Carton PO SCH ×3 (09:47→18:08)
[2022-08-29] MEDS: CARVEDILOL 3.125 MG TAB PO SCH ×2 (10:00→21:53)
[2022-08-29] MEDS ORDERED: SODIUM CHL 0.9% 1000 ML BAG XX ONE (11:00)
[2022-08-29 12:51] VITALS: BP 133/62
[2022-08-29 16:34] VITALS: BP 155/65
[2022-08-29 22:00] VITALS: BP 148/53
[2022-08-30 05:00] VITALS: BP 133/63
[2022-08-30] MEDS: ACCU-CHEK COMFORT CURVE STRIP VI SCH ×4 (05:50→18:00)
[2022-08-30 09:11] VITALS: BP 140/65
[2022-08-30] MEDS: ENSURE CLEAR Mixed Berry 8oz Carton PO SCH ×3 (11:54→19:29)
[2022-08-30] MEDS: ZINC SULFATE 220mg CAP or TAB PO SCH (11:54)
[2022-08-30] MEDS: DIFICID 200 MG TABLET PO SCH ×2 (11:54→21:41)
[2022-08-30] MEDS: MULTIPLE VITAMIN TAB PO SCH (11:55)
[2022-08-30] MEDS: ASCORBIC ACID 500 MG TAB PO SCH ×2 (11:55→21:41)
[2022-08-30] MEDS: CHOLECALCIFEROL (VITD3) 2,000 UNIT CAP/TAB PO SCH (11:55)
[2022-08-30] MEDS: CARVEDILOL 3.125 MG TAB PO SCH ×2 (11:55→21:42)
[2022-08-30 12:28] VITALS: BP 137/63
[2022-08-30 16:44] VITALS: BP 152/67
[2022-08-30 20:00] VITALS: BP 152/66
[2022-08-30 23:19] VITALS: BP 152/66
[2022-08-31 05:37] VITALS: BP 157/63
[2022-08-31] MEDS: ACCU-CHEK COMFORT CURVE STRIP VI SCH ×2 (06:00)
[2022-08-31] MEDS ORDERED: SODIUM CHL 0.9% 1000 ML BAG XX ONE (07:00)
[2022-08-31 08:56] VITALS: BP 129/66
[2022-08-31] MEDS: DIFICID 200 MG TABLET PO SCH ×2 (09:47→21:52)
[2022-08-31] MEDS: ZINC SULFATE 220mg CAP or TAB PO SCH (09:47)
[2022-08-31] MEDS: CHOLECALCIFEROL (VITD3) 2,000 UNIT CAP/TAB PO SCH (09:48)
[2022-08-31] MEDS: MULTIPLE VITAMIN TAB PO SCH (09:48)
[2022-08-31] MEDS: ASCORBIC ACID 500 MG TAB PO SCH ×2 (09:48→21:51)
[2022-08-31] MEDS: CARVEDILOL 3.125 MG TAB PO SCH ×2 (09:49→21:53)
[2022-08-31 12:56] VITALS: BP 154/67
[2022-08-31 13:25] LABS: Hematocrit 25.9 % (41.0-53.0); Hemoglobin 8.5 g/dL (13.5-17.5); Mean Corpuscular Hemoglobin 29.9 pg (28.0-32.0); Mean Corpuscular Hgb Conc. 32.6 g/dL (32.0-36.0); Mean Corpuscular Volume 91.7 fL (80.0-100.0); Red Blood Cells 2.83 10^6/uL (4.5-5.90); White Blood Cell 5.8 10^3/uL (4.4-10.8)
[2022-08-31 13:48] LABS: Albumin 2.3 g/dL (3.4-5.0); Band Neutrophils % (manual) 0; Blast Cells 0; Calcium 7.3 mg/dL (8.5-10.1); Metamyelocytes % 0; Myelocytes % 0; Potassium 3.1 mmol/L (3.5-5.1); Promyelocytes % 0; Reactive Lymphocytes 0
[2022-08-31 13:51] LABS: BUN/Creatinine Ratio 12.3; Bilirubin, Total 0.4 mg/dL (0.2-1.0); Total Protein 5.4 g/dL (6.4-8.2)
[2022-08-31 13:52] LABS: % Iron Saturation 9.2 % (20-55)
[2022-08-31 14:38] LABS: Basophils % (manual) 2 (0.0-2.0); Eosinophils % (manual) 8 (0-7); Lymphocytes % (manual) 22 (10.0-50.0); Monocytes % (manual) 2 (0-12)
[2022-08-31] MEDS ORDERED: IRON SUCROSE COMPLEX 200 MG in SODIUM CHL 0.9% 100 ML IV SCH (16:00)
[2022-08-31 17:00] VITALS: BP 152/70
[2022-08-31 20:00] VITALS: BP 152/66
[2022-08-31] MEDS ORDERED: EPOETIN ALFA-EPBX 10,000 UNIT/1ML VIAL SC ONE (21:00)
[2022-08-31 22:00] VITALS: BP 163/66
[2022-09-01] VITALS (7 sets, daily range): BP systolic 136–159; BP diastolic 50–66
[2022-09-01] MEDS: ZINC SULFATE 220mg CAP or TAB PO SCH (10:22)
[2022-09-01] MEDS: DIFICID 200 MG TABLET PO SCH ×2 (10:22→22:13)
[2022-09-01] MEDS: ASCORBIC ACID 500 MG TAB PO SCH ×2 (10:22→22:12)
[2022-09-01] MEDS: MULTIPLE VITAMIN TAB PO SCH (10:22)
[2022-09-01] MEDS: CHOLECALCIFEROL (VITD3) 2,000 UNIT CAP/TAB PO SCH (10:22)
[2022-09-01] MEDS: CARVEDILOL 3.125 MG TAB PO SCH ×2 (10:23→22:13)
[2022-09-01] MEDS: SODIUM FERR GLUC 62.5MG/5ML 125 MG in SODIUM CHL 0.9% 100 ML IV SCH (12:49)
[2022-09-02 05:00] VITALS: BP 147/67
[2022-09-02 08:00] VITALS: BP 144/79
[2022-09-02 08:15] VITALS: BP 144/79
[2022-09-02] MEDS: CHOLECALCIFEROL (VITD3) 2,000 UNIT CAP/TAB PO SCH (10:18)
[2022-09-02] MEDS: ZINC SULFATE 220mg CAP or TAB PO SCH (10:18)
[2022-09-02] MEDS: ASCORBIC ACID 500 MG TAB PO SCH ×2 (10:18→21:46)
[2022-09-02] MEDS: MULTIPLE VITAMIN TAB PO SCH (10:19)
[2022-09-02] MEDS: CARVEDILOL 3.125 MG TAB PO SCH ×2 (10:19→21:45)
[2022-09-02] MEDS: DIFICID 200 MG TABLET PO SCH ×2 (10:19→21:46)
[2022-09-02 12:20] VITALS: BP 140/58
[2022-09-02] MEDS: SODIUM FERR GLUC 62.5MG/5ML 125 MG in SODIUM CHL 0.9% 100 ML IV SCH (12:27)
[2022-09-02] MEDS: LOPERAMIDE HCL 2 MG CAP/TAB PO PRN ×2 (12:27→21:37)
[2022-09-02 16:15] VITALS: BP 134/54
[2022-09-02 22:00] VITALS: BP 164/66
[2022-09-03 05:00] VITALS: BP 121/61
[2022-09-03 08:53] VITALS: BP 134/48
[2022-09-03] MEDS: CHOLECALCIFEROL (VITD3) 2,000 UNIT CAP/TAB PO SCH (11:12)
[2022-09-03] MEDS: MULTIPLE VITAMIN TAB PO SCH (11:12)
[2022-09-03] MEDS: ZINC SULFATE 220mg CAP or TAB PO SCH (11:12)
[2022-09-03] MEDS: ASCORBIC ACID 500 MG TAB PO SCH ×2 (11:13→22:18)
[2022-09-03] MEDS: CARVEDILOL 3.125 MG TAB PO SCH ×2 (11:16→22:19)
[2022-09-03] MEDS: DIFICID 200 MG TABLET PO SCH ×2 (11:17→22:18)
[2022-09-03 13:00] VITALS: BP 144/63
[2022-09-03] MEDS: SODIUM FERR GLUC 62.5MG/5ML 125 MG in SODIUM CHL 0.9% 100 ML IV SCH (13:20)
[2022-09-03 17:01] VITALS: BP 147/71
[2022-09-03 22:00] VITALS: BP 159/60
[2022-09-04 05:00] VITALS: BP 152/58
[2022-09-04 09:00] VITALS: BP 126/62
[2022-09-04] MEDS: ASCORBIC ACID 500 MG TAB PO SCH ×2 (09:35→22:19)
[2022-09-04] MEDS: LOPERAMIDE HCL 2 MG CAP/TAB PO PRN (09:35)
[2022-09-04] MEDS: ZINC SULFATE 220mg CAP or TAB PO SCH (09:35)
[2022-09-04] MEDS: CHOLECALCIFEROL (VITD3) 2,000 UNIT CAP/TAB PO SCH (09:35)
[2022-09-04] MEDS: MULTIPLE VITAMIN TAB PO SCH (09:36)
[2022-09-04] MEDS: CARVEDILOL 3.125 MG TAB PO SCH ×2 (09:36→22:19)
[2022-09-04] MEDS: DIFICID 200 MG TABLET PO SCH ×2 (09:37→22:19)
[2022-09-04 13:00] VITALS: BP 136/56
[2022-09-04] MEDS: SODIUM FERR GLUC 62.5MG/5ML 125 MG in SODIUM CHL 0.9% 100 ML IV SCH (13:33)
[2022-09-04 17:00] VITALS: BP 165/60
[2022-09-04 22:00] VITALS: BP 157/70
[2022-09-05 05:00] VITALS: BP 149/55
[2022-09-05] MEDS ORDERED: SODIUM CHL 0.9% 1000 ML BAG XX ONE (07:00)
[2022-09-05 09:18] VITALS: BP 143/66
[2022-09-05] MEDS: CARVEDILOL 3.125 MG TAB PO SCH ×2 (09:29→22:33)
[2022-09-05] MEDS: ZINC SULFATE 220mg CAP or TAB PO SCH (09:29)
[2022-09-05] MEDS: DIFICID 200 MG TABLET PO SCH ×2 (09:29→22:32)
[2022-09-05] MEDS: MULTIPLE VITAMIN TAB PO SCH (09:30)
[2022-09-05] MEDS: ASCORBIC ACID 500 MG TAB PO SCH ×2 (09:30→22:33)
[2022-09-05] MEDS: CHOLECALCIFEROL (VITD3) 2,000 UNIT CAP/TAB PO SCH (09:30)
[2022-09-05] MEDS: SODIUM FERR GLUC 62.5MG/5ML 125 MG in SODIUM CHL 0.9% 100 ML IV SCH (12:00)
[2022-09-05 12:38] VITALS: BP 144/64
[2022-09-05] MEDS ORDERED: diphenhdrAMINE HCL 25 MG CAP PO PRN (15:00)
[2022-09-05] MEDS ORDERED: ACETAMINOPHEN 325 MG TAB PO PRN (15:00)
[2022-09-05 16:15] VITALS: BP 160/72
[2022-09-05] MEDS ORDERED: EPOETIN ALFA-EPBX 10,000 UNIT/1ML VIAL SC ONE (21:00)
[2022-09-05 22:00] VITALS: BP 159/56
[2022-09-06 05:00] VITALS: BP 133/45
[2022-09-06 08:59] VITALS: BP 129/49
[2022-09-06] MEDS: DIFICID 200 MG TABLET PO SCH (09:33)
[2022-09-06] MEDS: CARVEDILOL 3.125 MG TAB PO SCH (09:34)
[2022-09-06] MEDS: MULTIPLE VITAMIN TAB PO SCH (09:34)
[2022-09-06] MEDS: ASCORBIC ACID 500 MG TAB PO SCH (09:34)
[2022-09-06] MEDS: CHOLECALCIFEROL (VITD3) 2,000 UNIT CAP/TAB PO SCH (09:34)
[2022-09-06] MEDS: ZINC SULFATE 220mg CAP or TAB PO SCH (09:34)
[2022-09-06 12:32] VITALS: BP 128/57
[2022-09-06] MEDS: SODIUM FERR GLUC 62.5MG/5ML 125 MG in SODIUM CHL 0.9% 100 ML IV SCH (13:44)
[2022-09-06 16:28] VITALS: BP 139/51
[2022-09-07] MEDS ORDERED: SODIUM CHL 0.9% 1000 ML BAG XX ONE (07:00)
[2022-09-07] MEDS ORDERED: EPOETIN ALFA-EPBX 10,000 UNIT/1ML VIAL SC ONE (21:00)
== END 2022-09-06 20:22 | DRG 371 ==
LOC: EDBD 18:30 → ER 18:32 → OVERFLOW 07-27 02:55 → EAST 07-27 17:56
PROVIDERS: ADMIT Nurse Practitioner; ATTEND Internal Medicine Pulmonary Disease
PROC: 5A1D70Z Performance of Urinary Filtration, Intermittent, Less than 6 Hours Per Day (ICD-10-PCS; 2022-07-24)
PROC: 06HM33Z Insertion of Infusion Device into Right Femoral Vein, Percutaneous Approach (ICD-10-PCS; 2022-07-27)
PROC: 5A1D70Z Performance of Urinary Filtration, Intermittent, Less than 6 Hours Per Day (ICD-10-PCS; 2022-07-29)
PROC: 02HV33Z Insertion of Infusion Device into Superior Vena Cava, Percutaneous Approach (ICD-10-PCS; 2022-07-29)
PROC: B548ZZA Ultrasonography of Superior Vena Cava, Guidance (ICD-10-PCS; 2022-07-29)
PROC: 5A1D70Z Performance of Urinary Filtration, Intermittent, Less than 6 Hours Per Day (ICD-10-PCS; 2022-07-31)
PROC: 5A1D70Z Performance of Urinary Filtration, Intermittent, Less than 6 Hours Per Day (ICD-10-PCS; 2022-08-03)
PROC: 5A1D70Z Performance of Urinary Filtration, Intermittent, Less than 6 Hours Per Day (ICD-10-PCS; 2022-08-08)
PROC: 5A1D70Z Performance of Urinary Filtration, Intermittent, Less than 6 Hours Per Day (ICD-10-PCS; 2022-08-15)
PROC: 5A1D70Z Performance of Urinary Filtration, Intermittent, Less than 6 Hours Per Day (ICD-10-PCS; 2022-08-17)
PROC: 5A1D70Z Performance of Urinary Filtration, Intermittent, Less than 6 Hours Per Day (ICD-10-PCS; 2022-08-20)
PROC: 5A1D70Z Performance of Urinary Filtration, Intermittent, Less than 6 Hours Per Day (ICD-10-PCS; 2022-08-23)
PROC: 5A1D70Z Performance of Urinary Filtration, Intermittent, Less than 6 Hours Per Day (ICD-10-PCS; 2022-08-25)
PROC: 5A1D70Z Performance of Urinary Filtration, Intermittent, Less than 6 Hours Per Day (ICD-10-PCS; 2022-08-27)
PROC: 5A1D70Z Performance of Urinary Filtration, Intermittent, Less than 6 Hours Per Day (ICD-10-PCS; 2022-08-29)
PROC: 5A1D70Z Performance of Urinary Filtration, Intermittent, Less than 6 Hours Per Day (ICD-10-PCS; 2022-08-31)
PROC: 5A1D70Z Performance of Urinary Filtration, Intermittent, Less than 6 Hours Per Day (ICD-10-PCS; 2022-09-02)
PROC: 5A1D70Z Performance of Urinary Filtration, Intermittent, Less than 6 Hours Per Day (ICD-10-PCS; principal; 2022-09-05)
DX: A04.71 Enterocolitis due to Clostridium difficile, recurrent (principal); E43 Unspecified severe protein-calorie malnutrition; N18.6 End stage renal disease; U07.1 COVID-19; Z68.1 Body mass index [BMI] 19.9 or less, adult; I12.0 Hypertensive chronic kidney disease with stage 5 chronic kidney disease or end stage renal disease; D63.1 Anemia in chronic kidney disease; E03.9 Hypothyroidism, unspecified; E78.5 Hyperlipidemia, unspecified; B95.5 Unspecified streptococcus as the cause of diseases classified elsewhere; L89.150 Pressure ulcer of sacral region, unstageable; E87.6 Hypokalemia; K21.9 Gastro-esophageal reflux disease without esophagitis; E61.1 Iron deficiency; Z99.2 Dependence on renal dialysis; Z86.19 Personal history of other infectious and parasitic diseases; Z91.15 Patient's noncompliance with renal dialysis
CPT/HCPCS: 36415; 36569; 71045; 74021; 74176; 80048; 80053; 80069; 80202; 82150; 82248; 82270; 82728; 82962; 83540; 83550; 83605; 83690; 83735; 84100; 84478; 84484; 84550; 85007; 85014; 85018; 85025; 85027; 85048; 85610; 85730; 86850; 86900; 86901; 87040; 87045; 87077; 87081; 87177; 87186; 87340; 87426; 87427; 87493; 87804; 90935; 96365; 96366; G0378; J0696; J1642; J1756; J1815; J2405; J3480; J3490; J7131

== ENCOUNTER 2022-12-12 13:24 | Inpatient (IN) | payer MEDICARE, MEDICAID ==
[~2022-12-12] VITALS: Ht 185.4 cm; Wt 87.2 kg
[2022-12-12 14:28] LABS: Basophils # (auto) 0 10 ^3/uL (0-0.2); Basophils % (auto) 0.6 % (0.0-2.0); Eosinophils # (auto) 0 10 ^3/uL (0-0.8); Eosinophils % (auto) 0.2 % (0.0-7.0); Hematocrit 43.4 % (41.0-53.0); Hemoglobin 13.5 g/dL (13.5-17.5); Lymphocytes # (auto) 1.7 10 ^3/uL (0.4-5.4); Lymphocytes % (auto) 24.1 % (10.0-50.0); Mean Corpuscular Hemoglobin 30.1 pg (28.0-32.0); Mean Corpuscular Hgb Conc. 31.2 g/dL (32.0-36.0); Mean Corpuscular Volume 96.6 fL (80.0-100.0); Monocytes # (auto) 0.5 10 ^3/uL (0-1.3); Monocytes % (auto) 7.4 % (0.0-12.0); Neutrophils # (auto) 4.9 10 ^3/uL (1.6-8.6); Neutrophils % (auto) 67.7 % (37.0-80.0); Nucleated Red Blood Cells % 0.6 %; White Blood Cell 7.2 10^3/uL (4.4-10.8)
[2022-12-12 14:37] LABS: Red Cell Distribution Width 20.6 % (11.8-14.3)
[2022-12-12 14:56] LABS: Alkaline Phosphatase 95 U/L (45-117); Anion Gap 13 (5-15); Aspartate Aminotransferase 33 U/L (15-37); BUN/Creatinine Ratio 12.8 (10.0-20.0); Blood Urea Nitrogen 65 mg/dL (7-18); Carbon Dioxide 14 mmol/L (21-32); Chloride 109 mmol/L (98-107); GFR African American 15 mL/min; GFR Non-African American 12 mL/min; Glucose 129 mg/dL (74-106); Sodium 136 mmol/L (136-145)
[2022-12-12 14:57] LABS: Alanine Aminotransferase 36 U/L (16-61); Albumin 2.1 g/dL (3.4-5.0); Bilirubin, Total 0.8 mg/dL (0.2-1.0); Total Protein 5.3 g/dL (6.4-8.2)
[2022-12-12 15:00] LABS: Potassium 6.1 mmol/L (3.5-5.1)
[2022-12-12] MEDS ORDERED: SODIUM BICARBONATE 8.4% INJ 50ML SYRINGE IV ONE (15:15)
[2022-12-12] MEDS ORDERED: CALCIUM GLUC 1,000mg/50ml-NS 50 ML IV ONE (15:15)
[2022-12-12] MEDS ORDERED: FUROSEMIDE 20 MG/2 ML VIAL IV ONE (15:15)
[2022-12-12] MEDS ORDERED: ALBUTEROL SULF 2.5 MG/0.5ML(0.5%) NEB SOLN NEB ONE (15:15)
[2022-12-12] MEDS ORDERED: DEXTROSE (50%) 50ML SYRG IV ONE (15:15)
[2022-12-12] MEDS ORDERED: SODIUM ZIRCONIUM CYCL 10 GM PAK PO ONE (15:15)
[2022-12-12] MEDS ORDERED: InsuLIN REG 1unit/0.01ml Soln (100units/ml) IV ONE (15:15)
[2022-12-12] MEDS ORDERED: DEXTROSE 10% 250 ML IV ONE (16:59)
[2022-12-12] MEDS ORDERED: ONDANSETRON HCL 4 MG/2 ML VIAL IV PRN (18:15)
[2022-12-12] MEDS ORDERED: DEXTROSE (50%) 50ML SYRG IV PRN (18:15)
[2022-12-12] MEDS ORDERED: ALBUTEROL SULF 2.5 MG/0.5ML(0.5%) NEB SOLN NEB PRN (18:15)
[2022-12-12] MEDS ORDERED: ACETAMINOPHEN 325 MG TAB PO PRN ×2 (18:15)
[2022-12-12] MEDS ORDERED: NITROGLYCERIN 0.4 MG SL TAB SL PRN (18:15)
[2022-12-12] MEDS ORDERED: FUROSEMIDE 40 MG/4 ML VIAL IV ONE (18:30)
[2022-12-12] MEDS ORDERED: MORPHINE SULFATE INJ 2 MG/ml SYRG IV PRN (19:30)
[2022-12-12] MEDS ORDERED: ENOXAPARIN SOD 100 MG/1 ML SYRINGE SC ONE (19:30)
[2022-12-12 20:05] LABS: Potassium 5.4 mmol/L (3.5-5.1)
[2022-12-12 21:13] LABS: INR 1.49 (0.9-1.15); Partial Thromboplastin Time 31.2 sec (24.6-33.4)
[2022-12-12 21:21] VITALS: BP 147/71
[2022-12-12] MEDS: InsuLIN REG 1unit/0.01ml Soln (100units/ml) SC SCH (22:00)
[2022-12-12] MEDS: ACCU-CHEK COMFORT CURVE STRIP VI SCH (22:03)
[2022-12-12] MEDS: TAMSULOSIN HYDROCHLORIDE 0.4 MG CAP PO SCH (22:33)
[2022-12-12] MEDS: CARVEDILOL 12.5 MG TAB PO SCH (22:35)
[2022-12-12] MEDS: ATORVASTATIN 20 MG TAB PO SCH (22:36)
[2022-12-13 00:23] LABS: BUN/Creatinine Ratio 13.9 (10.0-20.0); Potassium 5.3 mmol/L (3.5-5.1)
[2022-12-13 05:46] LABS: Basophils # (auto) 0 10 ^3/uL (0-0.2); Basophils % (auto) 0.6 % (0.0-2.0); Eosinophils # (auto) 0.1 10 ^3/uL (0-0.8); Eosinophils % (auto) 0.8 % (0.0-7.0); Hematocrit 37.3 % (41.0-53.0); Hemoglobin 12.2 g/dL (13.5-17.5); Lymphocytes # (auto) 1.3 10 ^3/uL (0.4-5.4); Lymphocytes % (auto) 15.7 % (10.0-50.0); Mean Corpuscular Hemoglobin 30.4 pg (28.0-32.0); Mean Corpuscular Hgb Conc. 32.6 g/dL (32.0-36.0); Mean Corpuscular Volume 93.1 fL (80.0-100.0); Monocytes # (auto) 0.5 10 ^3/uL (0-1.3); Monocytes % (auto) 5.9 % (0.0-12.0); Neutrophils # (auto) 6.1 10 ^3/uL (1.6-8.6); Nucleated Red Blood Cells % 0.1 %; Red Blood Cells 4.01 10^6/uL (4.5-5.90); Red Cell Distribution Width 19.4 % (11.8-14.3)
[2022-12-13] MEDS ORDERED: FUROSEMIDE 40 MG/4 ML VIAL IV SCH (06:00)
[2022-12-13 06:05] LABS: Albumin 2.2 g/dL (3.4-5.0); Calcium 7.6 mg/dL (8.5-10.1); Potassium 5.1 mmol/L (3.5-5.1)
[2022-12-13 06:10] LABS: BUN/Creatinine Ratio 13.2 (10.0-20.0); Bilirubin, Total 0.8 mg/dL (0.2-1.0)
[2022-12-13] MEDS: InsuLIN REG 1unit/0.01ml Soln (100units/ml) SC SCH ×4 (06:47→22:32)
[2022-12-13] MEDS: ACCU-CHEK COMFORT CURVE STRIP VI SCH ×4 (06:47→22:29)
[2022-12-13] MEDS ORDERED: LEVOTHYROXINE SODIUM 50 MCG TAB PO SCH (07:00)
[2022-12-13] MEDS: ASPirin-EC 81 mg tab PO SCH (09:54)
[2022-12-13] MEDS: CARVEDILOL 12.5 MG TAB PO SCH ×2 (09:54→22:27)
[2022-12-13] MEDS: FERROUS SULFATE 325mg EC TAB PO SCH (09:54)
[2022-12-13] MEDS ORDERED: [UNRECOGNIZED DRUG - OTHER] OR SCH (10:00)
[2022-12-13] MEDS: SODIUM ZIRCONIUM CYCL 10 GM PAK PO SCH ×2 (10:44→22:32)
[2022-12-13] MEDS: APIXABAN 2.5 MG TAB PO SCH ×2 (11:08→22:28)
[2022-12-13] MEDS ORDERED: HEPARIN SODIUM (PORCINE) 5000 UNITS/ML 1ML VIAL SC SCH (19:00)
[2022-12-13 22:00] VITALS: BP 136/67
[2022-12-13] MEDS: NYSTATIN TOPICAL POWDER 15GM TOP SCH (22:00)
[2022-12-13] MEDS: ATORVASTATIN 20 MG TAB PO SCH (22:28)
[2022-12-13] MEDS: TAMSULOSIN HYDROCHLORIDE 0.4 MG CAP PO SCH (22:29)
[2022-12-14] VITALS (12 sets, daily range): BP systolic 108–173; BP diastolic 62–90
[2022-12-14] MEDS: SODIUM ZIRCONIUM CYCL 10 GM PAK PO SCH (05:27)
[2022-12-14] MEDS: ACCU-CHEK COMFORT CURVE STRIP VI SCH ×4 (06:26→21:14)
[2022-12-14] MEDS: InsuLIN REG 1unit/0.01ml Soln (100units/ml) SC SCH ×4 (06:26→21:14)
[2022-12-14] MEDS: LEVOTHYROXINE SODIUM 100 MCG TAB PO SCH (06:27)
[2022-12-14] MEDS ORDERED: SODIUM CHL 0.9% 1000 ML BAG XX ONE (07:00)
[2022-12-14 09:13] LABS: Basophils # (auto) 0.1 10 ^3/uL (0-0.2); Basophils % (auto) 1.1 % (0.0-2.0); Eosinophils # (auto) 0.2 10 ^3/uL (0-0.8); Eosinophils % (auto) 3.3 % (0.0-7.0); Hematocrit 31.5 % (41.0-53.0); Hemoglobin 10.4 g/dL (13.5-17.5); Lymphocytes % (auto) 22.2 % (10.0-50.0); Mean Corpuscular Hemoglobin 30.8 pg (28.0-32.0); Mean Corpuscular Volume 93.4 fL (80.0-100.0); Monocytes # (auto) 0.3 10 ^3/uL (0-1.3); Monocytes % (auto) 6.1 % (0.0-12.0); Neutrophils # (auto) 3.1 10 ^3/uL (1.6-8.6); Neutrophils % (auto) 67.3 % (37.0-80.0); Nucleated Red Blood Cells % 0.1 %; Red Blood Cells 3.37 10^6/uL (4.5-5.90); Red Cell Distribution Width 19.4 % (11.8-14.3); White Blood Cell 4.6 10^3/uL (4.4-10.8)
[2022-12-14 09:45] LABS: BUN/Creatinine Ratio 12.9 (10.0-20.0); Calcium 7.3 mg/dL (8.5-10.1)
[2022-12-14] MEDS: CARVEDILOL 12.5 MG TAB PO SCH ×2 (09:50→21:13)
[2022-12-14] MEDS: FERROUS SULFATE 325mg EC TAB PO SCH (09:50)
[2022-12-14] MEDS: ASPirin-EC 81 mg tab PO SCH (09:50)
[2022-12-14] MEDS: NYSTATIN TOPICAL POWDER 15GM TOP SCH ×2 (09:53→22:00)
[2022-12-14] MEDS: APIXABAN 2.5 MG TAB PO SCH (09:53)
[2022-12-14 11:18] LABS: INR 1.27 (0.9-1.15); Partial Thromboplastin Time 32.7 sec (24.6-33.4)
[2022-12-14] MEDS ORDERED: LIDOCAINE 2%HCL (LOCAL ANESTH.) INJ 20ML MDV ONE (12:04)
[2022-12-14] MEDS ORDERED: IODIXANOL 320MG/ML 100ML BTL IV ONE (12:04)
[2022-12-14] MEDS ORDERED: VERAPAMIL 2.5MG/ML INJ 2ML VIAL IV ONE (12:17)
[2022-12-14] MEDS ORDERED: HEPARIN SODIUM (PORCINE) 5000 UNITS/ML 1ML VIAL ONE (12:17)
[2022-12-14] MEDS ORDERED: MIDAZOLAM HCL 2MG/2ML 2ml VIAL (1mg/ml) ONE (12:18)
[2022-12-14] MEDS ORDERED: fentaNYL CITRATE 100 MCG/2 ML VL ONE (12:18)
[2022-12-14] MEDS ORDERED: SODIUM CHL 0.9% 0 ML ONE (12:19)
[2022-12-14] MEDS ORDERED: ANGIOMAX 250 MG VIAL IV ONE (12:43)
[2022-12-14] MEDS ORDERED: CLOPIDOGREL 300 MG TAB ONE (13:41)
[2022-12-14] MEDS ORDERED: HEPARIN DRIP/D5W 100UNITS/ML 250 ML IV SCH (17:30)
[2022-12-14] MEDS ORDERED: HEPARIN SODIUM (PORCINE) 5000 UNITS/ML 1ML VIAL IV ONE (17:30)
[2022-12-14] MEDS ORDERED: WARFARIN SODIUM 5 MG TAB PO ONE (18:00)
[2022-12-14 18:40] LABS: Basophils # (auto) 0 10 ^3/uL (0-0.2); Basophils % (auto) 0.7 % (0.0-2.0); Eosinophils # (auto) 0.2 10 ^3/uL (0-0.8); Eosinophils % (auto) 2.7 % (0.0-7.0); Hematocrit 35.4 % (41.0-53.0); Hemoglobin 11.3 g/dL (13.5-17.5); Lymphocytes # (auto) 1.3 10 ^3/uL (0.4-5.4); Lymphocytes % (auto) 23.3 % (10.0-50.0); Mean Corpuscular Hemoglobin 30.2 pg (28.0-32.0); Mean Corpuscular Hgb Conc. 31.9 g/dL (32.0-36.0); Mean Corpuscular Volume 94.7 fL (80.0-100.0); Monocytes # (auto) 0.4 10 ^3/uL (0-1.3); Monocytes % (auto) 7.3 % (0.0-12.0); Neutrophils # (auto) 3.7 10 ^3/uL (1.6-8.6); Nucleated Red Blood Cells % 0.2 %; Red Blood Cells 3.74 10^6/uL (4.5-5.90); Red Cell Distribution Width 19.4 % (11.8-14.3); White Blood Cell 5.5 10^3/uL (4.4-10.8)
[2022-12-14 19:10] LABS: INR 1.31 (0.9-1.15)
[2022-12-14 19:49] LABS: Partial Thromboplastin Time > 139.0 sec (24.6-33.4)
[2022-12-14] MEDS: ATORVASTATIN 20 MG TAB PO SCH (21:13)
[2022-12-14] MEDS: TAMSULOSIN HYDROCHLORIDE 0.4 MG CAP PO SCH (21:13)
[2022-12-14] MEDS ORDERED: APIXABAN 5 MG TAB PO SCH (22:00)
[2022-12-15] VITALS (7 sets, daily range): BP systolic 108–154; BP diastolic 53–75
[2022-12-15 03:30] LABS: INR 1.29 (0.9-1.15)
[2022-12-15 03:36] LABS: Partial Thromboplastin Time > 139.0 sec (24.6-33.4)
[2022-12-15] MEDS: HEPARIN DRIP/D5W 100UNITS/ML 250 ML IV SCH ×2 (05:33→10:20)
[2022-12-15] MEDS: ACCU-CHEK COMFORT CURVE STRIP VI SCH ×5 (06:28→21:46)
[2022-12-15] MEDS: LEVOTHYROXINE SODIUM 100 MCG TAB PO SCH (06:29)
[2022-12-15] MEDS: InsuLIN REG 1unit/0.01ml Soln (100units/ml) SC SCH ×4 (06:29→21:47)
[2022-12-15 08:50] LABS: Basophils # (auto) 0 10 ^3/uL (0-0.2); Basophils % (auto) 0.9 % (0.0-2.0); Eosinophils # (auto) 0.1 10 ^3/uL (0-0.8); Eosinophils % (auto) 1.9 % (0.0-7.0); Hematocrit 33.2 % (41.0-53.0); Hemoglobin 10.7 g/dL (13.5-17.5); Lymphocytes # (auto) 1.1 10 ^3/uL (0.4-5.4); Lymphocytes % (auto) 21.8 % (10.0-50.0); Mean Corpuscular Hgb Conc. 32.4 g/dL (32.0-36.0); Mean Corpuscular Volume 95.8 fL (80.0-100.0); Monocytes # (auto) 0.3 10 ^3/uL (0-1.3); Monocytes % (auto) 6.4 % (0.0-12.0); Neutrophils # (auto) 3.4 10 ^3/uL (1.6-8.6); Nucleated Red Blood Cells % 0.1 %; Red Blood Cells 3.46 10^6/uL (4.5-5.90); Red Cell Distribution Width 19.2 % (11.8-14.3); White Blood Cell 4.9 10^3/uL (4.4-10.8)
[2022-12-15 09:22] LABS: Basophils # (auto) 0 10 ^3/uL (0-0.2); Basophils % (auto) 0.5 % (0.0-2.0); Eosinophils # (auto) 0.1 10 ^3/uL (0-0.8); Eosinophils % (auto) 1.9 % (0.0-7.0); Hematocrit 34.5 % (41.0-53.0); Lymphocytes # (auto) 1.3 10 ^3/uL (0.4-5.4); Lymphocytes % (auto) 23.1 % (10.0-50.0); Mean Corpuscular Hgb Conc. 31.8 g/dL (32.0-36.0); Mean Corpuscular Volume 97.7 fL (80.0-100.0); Monocytes # (auto) 0.3 10 ^3/uL (0-1.3); Monocytes % (auto) 5.8 % (0.0-12.0); Neutrophils # (auto) 3.9 10 ^3/uL (1.6-8.6); Neutrophils % (auto) 68.7 % (37.0-80.0); Nucleated Red Blood Cells % 0.3 %; Red Blood Cells 3.53 10^6/uL (4.5-5.90); Red Cell Distribution Width 19.8 % (11.8-14.3); White Blood Cell 5.7 10^3/uL (4.4-10.8)
[2022-12-15 09:51] LABS: BUN/Creatinine Ratio 11.8 (10.0-20.0); Calcium 7.1 mg/dL (8.5-10.1); Potassium 4.5 mmol/L (3.5-5.1)
[2022-12-15] MEDS: CLOPIDOGREL BISULFATE 75 MG TAB PO SCH (11:35)
[2022-12-15] MEDS: FERROUS SULFATE 325mg EC TAB PO SCH (11:35)
[2022-12-15] MEDS: CARVEDILOL 12.5 MG TAB PO SCH ×2 (11:36→21:45)
[2022-12-15 12:10] LABS: INR 1.28 (0.9-1.15)
[2022-12-15 12:35] LABS: Partial Thromboplastin Time > 139.0 sec (24.6-33.4)
[2022-12-15] MEDS ORDERED: HEPARIN DRIP/D5W 100UNITS/ML 250 ML IV SCH (13:37)
[2022-12-15] MEDS ORDERED: WARFARIN SODIUM 2.5 MG TAB PO ONE (17:00)
[2022-12-15] MEDS ORDERED: ENOXAPARIN SOD 100 MG/1 ML SYRINGE SC ONE (18:00)
[2022-12-15] MEDS: NYSTATIN TOPICAL POWDER 15GM TOP SCH ×2 (18:02→21:46)
[2022-12-15] MEDS: TAMSULOSIN HYDROCHLORIDE 0.4 MG CAP PO SCH (21:46)
[2022-12-15] MEDS: ATORVASTATIN 20 MG TAB PO SCH (21:46)
[2022-12-16 05:00] VITALS: BP 159/84
[2022-12-16] MEDS: InsuLIN REG 1unit/0.01ml Soln (100units/ml) SC SCH ×2 (06:26→12:35)
[2022-12-16] MEDS: ACCU-CHEK COMFORT CURVE STRIP VI SCH ×2 (06:26→12:14)
[2022-12-16] MEDS: LEVOTHYROXINE SODIUM 100 MCG TAB PO SCH (06:26)
[2022-12-16 09:00] VITALS: BP_SYST 145; BP_SYST 146; BP_DIAS 60; BP_DIAS 82
[2022-12-16 09:31] LABS: Basophils # (auto) 0 10 ^3/uL (0-0.2); Basophils % (auto) 0.5 % (0.0-2.0); Eosinophils # (auto) 0.1 10 ^3/uL (0-0.8); Eosinophils % (auto) 1.3 % (0.0-7.0); Hematocrit 30.8 % (41.0-53.0); Hemoglobin 10.3 g/dL (13.5-17.5); Lymphocytes # (auto) 0.9 10 ^3/uL (0.4-5.4); Lymphocytes % (auto) 16.9 % (10.0-50.0); Mean Corpuscular Hemoglobin 30.9 pg (28.0-32.0); Mean Corpuscular Hgb Conc. 33.4 g/dL (32.0-36.0); Mean Corpuscular Volume 92.5 fL (80.0-100.0); Monocytes # (auto) 0.3 10 ^3/uL (0-1.3); Monocytes % (auto) 5.3 % (0.0-12.0); Neutrophils # (auto) 4.2 10 ^3/uL (1.6-8.6); Nucleated Red Blood Cells % 0.2 %; Red Blood Cells 3.33 10^6/uL (4.5-5.90); Red Cell Distribution Width 19.2 % (11.8-14.3); White Blood Cell 5.6 10^3/uL (4.4-10.8)
[2022-12-16] MEDS: CLOPIDOGREL BISULFATE 75 MG TAB PO SCH (09:49)
[2022-12-16] MEDS: FERROUS SULFATE 325mg EC TAB PO SCH (09:49)
[2022-12-16] MEDS: CARVEDILOL 12.5 MG TAB PO SCH (09:49)
[2022-12-16] MEDS: NYSTATIN TOPICAL POWDER 15GM TOP SCH (09:52)
[2022-12-16 09:57] LABS: INR 1.24 (0.9-1.15)
[2022-12-16] MEDS ORDERED: ENOXAPARIN SOD 100 MG/1 ML SYRINGE SC ONE (10:15)
[2022-12-16 12:40] VITALS: BP 146/64
[2022-12-16 13:00] VITALS: BP 133/49
== END 2022-12-16 13:37 | DRG 246 ==
LOC: ER 13:24 → EDUNIT# 13:24 → EDBD 13:24 → TELE 18:28 → TELE-CENTR 12-13 23:00
PROVIDERS: ADMIT Nurse Practitioner Family; ATTEND Internal Medicine
PROC: 027035Z Dilation of Coronary Artery, One Artery with Two Drug-eluting Intraluminal Devices, Percutaneous Approach (ICD-10-PCS; principal; 2022-12-14)
PROC: B211YZZ Fluoroscopy of Multiple Coronary Arteries using Other Contrast (ICD-10-PCS; 2022-12-14)
PROC: 5A1D70Z Performance of Urinary Filtration, Intermittent, Less than 6 Hours Per Day (ICD-10-PCS; 2022-12-14)
PROC: B241ZZ3 Ultrasonography of Multiple Coronary Arteries, Intravascular (ICD-10-PCS; 2022-12-14)
DX: I21.4 Non-ST elevation (NSTEMI) myocardial infarction (principal); E43 Unspecified severe protein-calorie malnutrition; N18.6 End stage renal disease; I50.21 Acute systolic (congestive) heart failure; I45.2 Bifascicular block; I13.2 Hypertensive heart and chronic kidney disease with heart failure and with stage 5 chronic kidney disease, or end stage renal disease; I25.10 Atherosclerotic heart disease of native coronary artery without angina pectoris; I73.9 Peripheral vascular disease, unspecified; I51.3 Intracardiac thrombosis, not elsewhere classified; Z20.822 Contact with and (suspected) exposure to COVID-19; D64.9 Anemia, unspecified; E87.5 Hyperkalemia; I35.1 Nonrheumatic aortic (valve) insufficiency; Z79.01 Long term (current) use of anticoagulants; Z91.199 Patient's noncompliance with other medical treatment and regimen due to unspecified reason; Z99.2 Dependence on renal dialysis; Z68.25 Body mass index [BMI] 25.0-25.9, adult
CPT/HCPCS: 36415; 70450; 71045; 80048; 80053; 80061; 82962; 83735; 83880; 83930; 84132; 84439; 84443; 84484; 85025; 85610; 85730; 86850; 86900; 86901; 87426; 90935; 92929; 92941; 92978; 93005; 93306; 93454; 93925; 93926; 93970; 94640; 96372; 96374; 96375; 99152; 99153; 99291; C1874; G0378; J1642; J1815; J2250; J2405; Q9967

== ENCOUNTER 2022-12-25 22:06 | Inpatient (IN) | payer MEDICARE, MEDICAID ==
[~2022-12-25] VITALS: Ht 185.4 cm; Wt 102.5 kg
[2022-12-25 23:11] LABS: Basophils # (auto) 0.1 10 ^3/uL (0-0.2); Basophils % (auto) 1.3 % (0.0-2.0); Eosinophils # (auto) 0.2 10 ^3/uL (0-0.8); Eosinophils % (auto) 2.9 % (0.0-7.0); Hematocrit 29.5 % (41.0-53.0); Hemoglobin 9.9 g/dL (13.5-17.5); Lymphocytes # (auto) 1.9 10 ^3/uL (0.4-5.4); Lymphocytes % (auto) 23.1 % (10.0-50.0); Mean Corpuscular Hemoglobin 31.3 pg (28.0-32.0); Mean Corpuscular Hgb Conc. 33.6 g/dL (32.0-36.0); Mean Corpuscular Volume 93.1 fL (80.0-100.0); Monocytes # (auto) 0.6 10 ^3/uL (0-1.3); Monocytes % (auto) 7.1 % (0.0-12.0); Neutrophils # (auto) 5.3 10 ^3/uL (1.6-8.6); Neutrophils % (auto) 65.6 % (37.0-80.0); Nucleated Red Blood Cells % 0.1 %; Red Blood Cells 3.17 10^6/uL (4.5-5.90); Red Cell Distribution Width 19.2 % (11.8-14.3); White Blood Cell 8.1 10^3/uL (4.4-10.8)
[2022-12-25 23:23] LABS: INR 1.71 (0.9-1.15); Partial Thromboplastin Time 31.7 sec (24.6-33.4)
[2022-12-25 23:24] LABS: Albumin 2.7 g/dL (3.4-5.0); BUN/Creatinine Ratio 15.5 (10.0-20.0); Calcium 7.7 mg/dL (8.5-10.1); Magnesium 2.5 mg/dL (1.6-2.6)
[2022-12-25 23:29] LABS: Potassium 6.2 mmol/L (3.5-5.1)
[2022-12-25 23:45] LABS: Bilirubin, Total 0.7 mg/dL (0.2-1.0); Total Protein 6.1 g/dL (6.4-8.2)
[2022-12-25] MEDS ORDERED: SODIUM ZIRCONIUM CYCL 10 GM PAK PO ONE (23:45)
[2022-12-25] MEDS ORDERED: InsuLIN REG 1unit/0.01ml Soln (100units/ml) IV ONE (23:45)
[2022-12-25] MEDS ORDERED: CALCIUM GLUC 1,000mg/50ml-NS 50 ML IV ONE (23:45)
[2022-12-25] MEDS ORDERED: DEXTROSE (50%) 50ML SYRG IV ONE (23:45)
[2022-12-26] VITALS (37 sets, daily range): BP systolic 119–159; BP diastolic 53–126
[2022-12-26] MEDS ORDERED: DEXTROSE 10% 1,000 ML IV ONE (01:00)
[2022-12-26] MEDS ORDERED: ALBUTEROL SULF 2.5 MG/0.5ML(0.5%) NEB SOLN NEB ONE ×2 (01:15→07:00)
[2022-12-26] MEDS ORDERED: MORPHINE SULFATE 4 MG/ML SYR/VIAL IV ONE (01:15)
[2022-12-26] MEDS ORDERED: ONDANSETRON HCL 4 MG/2 ML VIAL IV ONE (01:15)
[2022-12-26] MEDS ORDERED: diphenhdrAMINE HCL 50 MG/1 ML VL IV ONE (03:00)
[2022-12-26] MEDS ORDERED: LORazepam 2MG/ML-1ML VIAL IV ONE (03:45)
[2022-12-26] MEDS ORDERED: FUROSEMIDE 40 MG/4 ML VIAL IV ONE (05:00)
[2022-12-26] MEDS ORDERED: InsuLIN REG 1unit/0.01ml Soln (100units/ml) IV ONE (05:00)
[2022-12-26] MEDS ORDERED: SODIUM BICARBONATE 8.4% INJ 50ML SYRINGE IV ONE ×2 (05:00→07:45)
[2022-12-26] MEDS ORDERED: SODIUM ZIRCONIUM CYCL 10 GM PAK PO ONE ×2 (07:00→07:45)
[2022-12-26] MEDS ORDERED: ALBUTEROL SULF 2.5 MG/0.5ML(0.5%) NEB SOLN NEB PRN (07:00)
[2022-12-26] MEDS ORDERED: ONDANSETRON HCL 4 MG/2 ML VIAL IV PRN (07:00)
[2022-12-26] MEDS ORDERED: MORPHINE SULFATE INJ 2 MG/ml SYRG IV PRN (07:00)
[2022-12-26] MEDS ORDERED: NITROGLYCERIN 0.4 MG SL TAB SL PRN (07:00)
[2022-12-26] MEDS ORDERED: LEVOTHYROXINE SODIUM 50 MCG TAB PO SCH (07:00)
[2022-12-26] MEDS ORDERED: CALCIUM GLUC 1,000mg/50ml-NS 50 ML IV ONE (07:45)
[2022-12-26] MEDS ORDERED: DEXTROSE 10% 250 ML IV ONE (08:42)
[2022-12-26] MEDS ORDERED: DEXTROSE (50%) 50ML SYRG IV ONE (09:00)
[2022-12-26] MEDS ORDERED: FUROSEMIDE 100 MG/10ML VIAL IV ONE (09:15)
[2022-12-26] MEDS ORDERED: DEXTROSE (50%) 50ML SYRG IV PRN (09:30)
[2022-12-26] MEDS: ACCU-CHEK COMFORT CURVE STRIP VI SCH ×19 (09:46→23:35)
[2022-12-26 09:51] LABS: Basophils # (auto) 0.1 10 ^3/uL (0-0.2); Basophils % (auto) 0.9 % (0.0-2.0); Eosinophils # (auto) 0.1 10 ^3/uL (0-0.8); Eosinophils % (auto) 1.3 % (0.0-7.0); Hematocrit 31.5 % (41.0-53.0); Hemoglobin 10.2 g/dL (13.5-17.5); Lymphocytes # (auto) 3.1 10 ^3/uL (0.4-5.4); Lymphocytes % (auto) 33.6 % (10.0-50.0); Mean Corpuscular Hemoglobin 30.8 pg (28.0-32.0); Mean Corpuscular Hgb Conc. 32.4 g/dL (32.0-36.0); Mean Corpuscular Volume 95.1 fL (80.0-100.0); Monocytes # (auto) 0.6 10 ^3/uL (0-1.3); Monocytes % (auto) 6.5 % (0.0-12.0); Neutrophils # (auto) 5.4 10 ^3/uL (1.6-8.6); Neutrophils % (auto) 57.7 % (37.0-80.0); Nucleated Red Blood Cells % 0.1 %; Red Blood Cells 3.31 10^6/uL (4.5-5.90); Red Cell Distribution Width 19.3 % (11.8-14.3); White Blood Cell 9.3 10^3/uL (4.4-10.8)
[2022-12-26] MEDS ORDERED: PANTOPRAZOLE 40 MG TAB PO SCH (10:00)
[2022-12-26] MEDS ORDERED: CARVEDILOL 12.5 MG TAB PO SCH (10:00)
[2022-12-26] MEDS: ASPirin 81 mg TAB PO SCH (10:00)
[2022-12-26] MEDS: CLOPIDOGREL BISULFATE 75 MG TAB PO SCH (10:00)
[2022-12-26 10:43] LABS: Albumin 2.6 g/dL (3.4-5.0); Bilirubin, Total 0.9 mg/dL (0.2-1.0); Total Protein 5.8 g/dL (6.4-8.2)
[2022-12-26 10:57] LABS: Potassium 6.1 mmol/L (3.5-5.1)
[2022-12-26] MEDS: DEXTROSE 10% 250 ML IV PRN ×2 (12:51→15:45)
[2022-12-26] MEDS: DEXTROSE 10% 1,000 ML IV SCH (13:00)
[2022-12-26 13:30] LABS: INR 1.89 (0.9-1.15)
[2022-12-26 13:55] LABS: Urine Bacteria FEW /hpf (None Seen); Urine Blood 2+ /uL (Negative); Urine Specific Gravity 1.013 (1.001-1.035); Urine WBC 23 /hpf (0 - 3)
[2022-12-26 14:24] LABS: Alcohol, Urine < 3.0 mg/dL (0-10); Amphetamine Screen, Urine NEGATIVE (NEGATIVE); Barbiturate Scree,Urine NEGATIVE (NEGATIVE); Benzodiazephine Screen, Urine NEGATIVE (NEGATIVE); Cannabinoid Screen, Urine NEGATIVE (NEGATIVE); Cocaine Screen, Urine NEGATIVE (NEGATIVE); Opiate Scree,Urine NEGATIVE (NEGATIVE); Phencyclidine Screen, Urine NEGATIVE (NEGATIVE)
[2022-12-26] MEDS ORDERED: BUMETANIDE 2.5mg/10ml (0.25 mg/ml) INJ IV ONE (14:30)
[2022-12-26] MEDS ORDERED: VANCOMYCIN PER PHARMACY 0 MG IV SCH (14:30)
[2022-12-26] MEDS ORDERED: VANCOMYCIN 1GM/250ML 250 ML IV ONE (15:00)
[2022-12-26] MEDS ORDERED: DEXTROSE 10% 250 ML Bag IV ONE (15:54)
[2022-12-26] MEDS: SODIUM ZIRCONIUM CYCL 10 GM PAK PO SCH ×2 (15:58→22:00)
[2022-12-26] MEDS: cefTRIAXone 1GM/50ML D5W 50 ML IV SCH (15:59)
[2022-12-26] MEDS ORDERED: WARFARIN SODIUM 5 MG TAB PO ONE (17:00)
[2022-12-26] MEDS ORDERED: TAMSULOSIN HYDROCHLORIDE 0.4 MG CAP PO SCH (18:00)
[2022-12-26] MEDS: LACTULOSE 20Gm/30ML SOLN PO SCH (18:23)
[2022-12-26] MEDS ORDERED: ALBUMIN 25% 100 ML IV ONE (20:45)
[2022-12-26] MEDS ORDERED: EPOETIN ALFA-EPBX 10,000 UNIT/1ML VIAL SC ONE (21:00)
[2022-12-27] VITALS (80 sets, daily range): BP systolic 114–148; BP diastolic 54–77
[2022-12-27] MEDS: DEXTROSE 10% 1,000 ML IV SCH ×2 (01:13→09:00)
[2022-12-27] MEDS: ACCU-CHEK COMFORT CURVE STRIP VI SCH ×12 (01:14→22:32)
[2022-12-27 01:56] LABS: Basophils # (auto) 0.1 10 ^3/uL (0-0.2); Basophils % (auto) 0.8 % (0.0-2.0); Eosinophils # (auto) 0.1 10 ^3/uL (0-0.8); Eosinophils % (auto) 1.3 % (0.0-7.0); Hematocrit 26.6 % (41.0-53.0); Hemoglobin 8.9 g/dL (13.5-17.5); Lymphocytes % (auto) 9.5 % (10.0-50.0); Mean Corpuscular Hemoglobin 31.2 pg (28.0-32.0); Mean Corpuscular Hgb Conc. 33.3 g/dL (32.0-36.0); Mean Corpuscular Volume 93.8 fL (80.0-100.0); Monocytes # (auto) 0.5 10 ^3/uL (0-1.3); Monocytes % (auto) 4.5 % (0.0-12.0); Neutrophils # (auto) 8.6 10 ^3/uL (1.6-8.6); Neutrophils % (auto) 83.9 % (37.0-80.0); Nucleated Red Blood Cells % 0.1 %; Red Blood Cells 2.84 10^6/uL (4.5-5.90); Red Cell Distribution Width 19.1 % (11.8-14.3); White Blood Cell 10.2 10^3/uL (4.4-10.8)
[2022-12-27] MEDS: LACTULOSE 20Gm/30ML SOLN PO SCH ×2 (02:07→06:42)
[2022-12-27 02:08] LABS: Albumin 2.6 g/dL (3.4-5.0); BUN/Creatinine Ratio 13.8 (10.0-20.0); Calcium 7.8 mg/dL (8.5-10.1); Potassium 4.6 mmol/L (3.5-5.1)
[2022-12-27 02:10] LABS: Bilirubin, Total 0.8 mg/dL (0.2-1.0); Total Protein 5.6 g/dL (6.4-8.2)
[2022-12-27] MEDS: SODIUM ZIRCONIUM CYCL 10 GM PAK PO SCH ×2 (05:56→11:11)
[2022-12-27 06:37] LABS: INR 2.69 (0.9-1.15); Partial Thromboplastin Time 36.2 sec (24.6-33.4)
[2022-12-27] MEDS: cefTRIAXone 1GM/50ML D5W 50 ML IV SCH (09:10)
[2022-12-27] MEDS: ASPirin 81 mg TAB PO SCH (09:10)
[2022-12-27] MEDS: CLOPIDOGREL BISULFATE 75 MG TAB PO SCH (09:23)
[2022-12-27] MEDS: FLORASTOR (S. BOULARDII) 250 MG CAP PO SCH (09:23)
[2022-12-27] MEDS: CARVEDILOL 3.125 MG TAB PO SCH ×2 (09:23→22:29)
[2022-12-27] MEDS ORDERED: APIXABAN 5 MG TAB PO SCH (10:00)
[2022-12-27] MEDS ORDERED: VANCOMYCIN 1GM/250ML 250 ML IV ONE (10:00)
[2022-12-27] MEDS ORDERED: WARFARIN SODIUM 1 MG TAB PO ONE (17:00)
[2022-12-27] MEDS: MUPIROCIN 2% OINT 15gm or 22gm FOR MRSA NARES EACHNOSTRI SCH (22:00)
[2022-12-28] VITALS (49 sets, daily range): BP systolic 112–165; BP diastolic 56–87
[2022-12-28] MEDS: ACCU-CHEK COMFORT CURVE STRIP VI SCH ×5 (04:24→23:17)
[2022-12-28 04:50] LABS: Basophils # (auto) 0.1 10 ^3/uL (0-0.2); Basophils % (auto) 0.7 % (0.0-2.0); Eosinophils # (auto) 0.2 10 ^3/uL (0-0.8); Eosinophils % (auto) 3.3 % (0.0-7.0); Hematocrit 26.4 % (41.0-53.0); Hemoglobin 8.9 g/dL (13.5-17.5); INR 3.1 (0.9-1.15); Lymphocytes # (auto) 1.3 10 ^3/uL (0.4-5.4); Lymphocytes % (auto) 18.7 % (10.0-50.0); Mean Corpuscular Hemoglobin 31.7 pg (28.0-32.0); Mean Corpuscular Hgb Conc. 33.6 g/dL (32.0-36.0); Mean Corpuscular Volume 94.4 fL (80.0-100.0); Monocytes # (auto) 0.4 10 ^3/uL (0-1.3); Monocytes % (auto) 5.3 % (0.0-12.0); Neutrophils # (auto) 5.1 10 ^3/uL (1.6-8.6); Partial Thromboplastin Time 39.4 sec (24.6-33.4); Red Cell Distribution Width 19.2 % (11.8-14.3); White Blood Cell 7.1 10^3/uL (4.4-10.8)
[2022-12-28 04:51] LABS: BUN/Creatinine Ratio 14.7 (10.0-20.0); Calcium 7.7 mg/dL (8.5-10.1); Potassium 5.2 mmol/L (3.5-5.1)
[2022-12-28] MEDS: MUPIROCIN 2% OINT 15gm or 22gm FOR MRSA NARES EACHNOSTRI SCH ×2 (10:42→21:34)
[2022-12-28] MEDS: ASPirin 81 mg TAB PO SCH (10:42)
[2022-12-28] MEDS: FLORASTOR (S. BOULARDII) 250 MG CAP PO SCH (10:43)
[2022-12-28] MEDS: CARVEDILOL 3.125 MG TAB PO SCH ×2 (10:43→21:31)
[2022-12-28] MEDS: CLOPIDOGREL BISULFATE 75 MG TAB PO SCH (10:43)
[2022-12-28] MEDS ORDERED: EPOETIN ALFA-EPBX 4,000 UNIT/ML VIAL SC ONE (21:00)
[2022-12-28] MEDS: LACTULOSE 20Gm/30ML SOLN PO SCH ×2 (21:30→21:43)
[2022-12-29] VITALS (7 sets, daily range): BP systolic 127–177; BP diastolic 67–87
[2022-12-29] MEDS: ACETAMINOPHEN 325 MG TAB PO PRN ×2 (01:11→23:22)
[2022-12-29 06:03] LABS: BUN/Creatinine Ratio 13.3 (10.0-20.0); Calcium 7.8 mg/dL (8.5-10.1); Potassium 4.6 mmol/L (3.5-5.1)
[2022-12-29 06:05] LABS: INR 2.23 (0.9-1.15)
[2022-12-29] MEDS: ACCU-CHEK COMFORT CURVE STRIP VI SCH ×4 (06:22→23:36)
[2022-12-29] MEDS: LEVOTHYROXINE SODIUM 50 MCG TAB PO SCH (06:39)
[2022-12-29 09:00] LABS: Hepatitis B Surface Antibody Negative (Negative)
[2022-12-29 09:31] LABS: Hepatitis A Total Antibody Negative (Negative)
[2022-12-29] MEDS: LACTULOSE 20Gm/30ML SOLN PO SCH ×2 (10:03→21:27)
[2022-12-29] MEDS: FLORASTOR (S. BOULARDII) 250 MG CAP PO SCH (10:03)
[2022-12-29] MEDS: ASPirin 81 mg TAB PO SCH (10:03)
[2022-12-29] MEDS: CLOPIDOGREL BISULFATE 75 MG TAB PO SCH (10:03)
[2022-12-29] MEDS: CARVEDILOL 3.125 MG TAB PO SCH ×2 (10:04→23:21)
[2022-12-29] MEDS: MUPIROCIN 2% OINT 15gm or 22gm FOR MRSA NARES EACHNOSTRI SCH ×2 (10:23→23:26)
[2022-12-29] MEDS: hydrALAZINE HCL 20 MG/ML VL IV PRN ×2 (10:23→17:57)
[2022-12-29 14:09] LABS: Hepatitis C Antibody Negative (Negative)
[2022-12-29] MEDS ORDERED: WARFARIN SODIUM 2.5 MG TAB PO ONE (17:00)
[2022-12-29] MEDS: Juven Fruit Punch Powder PACKET 28.8gm PO SCH (18:11)
[2022-12-30 05:00] VITALS: BP 142/73
[2022-12-30 05:59] LABS: INR 2.04 (0.9-1.15); Partial Thromboplastin Time 36.2 sec (24.6-33.4)
[2022-12-30] MEDS: ACCU-CHEK COMFORT CURVE STRIP VI SCH ×2 (06:00→11:26)
[2022-12-30] MEDS: LEVOTHYROXINE SODIUM 50 MCG TAB PO SCH (06:25)
[2022-12-30] MEDS: Juven Fruit Punch Powder PACKET 28.8gm PO SCH (08:08)
[2022-12-30 09:00] VITALS: BP 159/86
[2022-12-30] MEDS: MUPIROCIN 2% OINT 15gm or 22gm FOR MRSA NARES EACHNOSTRI SCH (10:00)
[2022-12-30] MEDS: LACTULOSE 20Gm/30ML SOLN PO SCH ×2 (10:00→10:38)
[2022-12-30] MEDS: FLORASTOR (S. BOULARDII) 250 MG CAP PO SCH (10:38)
[2022-12-30] MEDS: CLOPIDOGREL BISULFATE 75 MG TAB PO SCH (10:38)
[2022-12-30] MEDS: ASPirin 81 mg TAB PO SCH (10:38)
[2022-12-30 12:54] VITALS: BP 153/78
== END 2022-12-30 13:45 | disposition short-term general hospital (02) | DRG 640 ==
LOC: ER 22:06 → EDBD 22:06 → OVERFLOW 12-26 06:47 → ICU WEST 12-26 13:41 → EAST 12-28 14:44
PROVIDERS: ADMIT Nurse Practitioner; ATTEND Internal Medicine
PROC: 5A1D70Z Performance of Urinary Filtration, Intermittent, Less than 6 Hours Per Day (ICD-10-PCS; principal; 2022-12-26)
PROC: 5A1D70Z Performance of Urinary Filtration, Intermittent, Less than 6 Hours Per Day (ICD-10-PCS; 2022-12-28)
PROC: 5A1D70Z Performance of Urinary Filtration, Intermittent, Less than 6 Hours Per Day (ICD-10-PCS; 2022-12-30)
DX: E16.2 Hypoglycemia, unspecified (principal); G93.41 Metabolic encephalopathy; J96.21 Acute and chronic respiratory failure with hypoxia; N18.6 End stage renal disease; I13.2 Hypertensive heart and chronic kidney disease with heart failure and with stage 5 chronic kidney disease, or end stage renal disease; E44.0 Moderate protein-calorie malnutrition; G93.1 Anoxic brain damage, not elsewhere classified; L03.116 Cellulitis of left lower limb; L03.115 Cellulitis of right lower limb; I50.22 Chronic systolic (congestive) heart failure; E87.20 Acidosis, unspecified; E87.5 Hyperkalemia; D63.8 Anemia in other chronic diseases classified elsewhere; I73.9 Peripheral vascular disease, unspecified; R29.6 Repeated falls; Z20.822 Contact with and (suspected) exposure to COVID-19; D64.9 Anemia, unspecified; L98.9 Disorder of the skin and subcutaneous tissue, unspecified; E78.5 Hyperlipidemia, unspecified; I25.10 Atherosclerotic heart disease of native coronary artery without angina pectoris; Z99.2 Dependence on renal dialysis; Z95.5 Presence of coronary angioplasty implant and graft; Z82.0 Family history of epilepsy and other diseases of the nervous system; Z68.24 Body mass index [BMI] 24.0-24.9, adult
CPT/HCPCS: 36415; 36600; 70450; 71045; 76705; 80048; 80053; 80202; 80307; 81001; 82140; 82306; 82805; 82962; 83605; 83735; 83880; 84132; 84484; 85025; 85379; 85610; 85730; 86704; 86706; 86708; 86803; 87040; 87081; 87086; 87088; 87186; 87340; 87426; 90935; 93005; 94640; 95819; 96365; 96366; 96375; 96376; 99291; G0378; J0696; J1642; J1815; J2405; P9047

== ENCOUNTER 2023-01-08 17:37 | Inpatient (IN) | payer MEDICARE, MEDICAID ==
[~2023-01-08] VITALS: Ht 185.4 cm; Wt 90.0 kg
[2023-01-08 18:23] LABS: Basophils # (auto) 0.1 10 ^3/uL (0-0.2); Basophils % (auto) 0.6 % (0.0-2.0); Eosinophils # (auto) 0.8 10 ^3/uL (0-0.8); Eosinophils % (auto) 8.5 % (0.0-7.0); Hematocrit 28.7 % (41.0-53.0); Hemoglobin 9.2 g/dL (13.5-17.5); Lymphocytes # (auto) 1.3 10 ^3/uL (0.4-5.4); Lymphocytes % (auto) 14.3 % (10.0-50.0); Mean Corpuscular Hemoglobin 30.8 pg (28.0-32.0); Mean Corpuscular Volume 96.3 fL (80.0-100.0); Monocytes # (auto) 0.6 10 ^3/uL (0-1.3); Monocytes % (auto) 6.9 % (0.0-12.0); Neutrophils # (auto) 6.3 10 ^3/uL (1.6-8.6); Neutrophils % (auto) 69.7 % (37.0-80.0); Red Blood Cells 2.98 10^6/uL (4.5-5.90)
[2023-01-08 18:42] LABS: Albumin 2.7 g/dL (3.4-5.0); Calcium 7.3 mg/dL (8.5-10.1); Magnesium 2.5 mg/dL (1.6-2.6); Potassium 4.5 mmol/L (3.5-5.1)
[2023-01-08 18:45] LABS: BUN/Creatinine Ratio 14.7 (10.0-20.0); Bilirubin, Total 0.6 mg/dL (0.2-1.0); Total Protein 5.8 g/dL (6.4-8.2)
[2023-01-08] MEDS ORDERED: ACETAMINOPHEN 325 MG TAB PO PRN (23:15)
[2023-01-08] MEDS ORDERED: diphenhdrAMINE HCL 50 MG/1 ML VL IV ONE (23:15)
[2023-01-08] MEDS ORDERED: HYDROcodone-ACET 5/325MG TAB PO PRN (23:15)
[2023-01-08] MEDS ORDERED: NITROGLYCERIN 0.4 MG SL TAB SL PRN (23:15)
[2023-01-08] MEDS ORDERED: MORPHINE SULFATE INJ 2 MG/ml SYRG IV PRN (23:15)
[2023-01-08 23:58] LABS: INR 1.17 (0.9-1.15); Partial Thromboplastin Time 30.8 sec (24.6-33.4)
[2023-01-09] MEDS: FUROSEMIDE 20 MG/2 ML VIAL IV SCH ×3 (00:07→14:27)
[2023-01-09 01:33] LABS: Urine Bacteria MOD /hpf (None Seen); Urine Blood 3+ /uL (Negative); Urine Hyaline Cast FEW /lpf (0 - 2); Urine Specific Gravity 1.015 (1.001-1.035); Urine WBC 146 /hpf (0 - 3)
[2023-01-09] MEDS: MORPHINE SULFATE INJ 2 MG/ml SYRG IV PRN (02:17)
[2023-01-09] MEDS: hydrALAZINE HCL 20 MG/ML VL IV PRN ×2 (04:12→22:36)
[2023-01-09 05:47] LABS: Basophils # (auto) 0.1 10 ^3/uL (0-0.2); Basophils % (auto) 1.2 % (0.0-2.0); Eosinophils # (auto) 0.7 10 ^3/uL (0-0.8); Eosinophils % (auto) 7.8 % (0.0-7.0); Hematocrit 29.4 % (41.0-53.0); Hemoglobin 9.5 g/dL (13.5-17.5); Lymphocytes # (auto) 1.4 10 ^3/uL (0.4-5.4); Mean Corpuscular Hemoglobin 31.1 pg (28.0-32.0); Mean Corpuscular Hgb Conc. 32.4 g/dL (32.0-36.0); Mean Corpuscular Volume 95.9 fL (80.0-100.0); Monocytes # (auto) 0.4 10 ^3/uL (0-1.3); Monocytes % (auto) 4.7 % (0.0-12.0); Neutrophils # (auto) 6.6 10 ^3/uL (1.6-8.6); Neutrophils % (auto) 71.3 % (37.0-80.0); Nucleated Red Blood Cells % 0.1 %; Red Blood Cells 3.07 10^6/uL (4.5-5.90); White Blood Cell 9.3 10^3/uL (4.4-10.8)
[2023-01-09 05:58] LABS: Red Cell Distribution Width 21.9 % (11.8-14.3)
[2023-01-09 06:07] LABS: Albumin 2.8 g/dL (3.4-5.0); Calcium 7.9 mg/dL (8.5-10.1); Potassium 4.8 mmol/L (3.5-5.1)
[2023-01-09 06:12] LABS: BUN/Creatinine Ratio 14.5 (10.0-20.0); Bilirubin, Total 0.7 mg/dL (0.2-1.0); Total Protein 6.2 g/dL (6.4-8.2)
[2023-01-09] MEDS: LEVOTHYROXINE SODIUM 50 MCG TAB PO SCH (07:03)
[2023-01-09] MEDS: FERROUS SULFATE 325mg EC TAB PO SCH (09:49)
[2023-01-09] MEDS: traZODone HCL 50 MG TAB PO SCH (09:49)
[2023-01-09] MEDS: TAMSULOSIN HYDROCHLORIDE 0.4 MG CAP PO SCH (09:49)
[2023-01-09] MEDS: ASPirin-EC 81 mg tab PO SCH ×2 (10:00→15:04)
[2023-01-09] MEDS: CARVEDILOL 12.5 MG TAB PO SCH ×2 (10:00→22:35)
[2023-01-09] MEDS ORDERED: ENOXAPARIN SOD 30 MG/0.3 ML SYRINGE SC SCH (10:00)
[2023-01-09 10:30] VITALS: BP 161/80
[2023-01-09] MEDS ORDERED: HEPARIN DRIP/D5W 100UNITS/ML 250 ML IV SCH ×3 (12:45→22:00)
[2023-01-09] MEDS ORDERED: CLOPIDOGREL 300 MG TAB PO ONE (12:45)
[2023-01-09] MEDS ORDERED: HEPARIN SODIUM (PORCINE) 5000 UNITS/ML 1ML VIAL IV ONE ×2 (12:45→22:00)
[2023-01-09 13:51] LABS: Basophils # (auto) 0 10 ^3/uL (0-0.2); Basophils % (auto) 0.4 % (0.0-2.0); Eosinophils # (auto) 0.8 10 ^3/uL (0-0.8); Eosinophils % (auto) 8.9 % (0.0-7.0); Hematocrit 30.5 % (41.0-53.0); Hemoglobin 9.9 g/dL (13.5-17.5); Lymphocytes # (auto) 1.1 10 ^3/uL (0.4-5.4); Lymphocytes % (auto) 13.2 % (10.0-50.0); Mean Corpuscular Hemoglobin 31.3 pg (28.0-32.0); Mean Corpuscular Hgb Conc. 32.4 g/dL (32.0-36.0); Mean Corpuscular Volume 96.5 fL (80.0-100.0); Monocytes # (auto) 0.5 10 ^3/uL (0-1.3); Monocytes % (auto) 5.8 % (0.0-12.0); Neutrophils # (auto) 6.1 10 ^3/uL (1.6-8.6); Neutrophils % (auto) 71.7 % (37.0-80.0); Nucleated Red Blood Cells % 0.1 %; Red Blood Cells 3.17 10^6/uL (4.5-5.90); Red Cell Distribution Width 21.7 % (11.8-14.3); White Blood Cell 8.5 10^3/uL (4.4-10.8)
[2023-01-09] MEDS ORDERED: cefTRIAXone 1GM/50ML D5W 50 ML IV ONE (14:15)
[2023-01-09 14:18] LABS: INR 1.17 (0.9-1.15); Partial Thromboplastin Time 30.2 sec (24.6-33.4)
[2023-01-09 16:55] VITALS: BP 148/54
[2023-01-09 16:58] VITALS: BP 140/92
[2023-01-09 20:58] LABS: INR 1.16 (0.9-1.15); Partial Thromboplastin Time 30.6 sec (24.6-33.4)
[2023-01-09] MEDS ORDERED: EPOETIN ALFA-EPBX 4,000 UNIT/ML VIAL SC ONE (21:00)
[2023-01-09 22:00] VITALS: BP 183/89
[2023-01-10 06:33] LABS: Basophils # (auto) 0 10 ^3/uL (0-0.2); Basophils % (auto) 0.6 % (0.0-2.0); Eosinophils # (auto) 0.7 10 ^3/uL (0-0.8); Eosinophils % (auto) 9.3 % (0.0-7.0); Hematocrit 27.2 % (41.0-53.0); Lymphocytes % (auto) 13.5 % (10.0-50.0); Mean Corpuscular Hemoglobin 31.4 pg (28.0-32.0); Monocytes # (auto) 0.4 10 ^3/uL (0-1.3); Monocytes % (auto) 5.1 % (0.0-12.0); Neutrophils # (auto) 5.5 10 ^3/uL (1.6-8.6); Neutrophils % (auto) 71.5 % (37.0-80.0); Nucleated Red Blood Cells % 0.1 %; Red Blood Cells 2.87 10^6/uL (4.5-5.90); White Blood Cell 7.7 10^3/uL (4.4-10.8)
[2023-01-10 06:35] LABS: Red Cell Distribution Width 21.7 % (11.8-14.3)
[2023-01-10 06:36] LABS: INR 1.18 (0.9-1.15); Partial Thromboplastin Time 41.6 sec (24.6-33.4)
[2023-01-10 06:40] LABS: Potassium 4.2 mmol/L (3.5-5.1)
[2023-01-10 06:48] LABS: BUN/Creatinine Ratio 14.2 (10.0-20.0); Calcium 7.8 mg/dL (8.5-10.1)
[2023-01-10] MEDS: LEVOTHYROXINE SODIUM 50 MCG TAB PO SCH (06:50)
[2023-01-10] MEDS ORDERED: HEPARIN DRIP/D5W 100UNITS/ML 250 ML IV SCH (07:00)
[2023-01-10 08:42] VITALS: BP 146/75
[2023-01-10] MEDS: cefTRIAXone 1GM/50ML D5W 50 ML IV SCH (09:13)
[2023-01-10] MEDS: traZODone HCL 50 MG TAB PO SCH (09:14)
[2023-01-10] MEDS: FERROUS SULFATE 325mg EC TAB PO SCH (09:14)
[2023-01-10] MEDS: ASPirin-EC 81 mg tab PO SCH (09:15)
[2023-01-10] MEDS: CLOPIDOGREL BISULFATE 75 MG TAB PO SCH (09:15)
[2023-01-10] MEDS: TAMSULOSIN HYDROCHLORIDE 0.4 MG CAP PO SCH (09:15)
[2023-01-10] MEDS: FUROSEMIDE 20 MG/2 ML VIAL IV SCH (09:16)
[2023-01-10] MEDS: CARVEDILOL 12.5 MG TAB PO SCH ×2 (09:17→22:12)
[2023-01-10 13:53] LABS: INR 1.21 (0.9-1.15); Partial Thromboplastin Time 51.4 sec (24.6-33.4)
[2023-01-10 16:59] VITALS: BP 137/67
[2023-01-10] MEDS: ISOSORBIDE DINITRATE 10 MG TAB PO SCH (17:39)
[2023-01-10] MEDS: hydrALAZINE HCL 10 MG TAB PO SCH (22:00)
[2023-01-10] MEDS: FUROSEMIDE 100 MG/10ML VIAL IV SCH (22:11)
[2023-01-10] MEDS: APIXABAN 2.5 MG TAB PO SCH (22:12)
[2023-01-10 22:23] VITALS: BP 103/48
[2023-01-11] MEDS: MORPHINE SULFATE INJ 2 MG/ml SYRG IV PRN (02:42)
[2023-01-11 05:09] VITALS: BP 145/55
[2023-01-11] MEDS: ISOSORBIDE DINITRATE 10 MG TAB PO SCH ×3 (06:04→18:31)
[2023-01-11] MEDS: LEVOTHYROXINE SODIUM 50 MCG TAB PO SCH (06:04)
[2023-01-11] MEDS: hydrALAZINE HCL 10 MG TAB PO SCH ×2 (06:04→14:00)
[2023-01-11] MEDS ORDERED: SODIUM CHL 0.9% 1000 ML BAG XX ONE (07:00)
[2023-01-11 07:39] LABS: Basophils # (auto) 0 10 ^3/uL (0-0.2); Basophils % (auto) 0.4 % (0.0-2.0); Eosinophils # (auto) 0.8 10 ^3/uL (0-0.8); Hemoglobin 8.1 g/dL (13.5-17.5); Monocytes # (auto) 0.4 10 ^3/uL (0-1.3); Neutrophils # (auto) 4.1 10 ^3/uL (1.6-8.6)
[2023-01-11 07:41] LABS: Eosinophils % (auto) 12.6 % (0.0-7.0); Hematocrit 24.5 % (41.0-53.0); Lymphocytes # (auto) 0.9 10 ^3/uL (0.4-5.4); Lymphocytes % (auto) 14.9 % (10.0-50.0); Mean Corpuscular Hemoglobin 31.3 pg (28.0-32.0); Mean Corpuscular Hgb Conc. 33.1 g/dL (32.0-36.0); Mean Corpuscular Volume 94.4 fL (80.0-100.0); Monocytes % (auto) 6.2 % (0.0-12.0); Neutrophils % (auto) 65.9 % (37.0-80.0); Red Blood Cells 2.59 10^6/uL (4.5-5.90); White Blood Cell 6.3 10^3/uL (4.4-10.8)
[2023-01-11 07:50] LABS: Calcium 7.7 mg/dL (8.5-10.1); Potassium 4.6 mmol/L (3.5-5.1)
[2023-01-11 07:51] LABS: Red Cell Distribution Width 20.9 % (11.8-14.3)
[2023-01-11] MEDS: cefTRIAXone 1GM/50ML D5W 50 ML IV SCH (09:00)
[2023-01-11 09:09] VITALS: BP 147/74
[2023-01-11] MEDS: FUROSEMIDE 100 MG/10ML VIAL IV SCH (10:00)
[2023-01-11] MEDS: TAMSULOSIN HYDROCHLORIDE 0.4 MG CAP PO SCH (10:00)
[2023-01-11] MEDS: CLOPIDOGREL BISULFATE 75 MG TAB PO SCH (10:00)
[2023-01-11] MEDS: APIXABAN 2.5 MG TAB PO SCH (10:00)
[2023-01-11] MEDS: CARVEDILOL 12.5 MG TAB PO SCH (10:00)
[2023-01-11] MEDS: FERROUS SULFATE 325mg EC TAB PO SCH (10:00)
[2023-01-11] MEDS: traZODone HCL 50 MG TAB PO SCH (10:00)
[2023-01-11 12:25] VITALS: BP 153/76
[2023-01-11 16:29] VITALS: BP 143/73
[2023-01-11] MEDS ORDERED: EPOETIN ALFA-EPBX 10,000 UNIT/1ML VIAL SC ONE (21:00)
== END 2023-01-11 18:45 | DRG 291 ==
LOC: ER 17:37 → EDBD 17:37 → TELE 23:16 → TELE-WESTW 01-09 09:20
PROVIDERS: ADMIT Registered Nurse; ATTEND Internal Medicine
PROC: 5A1D70Z Performance of Urinary Filtration, Intermittent, Less than 6 Hours Per Day (ICD-10-PCS; principal; 2023-01-09)
PROC: 05H933Z Insertion of Infusion Device into Right Brachial Vein, Percutaneous Approach (ICD-10-PCS; 2023-01-09)
PROC: B54MZZA Ultrasonography of Right Upper Extremity Veins, Guidance (ICD-10-PCS; 2023-01-09)
PROC: 5A1D70Z Performance of Urinary Filtration, Intermittent, Less than 6 Hours Per Day (ICD-10-PCS; 2023-01-11)
DX: I13.2 Hypertensive heart and chronic kidney disease with heart failure and with stage 5 chronic kidney disease, or end stage renal disease (principal); I50.43 Acute on chronic combined systolic (congestive) and diastolic (congestive) heart failure; N18.6 End stage renal disease; E46 Unspecified protein-calorie malnutrition; N39.0 Urinary tract infection, site not specified; D63.1 Anemia in chronic kidney disease; I25.10 Atherosclerotic heart disease of native coronary artery without angina pectoris; I42.9 Cardiomyopathy, unspecified; I51.3 Intracardiac thrombosis, not elsewhere classified; I73.9 Peripheral vascular disease, unspecified; Z82.0 Family history of epilepsy and other diseases of the nervous system; Z99.2 Dependence on renal dialysis; Z95.5 Presence of coronary angioplasty implant and graft; Z68.26 Body mass index [BMI] 26.0-26.9, adult
CPT/HCPCS: 36415; 71045; 80048; 80053; 81001; 83735; 83880; 84443; 84484; 85025; 85610; 85730; 87081; 90935; 93005; 93925; 93970; 96374; 96375; 97163; G0378; J0696; J1642

== ENCOUNTER 2023-09-12 13:33 | Inpatient (IN) | payer MEDICARE, OTHER ==
[~2023-09-12] VITALS: Ht 182.9 cm; Wt 74.8 kg
[~2023-09-12 13:33] MED LIST changes: -FERR-20 PO; +FERR325T24 PO; +TRAZ-227 PO; -TRAZ50TA2 PO
[2023-09-12 14:54] LABS: Basophils # (auto) 0.1 10 ^3/uL (0-0.2); Basophils % (auto) 0.9 % (0.0-2.0); Eosinophils # (auto) 0.2 10 ^3/uL (0-0.8); Eosinophils % (auto) 3.7 % (0.0-7.0); Hematocrit 28.5 % (41.0-53.0); Hemoglobin 9.3 g/dL (13.5-17.5); Lymphocytes # (auto) 1.1 10 ^3/uL (0.4-5.4); Lymphocytes % (auto) 17.3 % (10.0-50.0); Mean Corpuscular Hemoglobin 32.2 pg (28.0-32.0); Mean Corpuscular Hgb Conc. 32.5 g/dL (32.0-36.0); Monocytes # (auto) 0.4 10 ^3/uL (0-1.3); Monocytes % (auto) 7.3 % (0.0-12.0); Neutrophils # (auto) 4.3 10 ^3/uL (1.6-8.6); Neutrophils % (auto) 70.8 % (37.0-80.0); Red Blood Cells 2.88 10^6/uL (4.5-5.90); White Blood Cell 6.1 10^3/uL (4.4-10.8)
[2023-09-12 15:02] LABS: Red Cell Distribution Width 20.3 % (11.8-14.3)
[2023-09-12 15:04] LABS: Albumin 2.8 g/dL (3.2-4.8); Alkaline Phosphatase 113 U/L (46-116); Anion Gap 9 (5-15); Aspartate Aminotransferase 14 U/L (13-40); BUN/Creatinine Ratio 7.3 (10.0-20.0); Blood Urea Nitrogen 30 mg/dL (9-23); Calcium 7.3 mg/dL (8.7-10.4); Carbon Dioxide 24 mmol/L (20-30); Chloride 103 mmol/L (98-107); Glucose 116 mg/dL (74-106); Lipase 35 U/L (12-53); Potassium 4.3 mmol/L (3.5-5.1); Sodium 136 mmol/L (136-145)
[2023-09-12 15:05] LABS: Bilirubin, Total 0.3 mg/dL (0.2-1.0); Total Protein 5.4 g/dL (5.7-8.2)
[2023-09-12 15:08] LABS: Alanine Aminotransferase < 9 U/L (7-40)
[2023-09-12] MEDS ORDERED: ONDANSETRON HCL 4 MG/2 ML VIAL IV PRN (21:00)
[2023-09-12 22:02] LABS: INR 1.09 (0.9-1.15); Partial Thromboplastin Time 31.3 SEC (24.5-34.5); Prothrombin Time 11.4 sec (9.3-11.8)
[2023-09-12] MEDS: CARVEDILOL 12.5 MG TAB PO SCH (22:18)
[2023-09-13 06:15] LABS: Basophils # (auto) 0 10 ^3/uL (0-0.2); Basophils % (auto) 0.9 % (0.0-2.0); Eosinophils # (auto) 0.3 10 ^3/uL (0-0.8); Eosinophils % (auto) 5.4 % (0.0-7.0); Hematocrit 27.9 % (41.0-53.0); Hemoglobin 9.1 g/dL (13.5-17.5); Lymphocytes # (auto) 0.9 10 ^3/uL (0.4-5.4); Lymphocytes % (auto) 17.4 % (10.0-50.0); Mean Corpuscular Hgb Conc. 32.6 g/dL (32.0-36.0); Mean Corpuscular Volume 98.1 fL (80.0-100.0); Monocytes # (auto) 0.4 10 ^3/uL (0-1.3); Monocytes % (auto) 7.3 % (0.0-12.0); Neutrophils # (auto) 3.7 10 ^3/uL (1.6-8.6); Red Blood Cells 2.85 10^6/uL (4.5-5.90); Red Cell Distribution Width 19.5 % (11.8-14.3); White Blood Cell 5.4 10^3/uL (4.4-10.8)
[2023-09-13 06:27] LABS: Alkaline Phosphatase 97 U/L (46-116); Anion Gap 10 (5-15); BUN/Creatinine Ratio 7.1 (10.0-20.0); Blood Urea Nitrogen 31 mg/dL (9-23); Calcium 7.4 mg/dL (8.7-10.4); Carbon Dioxide 24 mmol/L (20-30); Chloride 102 mmol/L (98-107); Glucose 64 mg/dL (74-106); Potassium 4.7 mmol/L (3.5-5.1); Sodium 136 mmol/L (136-145)
[2023-09-13 06:28] LABS: Albumin 2.6 g/dL (3.2-4.8); Aspartate Aminotransferase 19 U/L (13-40); Bilirubin, Total 0.4 mg/dL (0.2-1.0); Total Protein 5.1 g/dL (5.7-8.2)
[2023-09-13 06:36] LABS: Alanine Aminotransferase < 9 U/L (7-40)
[2023-09-13] MEDS: LEVOTHYROXINE SODIUM 50 MCG TAB PO SCH (07:32)
[2023-09-13 08:53] VITALS: PULSE 69; RESP 16; O2SAT 100
[2023-09-13] MEDS: CARVEDILOL 12.5 MG TAB PO SCH (10:17)
[2023-09-13] MEDS: ASPirin 81 mg TAB PO SCH (10:17)
[2023-09-13] MEDS ORDERED: ALBUMIN 25% 100 ML IV ONE (14:00)
[2023-09-13 16:25] VITALS: BP 121/47; PULSE 62; RESP 16; TEMP 97.5; O2SAT 100
[2023-09-13 17:00] VITALS: BP 121/47; PULSE 61; RESP 18; TEMP 97.5; O2SAT 100
[2023-09-13] MEDS: SEVELAMER 800 MG TAB PO SCH (17:24)
[2023-09-13] MEDS: TAMSULOSIN HYDROCHLORIDE 0.4 MG CAP PO SCH (17:24)
[2023-09-13 18:28] LABS: Body Fluid Polymorphonuclear 8 % (0-25); Body Fluid Red Blood Cells 22.5 CUMM (0-2000); Body Fluid White Blood Cells 90 CUMM (0-200)
[2023-09-13 20:00] VITALS: BP 118/49; PULSE 71; RESP 20; TEMP 98; O2SAT 95
[2023-09-13] MEDS: CARVEDILOL 3.125 MG TAB PO SCH (21:44)
[2023-09-13 22:00] VITALS: BP 118/49; PULSE 71; RESP 20; TEMP 98; O2SAT 95
[2023-09-14 05:00] VITALS: BP 120/45; PULSE 78; RESP 18; TEMP 98.1; O2SAT 94
[2023-09-14] MEDS: LEVOTHYROXINE SODIUM 50 MCG TAB PO SCH (06:04)
[2023-09-14] MEDS ORDERED: SODIUM CHL 0.9% 1000 ML BAG XX ONE (07:00)
[2023-09-14 07:50] LABS: Basophils # (auto) 0.1 10 ^3/uL (0-0.2); Basophils % (auto) 0.8 % (0.0-2.0); Eosinophils # (auto) 0.3 10 ^3/uL (0-0.8); Eosinophils % (auto) 4.2 % (0.0-7.0); Hematocrit 27.7 % (41.0-53.0); Hemoglobin 8.9 g/dL (13.5-17.5); Lymphocytes % (auto) 16.6 % (10.0-50.0); Mean Corpuscular Hemoglobin 32.1 pg (28.0-32.0); Mean Corpuscular Hgb Conc. 32.2 g/dL (32.0-36.0); Mean Corpuscular Volume 99.6 fL (80.0-100.0); Monocytes # (auto) 0.4 10 ^3/uL (0-1.3); Monocytes % (auto) 6.7 % (0.0-12.0); Neutrophils # (auto) 4.5 10 ^3/uL (1.6-8.6); Neutrophils % (auto) 71.7 % (37.0-80.0); Red Blood Cells 2.78 10^6/uL (4.5-5.90); Red Cell Distribution Width 19.4 % (11.8-14.3); White Blood Cell 6.3 10^3/uL (4.4-10.8)
[2023-09-14 08:00] VITALS: PULSE 67; RESP 22; O2SAT 95
[2023-09-14 08:01] LABS: Chloride 104 mmol/L (98-107); Potassium 4.8 mmol/L (3.5-5.1); Sodium 136 mmol/L (136-145)
[2023-09-14 08:02] LABS: Anion Gap 9 (5-15); Carbon Dioxide 23 mmol/L (20-30)
[2023-09-14 08:03] LABS: Calcium 7.3 mg/dL (8.5-10.1)
[2023-09-14 08:07] LABS: Glucose 88 mg/dL (74-106)
[2023-09-14 08:08] LABS: BUN/Creatinine Ratio 7.5 (10.0-20.0); Blood Urea Nitrogen 38 mg/dL (9-23)
[2023-09-14 08:10] LABS: % Iron Saturation 15.3 % (20-55)
[2023-09-14 09:00] VITALS: BP 108/51; PULSE 67; RESP 18; TEMP 98.6; O2SAT 94
[2023-09-14] MEDS: SEVELAMER 800 MG TAB PO SCH ×3 (09:07→18:00)
[2023-09-14] MEDS: ASPirin 81 mg TAB PO SCH (09:07)
[2023-09-14] MEDS: CARVEDILOL 3.125 MG TAB PO SCH (09:09)
[2023-09-14 09:19] LABS: Hepatitis B Surface Antigen Negative (Negative)
[2023-09-14 09:40] LABS: Hepatitis A Ab IgM Positive
[2023-09-14 09:41] LABS: Hepatitis B Core IgM Negative; Hepatitis C Antibody Negative (Negative)
[2023-09-14 12:06] LABS: Protein, Body Fluid 3.5 g/dL (.)
[2023-09-14 13:00] VITALS: BP 107/49; PULSE 66; RESP 18; TEMP 97.9; O2SAT 94
[2023-09-14 17:00] VITALS: BP 118/54; PULSE 76; RESP 18; TEMP 97.9; O2SAT 94
[2023-09-14] MEDS: TAMSULOSIN HYDROCHLORIDE 0.4 MG CAP PO SCH (18:00)
[2023-09-14 18:59] VITALS: BP 107/49; PULSE 66
[2023-09-14] MEDS ORDERED: EPOETIN ALFA-EPBX 10,000 UNIT/1ML VIAL SC ONE (21:00)
[2023-09-14] MEDS ORDERED: MUPIROCIN 2% OINT 15gm or 22gm FOR MRSA NARES EACHNOSTRI SCH (22:00)
== END 2023-09-14 19:25 | DRG 432 ==
LOC: EDBD 13:33 → ER 13:33 → OVERFLOW 21:00 → CENTRAL 09-13 16:14
PROVIDERS: ADMIT Nurse Practitioner; ATTEND Internal Medicine
PROC: 0W9G3ZZ Drainage of Peritoneal Cavity, Percutaneous Approach (ICD-10-PCS; principal; 2023-09-13)
PROC: 5A1D70Z Performance of Urinary Filtration, Intermittent, Less than 6 Hours Per Day (ICD-10-PCS; 2023-09-14)
DX: K74.60 Unspecified cirrhosis of liver (principal); I50.23 Acute on chronic systolic (congestive) heart failure; N18.6 End stage renal disease; R18.8 Other ascites; I13.2 Hypertensive heart and chronic kidney disease with heart failure and with stage 5 chronic kidney disease, or end stage renal disease; M84.454A Pathological fracture, pelvis, initial encounter for fracture; M84.451A Pathological fracture, right femur, initial encounter for fracture; E83.51 Hypocalcemia; K76.9 Liver disease, unspecified; R73.9 Hyperglycemia, unspecified; E88.09 Other disorders of plasma-protein metabolism, not elsewhere classified; D63.1 Anemia in chronic kidney disease; I25.10 Atherosclerotic heart disease of native coronary artery without angina pectoris; E78.5 Hyperlipidemia, unspecified; E83.39 Other disorders of phosphorus metabolism; K76.0 Fatty (change of) liver, not elsewhere classified; Z99.2 Dependence on renal dialysis; Z82.0 Family history of epilepsy and other diseases of the nervous system; Z95.5 Presence of coronary angioplasty implant and graft
CPT/HCPCS: 36415; 71045; 72192; 76705; 76942; 80048; 80053; 80074; 82728; 83540; 83550; 83690; 83986; 84100; 84443; 85025; 85610; 85730; 87081; 87205; 89051; 90935; 93005; 93306; 97110; 97116; 97163; 97530; G0378; P9047

== ENCOUNTER 2023-11-06 10:15 | Emergency (ER) | payer MEDICARE, OTHER ==
[~2023-11-06] VITALS: Ht 180.3 cm; Wt 81.8 kg
[2023-11-06 10:37] VITALS: BP 162/65; PULSE 68; RESP 18; O2SAT 98
[2023-11-06 10:51] LABS: Basophils # (auto) 0 10 ^3/uL (0-0.2); Basophils % (auto) 0.9 % (0.0-2.0); Eosinophils # (auto) 0.2 10 ^3/uL (0-0.8); Eosinophils % (auto) 4.3 % (0.0-7.0); Hematocrit 33.6 % (41.0-53.0); Hemoglobin 10.5 g/dL (13.5-17.5); Lymphocytes % (auto) 18.2 % (10.0-50.0); Mean Corpuscular Hemoglobin 29.9 pg (28.0-32.0); Mean Corpuscular Hgb Conc. 31.3 g/dL (32.0-36.0); Mean Corpuscular Volume 95.7 fL (80.0-100.0); Monocytes # (auto) 0.4 10 ^3/uL (0-1.3); Monocytes % (auto) 8.2 % (0.0-12.0); Neutrophils # (auto) 3.7 10 ^3/uL (1.6-8.6); Neutrophils % (auto) 68.4 % (37.0-80.0); Nucleated Red Blood Cells % 0.1 %; Red Blood Cells 3.51 10^6/uL (4.5-5.90); Red Cell Distribution Width 16.3 % (11.8-14.3); White Blood Cell 5.5 10^3/uL (4.4-10.8)
[2023-11-06 11:04] LABS: INR 1.17 (0.9-1.15); Partial Thromboplastin Time 34.2 SEC (24.5-34.5); Prothrombin Time 12.2 sec (9.3-11.8)
[2023-11-06 11:07] LABS: Albumin 2.8 g/dL (3.2-4.8); Alkaline Phosphatase 85 U/L (46-116); Anion Gap 8 (5-15); Aspartate Aminotransferase 16 U/L (13-40); BUN/Creatinine Ratio 8.1 (10.0-20.0); Bilirubin, Total 0.3 mg/dL (0.2-1.0); Blood Alcohol < 3.0 mg/dL (<10); Blood Urea Nitrogen 45 mg/dL (9-23); Calcium 7.5 mg/dL (8.5-10.1); Carbon Dioxide 21 mmol/L (20-30); Chloride 107 mmol/L (98-107); Glucose 130 mg/dL (74-106); Potassium 4.5 mmol/L (3.5-5.1); Sodium 136 mmol/L (136-145); Total Protein 5.5 g/dL (5.7-8.2)
[2023-11-06 11:13] LABS: Alanine Aminotransferase < 9 U/L (7-40)
== END 2023-11-06 17:06 | disposition left against medical advice (07) ==
LOC: ER 10:15 → EDBD 10:15 → ER 17:06
DX: R18.8 Other ascites (principal); I13.2 Hypertensive heart and chronic kidney disease with heart failure and with stage 5 chronic kidney disease, or end stage renal disease; N18.6 End stage renal disease; I50.9 Heart failure, unspecified; D63.1 Anemia in chronic kidney disease; E78.5 Hyperlipidemia, unspecified; R53.1 Weakness; Z86.73 Personal history of transient ischemic attack (TIA), and cerebral infarction without residual deficits; Z99.2 Dependence on renal dialysis
CPT/HCPCS: 36415; 76705; 80053; 80320; 82140; 85025; 85610; 85730